=== PATIENT | male | born 1940 | race Caucasian/White ===

== ENCOUNTER 2016-12-22 09:37 | Outpatient (CLI) | payer MEDICARE, OTHER | END 2016-12-22 09:38 | disposition critical access hospital (66) | LOC: EMS 09:37 | PROVIDERS: ATTEND Surgery | DX: R53.1 Weakness (principal); R05 Cough | CPT/HCPCS: A0425; A0429 ==

== ENCOUNTER 2016-12-22 09:38 | Observation (INO) | payer MEDICARE, OTHER ==
[2016-12-22] MEDS ORDERED: SODIUM CHLORIDE 0.9% 1,000 ML IV ONE (10:45)
[2016-12-22] MEDS ORDERED: ONDANSETRON 4 MG/2 ML VIAL IVP STA (10:45)
[2016-12-22] MEDS ORDERED: ALBUTEROL NEB 2.5 MG/3 ML INH STA (10:46)
[2016-12-22] MEDS ORDERED: ONDANSETRON 4 MG/2 ML VIAL ONE (10:47)
[2016-12-22] MEDS ORDERED: ALBUTEROL NEB 2.5 MG/3 ML INH ONE (10:55)
[2016-12-22] MEDS ORDERED: IPRATROPIUM/ALBUTEROL 3 ML NEB INH STA (12:25)
[2016-12-22] MEDS ORDERED: DEXAMETHASONE 10 MG/ML VIAL IVP STA (12:25)
[2016-12-22] MEDS ORDERED: DEXAMETHASONE 10 MG/ML VIAL ONE (12:28)
[2016-12-22] MEDS ORDERED: IPRATROPIUM/ALBUTEROL 3 ML NEB INH ONE (12:29)
[2016-12-22] MEDS ORDERED: OSELTAMIVIR 75 MG CAPSULE PO STA (13:14)
[2016-12-22] MEDS ORDERED: ACETAMINOPHEN 325 MG TABLET PO PRN (13:30)
[2016-12-22] MEDS ORDERED: ONDANSETRON 4 MG/2 ML VIAL IVP PRN (13:30)
[2016-12-22] MEDS ORDERED: SODIUM CHLORIDE FLUSH 0.9% 10 ML SYRINGE IVP PRN (13:30)
[2016-12-22] MEDS ORDERED: IPRATROPIUM/ALBUTEROL 3 ML NEB INH PRN (13:36)
[2016-12-22] MEDS ORDERED: POTASSIUM CHLORIDE 20 MEQ TABLET PO ONE (15:00)
[2016-12-22] MEDS: MAGNESIUM SULFATE 2 GRAM 50 ML IV SCH ×2 (15:01→16:43)
[2016-12-22] MEDS: SODIUM CHLORIDE FLUSH 0.9% 10 ML SYRINGE IVP SCH ×2 (15:01→17:55)
[2016-12-22] MEDS: POTASSIUM CHLORIDE 20 MEQ TABLET PO SCH ×2 (16:34→18:47)
[2016-12-22] MEDS ORDERED: MAGNESIUM SULFATE 2 GRAM 50 ML IV ONE (17:00)
[2016-12-22] MEDS: IPRATROPIUM/ALBUTEROL 3 ML NEB INH SCH ×2 (18:07)
[2016-12-22] MEDS: CARBIDOPA PO SCH (18:46)
[2016-12-22] MEDS: LEVODOPA PO SCH (18:46)
[2016-12-22] MEDS: CALCIUM CARBONATE CHEW 500 MG TABLET PO SCH (20:58)
[2016-12-22] MEDS: OSELTAMIVIR 75 MG CAPSULE PO SCH (20:58)
[2016-12-22] MEDS: guaiFENesin 600 MG TABLET PO SCH (20:59)
[2016-12-22] MEDS ORDERED: EZETIMIBE PO SCH (21:00)
[2016-12-22] MEDS ORDERED: SIMVASTATIN PO SCH (21:00)
[2016-12-22] MEDS ORDERED: CLOPIDOGREL 75 MG TABLET PO SCH (21:00)
[2016-12-22] MEDS ORDERED: SERTRALINE 50 MG TABLET PO SCH (21:00)
[2016-12-22] MEDS ORDERED: FLUDROCORTISONE 0.1 MG TABLET PO SCH (21:00)
[2016-12-23] MEDS: POTASSIUM CHLORIDE 20 MEQ TABLET PO SCH (06:39)
[2016-12-23] MEDS: SODIUM CHLORIDE FLUSH 0.9% 10 ML SYRINGE IVP SCH (06:39)
[2016-12-23] MEDS: CARBIDOPA PO SCH (06:44)
[2016-12-23] MEDS: LEVODOPA PO SCH (06:44)
[2016-12-23] MEDS ORDERED: PANTOPRAZOLE 40 MG TABLET PO SCH (07:00)
[2016-12-23] MEDS ORDERED: FLUDROCORTISONE 0.1 MG TABLET PO SCH (07:00)
[2016-12-23] MEDS: IPRATROPIUM/ALBUTEROL 3 ML NEB INH SCH (08:04)
[2016-12-23] MEDS: OSELTAMIVIR 75 MG CAPSULE PO SCH (08:37)
[2016-12-23] MEDS: guaiFENesin 600 MG TABLET PO SCH (08:37)
[2016-12-23] MEDS: CALCIUM CARBONATE CHEW 500 MG TABLET PO SCH (08:37)
[2016-12-23] MEDS ORDERED: POLYETHYLENE GLYCOL 3350 17 GM PACKET PO SCH (09:00)
[2016-12-23] MEDS ORDERED: ENOXAPARIN 40 MG/0.4 ML SYRINGE SUBQ SCH (09:00)
[2016-12-23] MEDS ORDERED: FLUTICASONE NASAL SPRAY NAS SCH (09:00)
[2016-12-23] MEDS ORDERED: DONEPEZIL 5 MG TABLET PO SCH (12:00)
== END 2016-12-23 11:37 | disposition home or self-care (01) ==
DX: J10.1 Influenza due to other identified influenza virus with other respiratory manifestations (principal); E86.0 Dehydration; G20 Parkinson's disease; I10 Essential (primary) hypertension; I25.10 Atherosclerotic heart disease of native coronary artery without angina pectoris; I25.2 Old myocardial infarction; I11.9 Hypertensive heart disease without heart failure; H54.7 Unspecified visual loss; Z95.5 Presence of coronary angioplasty implant and graft; Z85.46 Personal history of malignant neoplasm of prostate; Z92.3 Personal history of irradiation; K21.9 Gastro-esophageal reflux disease without esophagitis; Z79.02 Long term (current) use of antithrombotics/antiplatelets; Z79.899 Other long term (current) drug therapy
CPT/HCPCS: 36415; 71010; 80048; 80053; 83605; 83690; 83735; 85025; 87275; 87276; 94640; 96365; 96366; 96375; 99284; 99285; A9270; G0378; J7613; J7620

== ENCOUNTER 2017-05-16 11:28 | Outpatient (CLI) | payer MEDICARE, OTHER | END 2017-05-16 11:29 | disposition critical access hospital (66) | LOC: EMS 11:28 | PROVIDERS: ATTEND Surgery | DX: R55 Syncope and collapse (principal); R53.1 Weakness | CPT/HCPCS: A0425; A0427 ==

== ENCOUNTER 2017-05-16 11:48 | Emergency (ER) | payer MEDICARE, OTHER ==
[2017-05-16] MEDS ORDERED: SODIUM CHLORIDE 0.9% 1,000 ML IV ONE (12:26)
--- NOTE | 2017-05-16 12:26 | ED Physician Documentation ---
PD HPI SYNCOPE - Stated complaint Stated Complaint: syncope - Chief complaint Chief Complaint: Neuro - History obtained from History obtained from: Patient, Family, EMS - History of Present Illness Witnessed: Witnessed (76-year-old gentleman with history of labile blood pressure for which she takes Midrin and Florinef, he also has a history of coronary disease and Parkinson's disease. He was at rehab today and bent over to adjust the seat on the weight machine and on getting back up he started to feel dizzy and had brief syncope without injury, he was helped to the ground. On initial evaluation there, his blood pressure was as low as 50/30 and his blood sugar was borderline low. On arrival here he feels fine, and his blood pressures are high. There is no associated chest pain, shortness of breath, or recent dark or tarry stools.) Review of Systems Ten Systems: 10 systems reviewed and negative Constitutional: denies: Fever, Chills Cardiac: denies: Chest pain / pressure, Palpitations Respiratory: denies: Dyspnea, Cough GI: denies: Abdominal Pain, Bloody / black stool PD PAST MEDICAL HISTORY - Past Medical History Cardiovascular: Hypertension, High cholesterol, Coronary artery disease, [place] Respiratory: None Neuro: Parkinson's Endocrine/Autoimmune: None GI: GERD : Other HEENT: Chronic vision loss Psych: None Musculoskeletal: Osteoarthritis Derm: None - Past Surgical History Past Surgical History: Yes General: Appendectomy, Hiatal hernia repair Cardiovascular: Coronary stent HEENT: Cataracts, Tonsil/Adenoidectomy - Present Medications Home Medications: Ambulatory Orders Medication Instructions Recorded Confirmed Ezetimibe/Simvastatin [Vytorin 1 each PO DAILY 10/29/13 05/16/17 10-20 mg Tablet] Mometasone Furoate [Nasonex] 2 sprays LISE DAILY 10/29/13 05/16/17 Sertraline [Zoloft] 100 mg PO DAILY 10/29/13 05/16/17 Potassium Chloride [K-Dur] 20 meq PO QID 02/22/14 05/16/17 Carbidopa/Levodopa [Rytary ER 4 cap PO TID 05/31/16 05/16/17 23.75 mg-95 mg Cap] Donepezil HCl 10 mg PO DAILY 05/31/16 05/16/17 Midodrine HCl 10 mg PO TID 05/31/16 05/16/17 Pantoprazole Sodium [Protonix] 40 mg PO DAILY 05/31/16 05/16/17 Fludrocortisone [Florinef] 0.1 mg PO QPM 12/22/16 05/16/17 Fludrocortisone [Florinef] 0.2 mg PO 0700 12/22/16 05/16/17 Clopidogrel [Plavix] 75 mg PO QPM tablet 12/23/16 05/16/17 - Allergies Allergies/Adverse Reactions: Allergies Allergy/AdvReac Type Severity Reaction Status Date / Time morphine Allergy Hallucinati Verified 05/16/17 11:57 ons - Social History Does the pt smoke?: No Smoking Status: Former smoker Does the pt drink ETOH?: No Does the pt have substance abuse?: No - Family History Family history: reports: Non contributory - Immunizations Immunizations are current?: Yes - POLST Patient has POLST: No POLST Status: Full Code PD ED PE NORMAL - Vitals Vital signs reviewed: Yes - General General: Alert and oriented X 3, No acute distress, Other (Pill-rolling tremor) - HEENT HEENT: PERRL, EOMI - Neck Neck: Supple, no meningeal sign, No bony TTP - Cardiac Cardiac: RRR, No murmur - Respiratory Respiratory: No respiratory distress, Clear bilaterally - Abdomen Abdomen: Non tender - Extremities Extremities: No edema, No calf tenderness / cord - Neuro Neuro: Alert and oriented X 3, Normal speech - Psych Psych: Normal mood, Normal affect Results - Vitals Vitals: Vital Signs - 24 hr 05/16/17 11:49 Temperature 36.7 C Heart Rate 56 L Respiratory 12 Rate Blood Pressure 176/72 H O2 Saturation 98 Oxygen O2 Source Room air - EKG (time done) 1157 Rate: Rate (enter#) (59) Rhythm: NSR [place]: Normal Ischemia: Non specific changes (Mild QTC long and flat T waves inf/lat, unchanged from 05/31/16) Computer interpretation: Agree with computer - Labs Labs: Laboratory Tests 05/16/17 05/16/17 12:14 12:14 WBC 6.0 RBC 3.75 L Hgb 12.4 L Hct 36.7 L MCV 97.7 H MCH 32.9 H MCHC 33.7 RDW 14.3 Plt Count 166 MPV 9.0 Neut # 4.3 Lymph # 1.1 L [place] # 0.4 Eos # 0.2 Baso # 0.1 Absolute Nucleated RBC 0.01 Nucleated RBCs 0.1 Sodium 141 Potassium 3.4 L Chloride 105 Carbon Dioxide 28 Anion Gap 8.0 BUN 16 Creatinine 1.1 Estimated GFR (MDRD) 65 L Glucose 98 Calcium 8.8 Magnesium 1.8 Total Bilirubin 1.0 AST 14 ALT < 10 L Alkaline Phosphatase 66 Total Protein 6.5 L Albumin 3.8 Globulin 2.7 Albumin/Globulin Ratio 1.4 Lipase 54 H PD MEDICAL DECISION MAKING - ED course ED course: 76-year-old gentleman with history of labile blood pressure presents after syncopal episode with hypotension, now resolved. This is not a new phenomenon for him, per the he has this every few months and IV fluids are curative. He remained stable, slightly hypertensive throughout his of ER stay without recurrent syncope or symptoms and preferred discharge. Departure - Departure Disposition: 01 Home, Self Care Clinical Impression: Transient hypotension Syncope Qualifiers: Syncope type: unspecified Qualified Code(s): R55 - Syncope and collapse Hypertension Qualifiers: Hypertension type: essential hypertension Qualified Code(s): I10 - Essential ( primary) hypertension Condition: Good Record reviewed to determine appropriate education?: Yes Instructions: ED Dizziness Syncope Fainting W Pre Comments: Follow-up, next available appointment with Dr. Jimenez, medication changes may be in order. Return if worse.
[2017-05-16 12:51] LABS: BASOPHILS # (AUTO) 0.1 10^3/uL (0.0-0.1); EOSINOPHILS # (AUTO) 0.2 10^3/uL (0.0-0.7); EOSINOPHILS % (AUTO) 3.4 %; HCT - HEMATOCRIT 36.7 % (42.0-52.0); HGB - HEMOGLOBIN 12.4 g/dL (14.0-18.0); LYMPHOCYTES # (AUTO) 1.1 10^3/uL (1.5-3.5); LYMPHOCYTES % (AUTO) 17.8 %; MEAN CORPUSCULAR HEMOGLOBIN 32.9 pg (27.0-31.0); MEAN CORPUSCULAR HGB CONC 33.7 g/dL (32.0-36.0); MEAN CORPUSCULAR VOLUME 97.7 fL (80.0-94.0); MONOCYTES # (AUTO) 0.4 10^3/uL (0.0-1.0); MONOCYTES % (AUTO) 6.5 %; NEUTROPHILS # (AUTO) 4.3 10^3/uL (1.5-6.6); NEUTROPHILS % (AUTO) 71.3 %; NUCLEATED RED BLOOD CELLS AUTO 0.1 /100WBC; RED BLOOD COUNT 3.75 10^6/uL (4.70-6.10); RED CELL DISTRIBUTION WIDTH 14.3 % (12.0-15.0)
[2017-05-16 13:21] LABS: ALBUMIN/GLOBULIN RATIO 1.4 (1.0-2.2); BUN - BLOOD UREA NITROGEN 16 mg/dL (6-20); CALCIUM 8.8 mg/dL (8.5-10.3); CARBON DIOXIDE - CO2 28 mmol/L (21-32); CHLORIDE 105 mmol/L (101-111); CREATININE 1.1 mg/dL (0.6-1.2); GFR - MDRD 65 (>89); GLUCOSE 98 mg/dL (70-100); LIPASE 54 U/L (22-51); MAGNESIUM 1.8 mg/dL (1.7-2.8); POTASSIUM 3.4 mmol/L (3.5-5.0); SODIUM 141 mmol/L (135-145); TOTAL PROTEIN 6.5 g/dL (6.7-8.2)
[2017-05-16 13:45] VITALS: BP 167/69
== END 2017-05-16 13:55 | disposition home or self-care (01) ==
LOC: EDUNIT# → ED 11:48
DX: I95.89 Other hypotension (principal); R55 Syncope and collapse; I10 Essential (primary) hypertension; I25.10 Atherosclerotic heart disease of native coronary artery without angina pectoris; Z98.61 Coronary angioplasty status; G20 Parkinson's disease; E78.00 Pure hypercholesterolemia, unspecified; I25.2 Old myocardial infarction; K21.9 Gastro-esophageal reflux disease without esophagitis; M19.90 Unspecified osteoarthritis, unspecified site; Z87.891 Personal history of nicotine dependence
CPT/HCPCS: 36415; 80053; 83690; 83735; 85025; 93005; 96360; 99284; 99285

== ENCOUNTER 2017-06-25 18:49 | Outpatient (CLI) | payer MEDICARE, OTHER | END 2017-06-25 18:50 | disposition critical access hospital (66) | LOC: EMS 18:49 | PROVIDERS: ATTEND Surgery | DX: R19.7 Diarrhea, unspecified (principal); R53.1 Weakness | CPT/HCPCS: A0425; A0427 ==

== ENCOUNTER 2017-06-25 19:09 | Inpatient (IN) | payer MEDICARE, OTHER ==
[2017-06-25] MEDS ORDERED: SODIUM CHLORIDE 0.9% 1,000 ML IV ONE (19:34)
--- NOTE | 2017-06-25 19:38 | ED Physician Documentation ---
History of Present Illness - Stated complaint Stated Complaint: WEAKNESS/DIARRHEA - Chief complaint Chief Complaint: Neuro - History obtained from History obtained from: Patient, Family - History of Present Illness Timing: Other (77-year-old gentleman with history of Parkinson's, coronary disease, and labile blood pressures has had poor appetite and increasing fatigue for a week. He slipped and fell in the shower 2 nights ago when has persistent headache and neck pain since then and note made that he is on Plavix. He is bruise above his right eye. Since yesterday he has had profuse watery foul-smelling diarrhea with occasional but not current stomach cramps but no fevers or recent antibiotics. He was hypotensive for paramedics and feeling better after a fluid bolus in route.) Review of Systems Ten Systems: 10 systems reviewed and negative Constitutional: denies: Fever, Chills Throat: denies: Dental pain / toothache, Sore throat Cardiac: denies: Chest pain / pressure, Palpitations Respiratory: denies: Dyspnea, Cough PD PAST MEDICAL HISTORY - Past Medical History Cardiovascular: Hypertension, High cholesterol, Coronary artery disease, [place] Respiratory: None Neuro: Parkinson's Endocrine/Autoimmune: None GI: GERD : Other HEENT: Chronic vision loss Psych: None Musculoskeletal: Osteoarthritis Derm: None - Past Surgical History Past Surgical History: Yes General: Appendectomy, Hiatal hernia repair Cardiovascular: Coronary stent HEENT: Cataracts, Tonsil/Adenoidectomy - Present Medications Home Medications: Ambulatory Orders Medication Instructions Recorded Confirmed Ezetimibe/Simvastatin [Vytorin 1 each PO DAILY 10/29/13 06/25/17 10-20 mg Tablet] Sertraline [Zoloft] 100 mg PO DAILY 10/29/13 06/25/17 Potassium Chloride [K-Dur] 20 meq PO QID 02/22/14 06/25/17 Carbidopa/Levodopa [Rytary ER 4 cap PO TID 05/31/16 06/25/17 23.75 mg-95 mg Cap] Donepezil HCl 10 mg PO DAILY 05/31/16 06/25/17 Midodrine HCl 5 mg PO TID 05/31/16 06/25/17 Pantoprazole Sodium [Protonix] 40 mg PO DAILY 05/31/16 06/25/17 Fludrocortisone [Florinef] 0.1 mg PO QPM 12/22/16 06/25/17 Fludrocortisone [Florinef] 0.2 mg PO 0700 12/22/16 06/25/17 Clopidogrel [Plavix] 75 mg PO QPM tablet 12/23/16 06/25/17 Fluticasone Propionate 1 spray LISE DAILY 06/25/17 06/25/17 Naproxen 500 mg PO DAILY PRN 06/25/17 06/25/17 - Allergies Allergies/Adverse Reactions: Allergies Allergy/AdvReac Type Severity Reaction Status Date / Time morphine Allergy Hallucinati Verified 06/25/17 19:16 ons - Living Situation Living Situation: reports: With spouse/s.o. - Social History Does the pt smoke?: No Smoking Status: Former smoker Does the pt drink ETOH?: No Does the pt have substance abuse?: No - Family History Family history: reports: Non contributory - Immunizations Immunizations are current?: Yes - POLST Patient has POLST: No POLST Status: Full Code PD ED PE NORMAL - Vitals Vital signs reviewed: Yes - General General: No acute distress, Well developed/nourished - HEENT HEENT: PERRL, EOMI, Other (Small ecchymosis in the right supraorbital area without facial bony tenderness) - Neck Neck: Supple, no meningeal sign, No bony TTP - Cardiac Cardiac: Other (Irregular irregular and slightly distant but no murmur) - Respiratory Respiratory: No respiratory distress, Clear bilaterally - Abdomen Abdomen: Normal bowel sounds, Soft, Non tender - Extremities Extremities: No deformity, No tenderness to palpate, No edema, No calf tenderness / cord - Neuro Neuro: No motor deficit, No sensory deficit - Psych Psych: Normal mood, Normal affect Results - Vitals Vitals: Vital Signs - 24 hr 06/25/17 06/25/17 19:10 21:12 Temperature 36.3 C L Heart Rate 73 54 L Respiratory 16 16 Rate Blood Pressure 154/68 H 151/78 H O2 Saturation 96 97 Oxygen O2 Source Room air - EKG (time done) 1952 Rate: Rate (enter#) (53) Rhythm: NSR (with PACs) [place]: Normal Intervals: Normal [place] Ischemia: Q waves (small inferior) Computer interpretation: Agree with computer - Labs Labs: Laboratory Tests 06/25/17 06/25/17 06/25/17 19:43 19:43 19:43 WBC 7.8 RBC 4.04 L Hgb 13.4 L Hct 40.6 L MCV 100.5 H MCH 33.1 H MCHC 33.0 RDW 14.7 Plt Count 175 MPV 8.7 Neut # 5.8 Lymph # 1.0 L [place] # 0.7 Eos # 0.2 Baso # 0.1 Absolute Nucleated RBC 0.00 Nucleated RBCs 0.1 Sodium 141 Potassium 3.4 L Chloride 108 Carbon Dioxide 23 Anion Gap 10.0 BUN 16 Creatinine 1.5 H Estimated GFR (MDRD) 45 L Glucose 104 H Lactic Acid Calcium 8.6 Magnesium 1.6 L Total Bilirubin 0.9 AST 17 ALT < 10 L Alkaline Phosphatase 63 Troponin I < 0.04 Total Protein 6.4 L Albumin 4.0 Globulin 2.4 Albumin/Globulin Ratio 1.7 Lipase 152 H 06/25/17 19:43 WBC RBC Hgb Hct MCV MCH MCHC RDW Plt Count MPV Neut # Lymph # [place] # Eos # Baso # Absolute Nucleated RBC Nucleated RBCs Sodium Potassium Chloride Carbon Dioxide Anion Gap BUN Creatinine Estimated GFR (MDRD) Glucose Lactic Acid 1.1 Calcium Magnesium Total Bilirubin AST ALT Alkaline Phosphatase Troponin I Total Protein Albumin Globulin Albumin/Globulin Ratio Lipase - Rads (name of study) CT Head and Cspine Radiology: EMP read contemporaneously (No acute disease, there are degenerative changes in the neck and some atrophy in the head.) PD MEDICAL DECISION MAKING - ED course ED course: 87-year-old gentleman with Parkinson's, coronary disease presents with a week's worth of malaise and poor appetite with a fall with head injury and now diarrhea with evidence of dehydration and acute renal failure with a rise in his creatinine. He was hypotensive prior to arrival. We were able to obtain a stool culture and C. difficile in the emergency department, however with the rise in his creatinine I discussed the case with Dr. Brooks at 1015pm who will place him in observation for dehydration. Departure - Departure Disposition: ED Place in Observation Clinical Impression: Transient hypotension, Hx of coronary artery disease, Parkinson disease, Moderate dehydration Concussion Qualifiers: Encounter type: initial encounter Loss of consciousness presence/duration: with LOC of 30 min or less Qualified Code(s): S06.0X1A - Concussion with loss of consciousness of 30 minutes or less, initial encounter Syncope Qualifiers: Syncope type: unspecified Qualified Code(s): R55 - Syncope and collapse Neck strain Qualifiers: Encounter type: initial encounter Qualified Code(s): S16.1XXA - Strain of muscle, fascia and tendon at neck level, initial encounter Condition: Stable
[2017-06-25 19:47] LABS: BASOPHILS # (AUTO) 0.1 10^3/uL (0.0-0.1); BASOPHILS % (AUTO) 1.1 %; EOSINOPHILS # (AUTO) 0.2 10^3/uL (0.0-0.7); EOSINOPHILS % (AUTO) 3.2 %; HCT - HEMATOCRIT 40.6 % (42.0-52.0); HGB - HEMOGLOBIN 13.4 g/dL (14.0-18.0); LYMPHOCYTES % (AUTO) 12.7 %; MEAN CORPUSCULAR HEMOGLOBIN 33.1 pg (27.0-31.0); MEAN CORPUSCULAR VOLUME 100.5 fL (80.0-94.0); MEAN PLATELET VOLUME 8.7 fL (7.4-11.4); MONOCYTES # (AUTO) 0.7 10^3/uL (0.0-1.0); MONOCYTES % (AUTO) 8.7 %; NEUTROPHILS # (AUTO) 5.8 10^3/uL (1.5-6.6); NEUTROPHILS % (AUTO) 74.3 %; NUCLEATED RED BLOOD CELLS AUTO 0.1 /100WBC; RED BLOOD COUNT 4.04 10^6/uL (4.70-6.10); RED CELL DISTRIBUTION WIDTH 14.7 % (12.0-15.0); UNCORRECTED WHITE BLOOD COUNT 7.8 x10^3/uL; WHITE BLOOD COUNT 7.8 x10^3/uL (4.8-10.8)
[2017-06-25 20:12] LABS: ALBUMIN/GLOBULIN RATIO 1.7 (1.0-2.2); BILIRUBIN,TOTAL 0.9 mg/dL (0.2-1.0); BUN - BLOOD UREA NITROGEN 16 mg/dL (6-20); CALCIUM 8.6 mg/dL (8.5-10.3); CARBON DIOXIDE - CO2 23 mmol/L (21-32); CHLORIDE 108 mmol/L (101-111); CREATININE 1.5 mg/dL (0.6-1.2); GFR - MDRD 45 (>89); GLUCOSE 104 mg/dL (70-100); LIPASE 152 U/L (22-51); MAGNESIUM 1.6 mg/dL (1.7-2.8); POTASSIUM 3.4 mmol/L (3.5-5.0); SODIUM 141 mmol/L (135-145); TOTAL PROTEIN 6.4 g/dL (6.7-8.2)
--- NOTE | 2017-06-25 20:31 | CT Preliminary Report ---
Exam: CT Head W/O IMPRESSION: Generalized age-related cortical atrophic changes without evidence of acute intracranial abnormality. No significant interval change. [facility] SITE ID: [id number]
--- NOTE | 2017-06-25 20:33 | CT Preliminary Report ---
Exam: CT Cervical Spine W/O IMPRESSION: Stable degenerative changes. No evidence of acute fracture. [facility] SITE ID: [id number]
--- NOTE | 2017-06-25 20:34 | CT Report ---
EXAM: CT HEAD EXAM DATE: 06/25/2017 08:17 PM. CLINICAL HISTORY: Head/neck injury. COMPARISON: 03/10/2016. TECHNIQUE: Multiaxial CT images were obtained from the foramen magnum to the vertex. IV contrast: Non e. Reformats: Coronal. In accordance with CT protocol optimization, one or more of the following dose reduction techniques w ere utilized for this exam: automated exposure control, adjustment of mA and/or KV based on patient s ize, or use of iterative reconstructive technique. FINDINGS: Parenchyma: No intraparenchymal hemorrhage. No evidence of mass, midline shift, or CT findings of acu te infarction. Carrero-white differentiation is distinct. Extraaxial Spaces: Normal for age. No subdural or epidural collections identified. Ventricles: The ventricles and cortical sulci are enlarged, consistent with age-related tissue loss. Sinuses: Imaged paranasal sinuses, orbits, and mastoids show no significant abnormality. Bones: No evidence of fracture or calvarial defect. Other: Diffuse chronic microangiopathic white matter changes are evident. IMPRESSION: Generalized age-related cortical atrophic changes without evidence of acute intracranial abnormality. No significant interval change. [facility] Referring Provider Line: [phone] SITE ID: [id number]
--- NOTE | 2017-06-25 20:36 | CT Report ---
EXAM: CT CERVICAL SPINE WITHOUT CONTRAST DATE: 06/25/2017 08:17 PM HISTORY: Head/neck injury. COMPARISONS: 03/10/2016. TECHNIQUE: Thin-section axial images were acquired of the cervical spine without contrast. Post-proce ssing: Coronal and sagittal reformats. Other: None. In accordance with CT protocol optimization, one or more of the following dose reduction techniques w ere utilized for this exam: automated exposure control, adjustment of mA and/or KV based on patient s ize, or use of iterative reconstructive technique. FINDINGS: Alignment: Normal. No scoliosis or spondylolisthesis. Bones: No fracture or bone lesion. Interspace Levels/Facets: Degenerative changes are stable from previous. Musculature: Normal. No fatty atrophy. Other: The paravertebral and prevertebral soft tissues are normal. The lung apices are clear. IMPRESSION: Stable degenerative changes. No evidence of acute fracture. [facility] Referring Provider Line: [phone] SITE ID: [id number]
[2017-06-25] MEDS ORDERED: ACETAMINOPHEN 325 MG TABLET PO PRN (22:13)
[2017-06-25] MEDS ORDERED: HYDROcod/ACETAM 5/325 MG TABLET PO PRN (22:13)
--- NOTE | 2017-06-26 00:04 | ADVANCE CARE PLANNING NOTE ---
Advance Care Planning - Date/Time Date: 06/26/17 Time: 00:03 (started at 23:10 06/25/17) - Purpose of encounter Text: Establish what his goals of care were in the face of a gentleman who is sharply deteriorating from parkinsonism - Parties in attendance Parties in attendance: Hospitalist, Dr. Ana Brooks Patient - Decisional capacity Decisional capacity of: Patient is still intact. He acknowledges memory loss, especially short-term, but still able to express his wishes fully as well as expresses sadness and frustration with this disease process - Subjective/Patient's story Subjective/Patient's story: He was born in [place] but was raised in the [place]. 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 Then he went into the [employer] for over 20 years. 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 He retired at the age of 69. He had to retire because he had already developed heart disease and was slowing down because of it. But he really noticed a change when he found it more more difficult to keep track of things. 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 When he would try and get in and out of a car, especially a two seater with a backseat, he could not do it. He also used to ride dirt bikes. And he remembers one incident where he took his son and [id number] out on the trails. As he was coming around a turn, he was going to stop, look at the view. And when he stopped, he just could not make his foot get off the foot rest and go to the ground. As such when he stopped, never put out his leg, and the bike and he just went over ass over tea kettle. After several months of worsening short term memory loss and gait instability, he was diagnosed with parkinsonism. In the intervening time he has probably developed prostate cancer, and is continued to have heart problems with stents placed. The prostate cancer leaves him with urgency, frequency, nocturia. He has to pee at least once an hour. This is problematic because he has problems with balance that severe. He has developed severe orthostatic hypotension with his parkinsonism and standing up causes him to pass out at times. So he compensates by now having a bedside urinal and a night light in the bed room. He has fallen in the darkness of the bedroom many times trying to get to the bathroom. The passing out started about the same time as his balance issues 15 years ago. He feels that he has taken a sharp turn in the downward direction over the last year. He is more more dependent on his for everything. He can still get up and go to the bathroom, wiped himself. He can undress and get into the shower and bathe himself. Get out of the shower. But when he starts toweling himself off he will lose his balance. He is fallen half a dozen times in the bathroom this last year alone. He is fallen several times in his bedroom. He is able to walk 15 yards of a very slight upward grade in his driveway, up 2 steps into his house, but by the time he gets into the living room he is completely unbalanced. So he has fallen in his living room. He has a walker that he rarely uses. And he has a cane that is hanging up in the closet that he probably never uses. In addition to the ataxia and falls, shortness of breath, urination problems, he is starting to develop dysphagia. He has lost his appetite, and between the anorexia and the sensation of choking , he is not eating. He is probably lost about 70 pounds in the last year alone. He does not want to think about it, but he is starting to feel like the end is coming soon maybe within a year. He has not talked about it with his . He has ideas about what he is willing to accept with his deterioration. And beyond those limits, he does not want to be kept alive. He never wants to go to a residential. But at the same time he acknowledges that his is becoming more more overwhelmed with his care. He dreads the day that she tells him that he may have to go to a long-term facility. His daughter moved in with them 2 or 3 months ago to help take care of him. But even between help from his and his daughter, he wonders if he is going to overwhelm them with his needs. He says that if he is debilitated to the point that he can no longer get out of bed, no longer feed himself, no longer go to the bathroom and be able to help people help him, he is done. He doesn't want to live anymore. Right now, diarrhea has been present for 2 weeks. No one else is sick with it. In the last 2 days he has had rectal incontinence. he is humiliated and frustrated. No blood in the stool. No fever, chills. Mild lower abdominal, pelvic cramping with a strong urge to go. Appetite is worse than ever. - Objective/Medical story Objective/Medical Story: 76-year-old white male with a past medical history of Parkinson's disease associated with orthostatic hypotension and labile blood pressure. He has a history of 3 myocardial infarctions and 2 cardiac stents. Prostate cancer. That was treated with seed implant. He has hyperlipidemia, hypertension in the past. He is a gradual worsening history with regards to parkinsonism that developed 15 years ago. He has a history of multiple multiple falls in the home, orthostatic syncope. He is gradually losing ground and sharply losing it over the last year. was taking care of him and now has her daughter moved in to help take care of them as well in the last 2-3 months. His admissions to the hospital since 2013 have been for appendicitis, elective inguinal hernia repair, rule out [place] with angina, and worsening of his parkinsonism in the face of fluid in December 2016. He now presents with a two-week history of diarrhea getting gradually worse. No fever no chills no blood. No recent antibiotic use. No one else is sick in the home. No recent travel. He is afebrile, hypotensive, and lab studies show a doubling of his creatinine indicating dehydration. - Goals of Care Goals of care determinations: 1. He wants to at home. 2. He never wants to go to a long-term facility. 3. He already feels that he is a burden to his family with the amount of help he needs, but he draws a line it being completely bedbound unable to get out of bed anymore. 4. He never wants to have tube feedings, and he never wants to be resuscitated in the event of a massive cardiac arrest, respiratory arrest, or stroke - Plan Plan: 1. I pointed out to him that he is actually made a lot of decisions on his own. He has thought quite a bit about this. But he needs to share his thought process and his desires with his and kids as well as his primary care provider, Dr. Jimenez. 2. After discussion with his family, consider palliative care with transition to hospice care when the time comes based on his criteria of what is acceptable. He will let Dr. Jimenez know when he is ready for the initial step of Palliative Care. 3. Flesh out his goals with regards to staying at home and never going to a long-term facility. What does that mean in the inevitability of progressive lack of ambulation, inability to swallow, and more memory loss. How will his and daughter deal with that? He thinks he has enough finances to hire in-home support for several hours a day to help his and daughter. He should start researching that and explore people to hire now. 4. He wishes to be DO NOT RESUSCITATE DO NOT INTUBATE. In looking at our Summary in [employer], there is no POLST form for the patient. I have tried to access [employer] but there is an error in entering into the patient's chart area. For completeness sake, will probably fill out a pulsed form before he leaves - Code Status Code Status: Do Not Attempt Resuscitation - Time Spent on Advance Care Planning Time spent on advance care plannin minutes
[2017-06-26] MEDS: SODIUM CHLORIDE 0.9% 1,000 ML IV SCH ×2 (00:40→11:24)
[2017-06-26] MEDS: SODIUM CHLORIDE FLUSH 0.9% 10 ML SYRINGE IVP PRN (00:40)
[2017-06-26] MEDS ORDERED: MAGNESIUM SULFATE 2 GRAM 50 ML IV SCH (01:35)
[2017-06-26] MEDS ORDERED: POTASSIUM CHLORIDE 20 MEQ TABLET PO SCH (02:00)
--- NOTE | 2017-06-26 04:42 | HISTORY & PHYSICAL EXAMINATION ---
DATE OF ADMISSION: 06/25/2017 PRIMARY CARE PROVIDER: Cecil Jimenez PA-C ADMITTING PROVIDER: Ana Brooks MD CHIEF COMPLAINT: Severe diarrhea with increasing weakness and superimposed orthostatic hypotension on already chronic hypotension. HISTORY OF PRESENT ILLNESS: The patient is an exceedingly pleasant 77-year-old white male who unfortunately developed parkinsonism about 15 years ago. His parkinsonism has progressed with increasing falls, increasing ataxia and severe orthostatic hypotension requiring Florinef and midodrine. He also has significant coronary artery disease with 3 myocardial infarctions, and 2 stents. In the last few years. He has been hospitalized for appendicitis in October 2013, rule out ID in May 2016, and severe worsening with parkinsonism in the face of influenza December 2016. He has been losing ground significantly over the last year. He describes increasing fall, increasing dysphasia, increasing urinary incontinence, as well as a 70 pound weight loss. He has had no recent antibiotic therapy. No one else in the family is sick. He has had no recent travel, but he developed diarrhea about 2 weeks ago. The diarrhea smelt horrible. It is putrid and he says that it smells worse than somebody dying. There has been no blood in the stool. He has lower pelvic cramping associated with it and a strong urgency to go. In the last couple of days, he has not had the strength to get to the bathroom in time and he has had loss of control. This gentleman already has episodes of syncope because of orthostatic hypotension and this has made everything worse. He has no appetite. A few months ago he was tried on Flomax and it caused syncope so he is not doing that anymore either. He slipped and fell in the shower 2 nights ago. He has persisted back of head pain and stiff neck since that time. He is on Plavix. I am not clear about why EMS was activated for this, but he was hypotensive in the field and brought in to the emergency room. He says he does not know why he was brought in by EMS either. He was evaluated by Dr. Taylor, where he was afebrile, and in the supine position, had normal blood pressure of 154/68. O2 saturation was 96%. He was evaluated to make sure he did not have a C-spine fracture, subdural hematoma, urinary tract infection. Other than the ecchymosis in the right supraorbital area, nothing else was found on physical exam. Stool is C difficile negative. However, the patient is hypokalemic, and has a creatinine that has gone from 0.9 to 1.5. In the face of the fact that he is already hypotensive from his disease process, and has diarrhea, most likely making him dehydrated again, he is being placed in observation for hydration and correction of his electrolyte imbalance. PAST MEDICAL HISTORY: 1. Coronary artery disease, status post 3 MIs and subsequent percutaneous interventions. 2. Appendicitis 10/2013 with appendectomy. 3. History of elective right inguinal hernia repair and subsequent left inguinal hernia repair. 4. Prostate cancer status post radiation seeding. 5. Gastroesophageal reflux disease with hiatal hernia and repair. 6. Hypertension. 7. Dyslipidemia. 8. Parkinson disease with subsequent short-term memory loss, dysphagia, severe gait ataxia, orthostatic hypotension. 9. Mild obstructive sleep apnea hypopnea syndrome. Last used CPAP approximately 09/2013. 10. Status post tonsillectomy 11. history of intraoccular lens implant after cataract removal. ALLERGIES: MORPHINE CAUSES NAUSEA AND VOMITING. MEDICATIONS: 1. Donezepil 10 mg daily. 2. Florinef 0.2 mg at 7 in the morning and 0.1 mg in the evening. 3. Fluticisone nasal spray 1 spray each nostril daily. 4. Potassium 20 mEq 4 times a day. 5. Midodrine 5 mg 3 times a day. 6. Naproxen 500 mg daily. 7. Protonix 40 mg daily. 8. Carbidopa/levodopa extended release 23.75 mg 4 capsules p.o. t.i.d. 9. Vytorin, unknown dose daily. 10. Zoloft 100 mg daily. 11. Plavix 75 mg daily. SOCIAL HISTORY: He was born in [place], [place], but raised in the [facility]. 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 He smoked cigarettes when he was in the [employer]. Never had problems with alcohol abuse. He has no history of recreational substance abuse. He is to his first , they live in their own home. It is becoming increasingly difficult for him, and he says that his has become overwhelmed and daughter moved in 2-3 months ago to help take care of him. FAMILY HISTORY: Father and mother are of old age. His children are adopted. REVIEW OF SYSTEMS CONSTITUTIONAL: He has had a gradual failing constitutionally over the last year with increasing weight loss, dysphasia, falls. Denies fevers, sweats. ENT: Increasing dysphasia and sensation of choking. Denies vision loss. Cataracts have already been taken care of. PULMONARY: Denies coughing, wheezing, chest congestion. Has no history of emphysema. CARDIAC: Denies history of congestive heart failure, but has had chronic dyspnea on exertion for the last 3-4 years. No real edema, orthopnea. Has not had angina since his rule out ID admission 05/2016. Denies atrial fibrillation. Valvular heart disease. He had an echocardiogram in May 2016, which showed mild concentric left ventricular hypertrophy and an ejection fraction of 55%. Mild sclerotic aortic and mitral valve. GASTROINTESTINAL: Positive as above. GENITOURINARY: Positive as above. SKIN: Because of his falls, he is covered in bruises, but denies body rashes or other skin lesions other than the bruises. PSYCHIATRIC: Gradually increasing depression and sadness and grief. He says he is not afraid to , but has been procrastinating thinking about the inevitability. CENTRAL NERVOUS SYSTEM: Positive as above. PHYSICAL EXAMINATION: GENERAL: On examination, he is an exceedingly pleasant, lean, lanky, elderly male, who is lying comfortably in the bed and has bilateral pinrolling tremors as he tries to raise his arm and scratch his scalp. He is comfortable. VITAL SIGNS: Temperature of 36.3, pulse in the 50s that is sinus, blood pressure 157/67, respirations 18, 97% on room air. HEENT: On head and neck examination, he has enough male pattern baldness that he has developed actinic keratoses on his scalp. He has a bruise over his right eyebrow. Pupils are reactive. Sclerae nonicteric. Some nystagmus in the horizontal. Oral mucosa is quite dry, pink, but there is a laceration of the tongue. No buccal mucosal lesions. Poor dentition and halitosis. NECK: Supple with shotty adenopathy, no goiter or bruits. LUNGS: Clear to auscultation and percussion. Initially, he has one rhonchi in the right mid lung and then he coughs and that clears. No increased respiratory effort talking to me. CARDIOVASCULAR: PMI is normally placed with a regular rate and rhythm. ABDOMEN: Soft, scaphoid, nontender with hyperactive bowel sounds. Nondistended. No rebound or guarding. There is some discomfort in the suprapubic area, but not severe. EXTREMITIES: Gaunt with severe muscle wasting. Trace edema around the malleoli. No clubbing or cyanosis. SKIN: Covered in bruises, especially the forearms, shins, buttock. NEUROLOGICAL: He has bilateral pin rolling tremors with the right worse than the left. He is unable to sit up in bed without my assisting him in getting his feet to the floor when I helped him. When he does do this, he gets lightheaded and feels a wolf to the head. He does not have focal deficits, but he does have cogwheel rigidity that it is quite severe of the upper extremities. He is oriented to place, person but not time. He is a lucid historian. He says he can remember everything from the past but cannot remember what he had for breakfast this morning. Voice waiver is between being normal tone to being very soft and almost nonexistent. I suspect some dysphonia from parkinsonism affecting his vocal cords. He is constantly clearing his throat, and again, I suspect some dysphagia from parkinsonism. LABORATORIES: Sodium is 141, potassium 3.4, BUN 16, creatinine was 0.9 on 2016 and is 1.5. Random glucose is 104. Lactic acid 1.1. Magnesium low 1.6. Troponin less than 0.04. Lipase is 152. White cell count is normal, hemoglobin is stable at 13.4, MCV is 100.5. He has had gradually increasing macrocytosis since 2016. Platelets are 175, no urinalysis today. He has had cervical spine CT, head CT done. He has stable degenerative changes in his neck. No acute fracture. Head CT has general age-related cortical atrophic changes without evidence of acute intracranial abnormality. ASSESSMENT/PLAN: 1. Dehydration from diarrhea. Initial clostridium difficile toxin is negative, but check ova and parasites for protozoal illness because the stool is so foul swelling. Also check cultures. In the meantime, start IV fluids 0.9 normal saline at 100 mL an hour. 2. Mild electrolyte abnormalities in the form of potassium and magnesium deficits. Supplement IV n.p.o. 3. This gentleman has a long history of orthostatic hypotension, resulting in the use of midodrine and Florinef. Those will be resumed. Orthostatics were not checked in the emergency room, but on his exam findings when I get him up from bed and he gets lightheaded, it is most likely still present. This is all worsened by the fact that he is dehydrated. We will resume his usual medications. 4. Parkinsonism with severe deterioration in the last year. Advance care planning dictated under separate note. 5. DO NOT RESUSCITATE, DO NOT INTUBATE status. 6. Deep venous thrombosis prophylaxis will be compression stockings. JOB #: [id number] EXT JOB #:[id number] [email or web address]
[2017-06-26] MEDS: SODIUM CHLORIDE FLUSH 0.9% 10 ML SYRINGE IVP SCH ×3 (05:05→20:11)
[2017-06-26] MEDS ORDERED: MIDODRINE HCL 5 MG PO SCH (06:00)
[2017-06-26] MEDS ORDERED: CARBIDOPA PO SCH (06:00)
[2017-06-26] MEDS ORDERED: LEVODOPA PO SCH (06:00)
[2017-06-26 06:21] LABS: BILIRUBIN,URINE NEGATIVE (NEGATIVE)
[2017-06-26] MEDS: PANTOPRAZOLE 40 MG TABLET PO SCH (06:25)
[2017-06-26 06:46] LABS: UA CHARGE (STRIP ONLY) YES; UR CULTURE IF IND NOT INDICATED
[2017-06-26] MEDS ORDERED: FLUDROCORTISONE 0.1 MG TABLET PO SCH ×2 (07:00→08:55)
[2017-06-26 07:56] LABS: CALCIUM 8.4 mg/dL (8.5-10.3); POTASSIUM 2.9 mmol/L (3.5-5.0)
[2017-06-26 08:49] LABS: AMYLASE 164 U/L (28-100); LIPASE 143 U/L (22-51)
[2017-06-26] MEDS ORDERED: FLUTICASONE NASAL SPRAY NAS SCH (09:00)
[2017-06-26] MEDS ORDERED: DONEPEZIL HCL 10 MG PO SCH (09:00)
[2017-06-26] MEDS ORDERED: PANTOPRAZOLE SODIUM 40 MG PO SCH (09:00)
[2017-06-26] MEDS ORDERED: SIMVASTATIN PO SCH (09:00)
[2017-06-26] MEDS ORDERED: EZETIMIBE PO SCH (09:00)
[2017-06-26] MEDS: MIDODRINE HCL 5 MG PO SCH ×3 (09:26→18:57)
[2017-06-26] MEDS: Carbidopa/Levodopa [Rytary Er 23.75 Mg-95 Mg Cap] PO SCH ×3 (09:27→18:57)
[2017-06-26] MEDS: DONEPEZIL 5 MG TABLET PO SCH (09:29)
[2017-06-26] MEDS: SERTRALINE 50 MG TABLET PO SCH (09:30)
[2017-06-26] MEDS: POTASSIUM CHLORIDE 20 MEQ TABLET PO SCH ×4 (09:31→20:11)
[2017-06-26] MEDS: POLYETHYLENE GLYCOL 3350 17 GM PACKET PO SCH (09:32)
[2017-06-26] MEDS: FLUTICASONE NASAL SPRAY NAS SCH ×3 (09:32)
[2017-06-26] MEDS: SACCHAROMYCES BOULARDII 250 MG CAPSULE PO SCH ×2 (09:38→16:02)
[2017-06-26] MEDS ORDERED: LOPERAMIDE 2 MG CAPSULE PO PRN (10:01)
[2017-06-26] MEDS ORDERED: POTASSIUM CHLOR 20 MEQ/100 ML 100 ML IV ONE (10:02)
--- NOTE | 2017-06-26 10:29 | PROVIDER PROGRESS NOTE ---
Subjective - Prog Note Date Prog Note Date: 06/26/17 - Subjective Pt reports feeling: No change Subjective: pt report he still has diarrhea. He denies abdominal pain, fever, chill, bloody stool. No chest pain, headache. Current Medications - Current Medications Current Medications: Active Medications Acetaminophen (Tylenol) 650 mg PO Q4HR PRN PRN Reason: Pain 1 to 4 Acetaminophen/Hydrocodone Bitart (Cord 5/325) 1 tab PO Q4HR PRN PRN Reason: Pain 5 to 7 Clopidogrel Bisulfate (Plavix) 75 mg PO QPM BREN Donepezil HCl (Aricept) 10 mg PO DAILY [facility] Last Admin: 06/26/17 09:29 Dose: 10 mg Fludrocortisone Acetate (Florinef) 0.1 mg PO 1900 BREN Fludrocortisone Acetate (Florinef) 0.2 mg PO 0800 BREN Sodium Chloride (Normal Saline 0.9%) 1,000 mls @ 100 mls/hr IV .Q10H [facility] Last Admin: 06/26/17 00:40 Dose: 100 mls/hr Potassium Chloride (Potassium Chloride) 100 mls @ 100 mls/hr IV Q1H BREN Loperamide HCl (Imodium) 2 mg PO QID PRN PRN Reason: Diarrhea Pantoprazole Sodium (Protonix) 40 mg PO QDAC [facility] Last Admin: 06/26/17 06:25 Dose: 40 mg Carbidopa/Levodopa [ Rytary Er 23.75 Mg- 95 Mg Cap] 4 each PO 0800,1300,1900 [facility] Last Admin: 06/26/17 09:27 Dose: 4 each (Ezetimibe/Simvastatin [Vytorin 10-20 Mg Tablet]) 1 each PO QPM BREN (Midodrine Hcl [ Midodrine Hcl] 5 Mg) Tab 2 each PO 0800,1300,1900 [facility] Last Admin: 06/26/17 09:26 Dose: 2 each Fluticasone Nasal (Hasty) 2 each LISE DAILY [facility] Last Admin: 06/26/17 09:32 Dose: 2 each Polyethylene Glycol (Miralax) 17 gm PO DAILY [facility] Last Admin: 06/26/17 09:32 Dose: Not Given Potassium Chloride (K-Dur) 20 meq PO QID [facility] Last Admin: 06/26/17 09:31 Dose: 20 meq Saccharomyces Boulardii (Florastor) 250 mg PO BIDWM [facility] Last Admin: 06/26/17 09:38 Dose: 250 mg Sertraline HCl (Zoloft) 100 mg PO DAILY [facility] Last Admin: 06/26/17 09:30 Dose: 100 mg Sodium Chloride (Normal Saline Flush 0.9%) 10 ml IVP PRN PRN PRN Reason: NEEDED PER PROVIDER ORDERS Last Admin: 06/26/17 00:40 Dose: 10 ml Sodium Chloride (Normal Saline Flush 0.9%) 10 ml IVP Q8HR [facility] Last Admin: 06/26/17 05:05 Dose: Not Given Ezetimibe/Simvastatin [Vytorin 10-20 mg Tablet] 1 each PO DAILY 10/29/13 Sertraline [Zoloft] 100 mg PO DAILY 10/29/13 Potassium Chloride [K-Dur] 20 meq PO QID 02/22/14 Carbidopa/Levodopa [Rytary ER 23.75 mg-95 mg Cap] 4 cap PO 0800,1300,1900 Donepezil HCl 10 mg PO DAILY 05/31/16 Pantoprazole Sodium [Protonix] 40 mg PO DAILY 05/31/16 Fludrocortisone [Florinef] 0.1 mg PO QPM 12/22/16 Fludrocortisone [Florinef] 0.2 mg PO 0700 12/22/16 Fluticasone Propionate 2 spray LISE DAILY 06/25/17 Naproxen 500 mg PO DAILY PRN 06/25/17 Midodrine HCl 10 mg PO 0800,1300,1900 06/26/17 Objective - Vital Signs/Intake & Output Vital Signs: Vital Signs x48h Temp Pulse Resp BP Pulse Ox 06/26/17 07:53 36.5 C 60 16 148/59 H 98 06/26/17 05:22 36.4 C L 68 18 138/61 H 96 Intake & Output: Intake & Output 06/23/17 06/24/17 06/25/17 06/26/17 23:59 23:59 23:59 23:59 Intake Total 939 Output Total 200 Balance 739 - Objective General Appearance: positive: No acute distress, Alert. negative: Lethargic Eyes Bilateral: positive: Normal inspection, PERRL, EOMI, No lid inflammation, Conjunctivae nml ENT: positive: ENT inspection nml, Pharynx nml, No signs of dehydration. negative: Purulent nasal drainage, Pharyngeal erythema, Oral lesions Neck: positive: Nml inspection, Thyroid nml, No JVD, Trachea midline. negative : Thyromegaly, Lymphadenopathy (R), Lymphadenopathy (L), Stiff neck, Swelling/ bruising, Tracheal deviation Respiratory: positive: Chest non-tender, No respiratory distress, Breath sounds nml. negative: Wheezes, Rales, Rhonchi Cardiovascular: positive: Regular rate & rhythm, No murmur, No gallop. negative : Extrasystoles, Tachycardia, Bradycardia, Systolic murmur, Diastolic murmur Peripheral Pulses: 2+ Radial (R), 2+ Radial (L), 2+ Dorsalis pedis (R), 2+ Dorsalis pedis (L) Abdomen: positive: Non-tender, No distention, Other (hyperactivity bowel movement). negative: Tenderness, Guarding, Rebound Back: positive: Nml inspection. negative: CVA tenderness (R), CVA tenderness (L ) Skin: positive: Color nml, Warm, Dry. negative: Cyanosis, Diaphoresis, Skin rash Extremities: positive: Non-tender, Full ROM, Nml appearance. negative: Pedal edema, Venessa's sign/cords Neurologic/Psychiatric: positive: Oriented x3, Sensation nml, Mood/affect nml. negative: Sensory loss, Facial droop, Slurred/abnml speech, Depressed mood/ affect - Lab Results Fish Bones: 06/25/17 19:43 06/26/17 07:36 Other Labs: Lab Results x24hrs 06/26/17 06/26/17 06/26/17 Range/Units 07:36 07:36 05:50 Sodium 139 (135-145) mmol/L Potassium 2.9 L (3.5-5.0) mmol/L Chloride 108 (101-111) mmol/L Carbon Dioxide 25 (21-32) mmol/L Anion Gap 6.0 (6-13) BUN 15 (6-20) mg/dL Creatinine 1.0 (0.6-1.2) mg/dL Estimated GFR (MDRD) 72 L (>89) Glucose 83 (70-100) mg/dL Calcium 8.4 L (8.5-10.3) mg/dL Amylase 164 H (28-100) U/L Lipase 143 H (22-51) U/L Urine Color YELLOW Urine Clarity CLEAR (CLEAR) Urine pH 6.0 (5.0-7.5) PH Ur Specific [place] >=1.030 H (1.002-1.030) Urine Protein NEGATIVE (NEGATIVE) mg/dL Urine Glucose (UA) NEGATIVE (NEGATIVE) mg/dL Urine Ketones NEGATIVE (NEGATIVE) mg/dL Urine Occult Blood NEGATIVE (NEGATIVE) Urine Nitrite NEGATIVE (NEGATIVE) Urine Bilirubin NEGATIVE (NEGATIVE) Urine Urobilinogen 0.2 (NORMAL) (NORMAL) E.U./dL Ur Leukocyte Esterase NEGATIVE (NEGATIVE) Ur Microscopic Review NOT INDICATED Urine Culture Comments NOT INDICATED Stool Leukocytes, Qual (Negative) 06/26/17 Range/Units 05:50 Sodium (135-145) mmol/L Potassium (3.5-5.0) mmol/L Chloride (101-111) mmol/L Carbon Dioxide (21-32) mmol/L Anion Gap (6-13) BUN (6-20) mg/dL Creatinine (0.6-1.2) mg/dL Estimated GFR (MDRD) (>89) Glucose (70-100) mg/dL Calcium (8.5-10.3) mg/dL Amylase (28-100) U/L Lipase (22-51) U/L Urine Color Urine Clarity (CLEAR) Urine pH (5.0-7.5) PH Ur Specific [place] (1.002-1.030) Urine Protein (NEGATIVE) mg/dL Urine Glucose (UA) (NEGATIVE) mg/dL Urine Ketones (NEGATIVE) mg/dL Urine Occult Blood (NEGATIVE) Urine Nitrite (NEGATIVE) Urine Bilirubin (NEGATIVE) Urine Urobilinogen (NORMAL) E.U./dL Ur Leukocyte Esterase (NEGATIVE) Ur Microscopic Review Urine Culture Comments Stool Leukocytes, Qual POSITIVE (Negative) Assessment/Plan - Problem List (1) Diarrhea Impression: C.Diff test is negative. Pt did not take antibiotics at home meds list. No bloody stool, no abdominal pain or cramp continue to check stool culture and parasite/Ov test add imodium PRN add Florastor continue IVF correct electrolytic, follow blood test (2) Elevated amylase and lipase Impression: pt continue to have diarrhea, although C.Diff test negative. with elevated lipase and amylase, consideration pancreatitis or bile pathway problem as the etiology change diet to clear liquid diet daily check lipase and amylase IVF US of abdomen (3) Moderate dehydration Impression: IVF, lab test (4) Parkinson disease Impression: resume home medication, neuro check, closely monitor (5) Hypokalemia Impression: today pt's potassium 2.9, pt did not have palpitation, chest pain, or other cardiac issue today resume home Potassium regime, add 2X 10 meq of K recheck CMP. closely monitor with tele, vital (6) Hx of coronary artery disease Impression: stable, closely monitor with tele, vital resume home meds
[2017-06-26] MEDS: POTASSIUM CHLOR 10 MEQ/100 ML 100 ML IV SCH ×2 (11:14→12:37)
[2017-06-26 14:44] LABS: BILIRUBIN,URINE NEGATIVE (NEGATIVE)
[2017-06-26] MEDS ORDERED: IOPAMIDOL-300 100 ML VIAL IVP ONE (18:07)
[2017-06-26] MEDS ORDERED: IOPAMIDOL-300 50 ML VIAL PO ONE (18:07)
[2017-06-26] MEDS: FLUDROCORTISONE 0.1 MG TABLET PO SCH (18:57)
--- NOTE | 2017-06-26 19:52 | Ultrasound Preliminary Report ---
Exam: US Abdomen Limited IMPRESSION: 1. No gallstones, cholecystitis or bile duct obstruction. 2. Limited visualization of the liver as above. [facility] SITE ID: [id number]
--- NOTE | 2017-06-26 19:54 | Ultrasound Report ---
EXAM: ABDOMEN ULTRASOUND LIMITED, RUQ EXAM DATE: 06/26/2017 05:54 PM. CLINICAL HISTORY: Pancreatitis. COMPARISON: None. TECHNIQUE: Real-time scanning was performed with static images obtained. FINDINGS: Liver: Suboptimal assessment of the liver due to bowel gas artifact and patient motion from Parkinson 's disease and hiccups. The precise portions appear normal. 15.3 cm. Main portal vein flow: Hepatopet al. Gallbladder: Normal. No stones, wall thickening, or sonographic Abel's sign. Biliary System: CBD measures 5 mm. No intrahepatic or extrahepatic ductal dilatation. Other: There is an 8.9 cm simple appearing right renal cyst. No hydronephrosis. IMPRESSION: 1. No gallstones, cholecystitis or bile duct obstruction. 2. Limited visualization of the liver as above. [facility] Referring Provider Line: [phone] SITE ID: [id number]
--- NOTE | 2017-06-26 20:00 | CT Preliminary Report ---
Exam: CT Abdomen/Pelvis W/ IMPRESSION: 1. No bowel obstruction, fluid collection or acute inflammatory process. [facility] SITE ID: [id number]
--- NOTE | 2017-06-26 20:03 | CT Report ---
EXAM: CT ABDOMEN AND PELVIS EXAM DATE: 06/26/2017 06:08 PM. CLINICAL HISTORY: Persistent diarrhea, colitis, abdominal discomfort. COMPARISONS: None. TECHNIQUE: Routine helical CT imaging was performed through the abdomen and pelvis. IV contrast: 100 mL Isovue-300. Enteric contrast: No. Reconstructions: Coronal and sagittal. In accordance with CT protocol optimization, one or more of the following dose reduction techniques w ere utilized for this exam: automated exposure control, adjustment of mA and/or KV based on patient s ize, or use of iterative reconstructive technique. FINDINGS: Lung Bases: Unremarkable. Coronary artery calcifications noted. Liver: Normal. No masses. Gallbladder/Bile Ducts: Phrygian noted. Otherwise unremarkable.. Spleen: Normal. Pancreas: Normal. Adrenal Glands: Normal. Kidneys: There is a simple 9 cm cyst at the lower pole of the right kidney. No hydronephrosis. Peritoneal Cavity/Bowel: Normal. No free fluid, free air or adenopathy. No masses or acute inflammato ry process. No significant bowel wall thickening. Pelvic Organs: The urinary bladder is unremarkable. Prostate brachytherapy seed implants noted. There is no pelvic lymphadenopathy or fluid collection. Vasculature: No aneurysms or other significant abnormality. Bones: No significant abnormality. Other: None. IMPRESSION: 1. No bowel obstruction, fluid collection or acute inflammatory process. [facility] Referring Provider Line: [phone] SITE ID: [id number]
[2017-06-26] MEDS: SIMVASTATIN PO SCH (20:10)
[2017-06-26] MEDS: EZETIMIBE PO SCH (20:10)
[2017-06-26] MEDS: CLOPIDOGREL 75 MG TABLET PO SCH (20:11)
[2017-06-27] MEDS: PANTOPRAZOLE 40 MG TABLET PO SCH (06:39)
[2017-06-27] MEDS: SODIUM CHLORIDE FLUSH 0.9% 10 ML SYRINGE IVP SCH ×3 (06:41→21:45)
[2017-06-27 09:22] LABS: ALBUMIN/GLOBULIN RATIO 1.5 (1.0-2.2); BASOPHILS % (AUTO) 1.1 %; BILIRUBIN,TOTAL 1.2 mg/dL (0.2-1.0); BUN - BLOOD UREA NITROGEN 10 mg/dL (6-20); CALCIUM 8.7 mg/dL (8.5-10.3); CARBON DIOXIDE - CO2 22 mmol/L (21-32); CHLORIDE 107 mmol/L (101-111); CREATININE 0.9 mg/dL (0.6-1.2); EOSINOPHILS # (AUTO) 0.2 10^3/uL (0.0-0.7); EOSINOPHILS % (AUTO) 4.2 %; GFR - MDRD 82 (>89); GLUCOSE 84 mg/dL (70-100); HCT - HEMATOCRIT 37.8 % (42.0-52.0); HGB - HEMOGLOBIN 12.9 g/dL (14.0-18.0); LYMPHOCYTES # (AUTO) 0.9 10^3/uL (1.5-3.5); MEAN CORPUSCULAR HEMOGLOBIN 33.5 pg (27.0-31.0); MEAN CORPUSCULAR HGB CONC 34.2 g/dL (32.0-36.0); MEAN CORPUSCULAR VOLUME 97.9 fL (80.0-94.0); MONOCYTES # (AUTO) 0.3 10^3/uL (0.0-1.0); NEUTROPHILS # (AUTO) 2.7 10^3/uL (1.5-6.6); NEUTROPHILS % (AUTO) 65.7 %; NUCLEATED RED BLOOD CELLS AUTO 0.1 /100WBC; POTASSIUM 2.7 mmol/L (3.5-5.0); RED BLOOD COUNT 3.86 10^6/uL (4.70-6.10); RED CELL DISTRIBUTION WIDTH 14.4 % (12.0-15.0); SODIUM 141 mmol/L (135-145); TOTAL PROTEIN 6.3 g/dL (6.7-8.2); UNCORRECTED WHITE BLOOD COUNT 4.2 x10^3/uL; WHITE BLOOD COUNT 4.2 x10^3/uL (4.8-10.8)
[2017-06-27] MEDS: SODIUM CHLORIDE 0.9% 1,000 ML IV SCH (10:10)
[2017-06-27] MEDS: POTASSIUM CHLORIDE 20 MEQ TABLET PO SCH ×4 (10:11→21:50)
[2017-06-27] MEDS: FLUDROCORTISONE 0.1 MG TABLET PO SCH ×2 (10:11→19:37)
[2017-06-27] MEDS: DONEPEZIL 5 MG TABLET PO SCH (10:12)
[2017-06-27] MEDS: POLYETHYLENE GLYCOL 3350 17 GM PACKET PO SCH (10:12)
[2017-06-27] MEDS: FLUTICASONE NASAL SPRAY NAS SCH ×3 (10:12)
[2017-06-27] MEDS: SACCHAROMYCES BOULARDII 250 MG CAPSULE PO SCH ×2 (10:12→18:00)
[2017-06-27] MEDS: SERTRALINE 50 MG TABLET PO SCH (10:12)
[2017-06-27] MEDS: Carbidopa/Levodopa [Rytary Er 23.75 Mg-95 Mg Cap] PO SCH ×3 (10:13→19:39)
[2017-06-27] MEDS: MIDODRINE HCL 5 MG PO SCH ×3 (10:13→19:37)
[2017-06-27] MEDS: POTASSIUM CHLOR 10 MEQ/100 ML 100 ML IV SCH ×2 (11:06→13:37)
--- NOTE | 2017-06-27 12:38 | PROVIDER PROGRESS NOTE ---
Subjective - Prog Note Date Prog Note Date: 06/27/17 - Subjective Pt reports feeling: Improved Subjective: pt's diarrhea is great improved. pt is still very weak. Will advance pt's diet to see if tolerated Current Medications - Current Medications Current Medications: Active Medications Acetaminophen (Tylenol) 650 mg PO Q4HR PRN PRN Reason: Pain 1 to 4 Acetaminophen/Hydrocodone Bitart ([place] 5/325) 1 tab PO Q4HR PRN PRN Reason: Pain 5 to 7 Clopidogrel Bisulfate (Plavix) 75 mg PO QPM [facility] Last Admin: 06/26/17 20:11 Dose: 75 mg Donepezil HCl (Aricept) 10 mg PO DAILY [facility] Last Admin: 06/27/17 10:12 Dose: 10 mg Fludrocortisone Acetate (Florinef) 0.1 mg PO 1900 [facility] Last Admin: 06/26/17 18:57 Dose: 0.1 mg Fludrocortisone Acetate (Florinef) 0.2 mg PO 0800 [facility] Last Admin: 06/27/17 10:11 Dose: 0.2 mg Sodium Chloride (Normal Saline 0.9%) 1,000 mls @ 100 mls/hr IV .Q10H [facility] Last Admin: 06/27/17 10:10 Dose: 100 mls/hr Potassium Chloride (Potassium Chloride) 100 mls @ 100 mls/hr IV Q1H [facility] Stop: 06/27/17 12:59 Last Admin: 06/27/17 11:06 Dose: 100 mls/hr Loperamide HCl (Imodium) 2 mg PO QID PRN PRN Reason: Diarrhea Last Admin: 06/26/17 20:10 Dose: 2 mg Pantoprazole Sodium (Protonix) 40 mg PO QDAC [facility] Last Admin: 06/27/17 06:39 Dose: 40 mg Carbidopa/Levodopa [ Rytary Er 23.75 Mg- 95 Mg Cap] 4 each PO 0800,1300,1900 [facility] Last Admin: 06/27/17 10:13 Dose: 4 each (Ezetimibe/Simvastatin [Vytorin 10-20 Mg Tablet]) 1 each PO QPM [facility] Last Admin: 06/26/17 20:10 Dose: 1 each (Midodrine Hcl [ Midodrine Hcl] 5 Mg) Tab 2 each PO 0800,1300,1900 [facility] Last Admin: 06/27/17 10:13 Dose: 2 each Fluticasone Nasal ([place]) 2 each LISE DAILY [facility] Last Admin: 06/27/17 10:12 Dose: 2 each Polyethylene Glycol (Miralax) 17 gm PO DAILY [facility] Last Admin: 06/27/17 10:12 Dose: Not Given Potassium Chloride (K-Dur) 20 meq PO QID [facility] Last Admin: 06/27/17 10:11 Dose: 20 meq Saccharomyces Boulardii (Florastor) 250 mg PO BIDWM [facility] Last Admin: 06/27/17 10:12 Dose: 250 mg Sertraline HCl (Zoloft) 100 mg PO DAILY [facility] Last Admin: 06/27/17 10:12 Dose: 100 mg Sodium Chloride (Normal Saline Flush 0.9%) 10 ml IVP PRN PRN PRN Reason: NEEDED PER PROVIDER ORDERS Last Admin: 06/26/17 00:40 Dose: 10 ml Sodium Chloride (Normal Saline Flush 0.9%) 10 ml IVP Q8HR [facility] Last Admin: 06/27/17 06:41 Dose: Not Given Ezetimibe/Simvastatin [Vytorin 10-20 mg Tablet] 1 each PO DAILY 10/29/13 Sertraline [Zoloft] 100 mg PO DAILY 10/29/13 Potassium Chloride [K-Dur] 20 meq PO QID 02/22/14 Carbidopa/Levodopa [Rytary ER 23.75 mg-95 mg Cap] 4 cap PO 0800,1300,1900 Donepezil HCl 10 mg PO DAILY 05/31/16 Pantoprazole Sodium [Protonix] 40 mg PO DAILY 05/31/16 Fludrocortisone [Florinef] 0.1 mg PO QPM 12/22/16 Fludrocortisone [Florinef] 0.2 mg PO 0700 12/22/16 Fluticasone Propionate 2 spray LISE DAILY 06/25/17 Naproxen 500 mg PO DAILY PRN 06/25/17 Midodrine HCl 10 mg PO 0800,1300,1900 06/26/17 Objective - Vital Signs/Intake & Output Vital Signs: Vital Signs x48h Temp Pulse Resp BP Pulse Ox 06/27/17 07:45 36.4 C L 69 16 149/69 H 99 Intake & Output: Intake & Output 06/24/17 06/25/17 06/26/17 06/27/17 23:59 23:59 23:59 23:59 Intake Total 640 720 Output Total 2 Balance 638 720 - Objective General Appearance: positive: No acute distress, Alert. negative: Lethargic Eyes Bilateral: positive: Normal inspection, PERRL, EOMI, No lid inflammation, Conjunctivae nml ENT: positive: ENT inspection nml, Pharynx nml, No signs of dehydration. negative: Purulent nasal drainage, Pharyngeal erythema, Oral lesions Neck: positive: Nml inspection, Thyroid nml, Trachea midline. negative: Thyromegaly, Lymphadenopathy (R), Lymphadenopathy (L), Stiff neck, Swelling/ bruising, Tracheal deviation Respiratory: positive: Chest non-tender, No respiratory distress, Breath sounds nml. negative: Wheezes, Rales, Rhonchi Cardiovascular: positive: Regular rate & rhythm, No murmur, No gallop. negative : Tachycardia, Bradycardia, Systolic murmur, Diastolic murmur Peripheral Pulses: 2+ Radial (R), 2+ Radial (L), 2+ Dorsalis pedis (R), 2+ Dorsalis pedis (L) Abdomen: positive: Non-tender, Nml bowel sounds, No distention. negative: Tenderness, Guarding, Rebound Back: positive: Nml inspection. negative: CVA tenderness (R), CVA tenderness (L ) Skin: positive: Color nml, No rash, Warm, Dry. negative: Cyanosis, Diaphoresis , Skin rash Extremities: positive: Non-tender, Full ROM, Nml appearance. negative: Calf tenderness, Venessa's sign/cords Neurologic/Psychiatric: positive: Oriented x3, Sensation nml, Mood/affect nml. negative: Sensory loss, Facial droop, Slurred/abnml speech, Depressed mood/ affect - Lab Results Fish Bones: 06/27/17 08:41 06/27/17 08:41 Other Labs: Lab Results x24hrs 06/27/17 06/27/17 06/27/17 Range/Units 08:41 08:41 08:41 WBC 4.2 L (4.8-10.8) x10^3/uL RBC 3.86 L (4.70-6.10) 10^6/uL Hgb 12.9 L (14.0-18.0) g/dL Hct 37.8 L (42.0-52.0) % MCV 97.9 H (80.0-94.0) fL MCH 33.5 H (27.0-31.0) pg MCHC 34.2 (32.0-36.0) g/dL RDW 14.4 (12.0-15.0) % Plt Count 169 (130-450) 10^3/uL MPV 9.0 (7.4-11.4) fL Neut # 2.7 (1.5-6.6) 10^3/uL Lymph # 0.9 L (1.5-3.5) 10^3/uL [place] # 0.3 (0.0-1.0) 10^3/uL Eos # 0.2 (0.0-0.7) 10^3/uL Baso # 0.0 (0.0-0.1) 10^3/uL Absolute Nucleated RBC 0.00 x10^3/uL Nucleated RBCs 0.1 /100WBC Sodium (135-145) mmol/L Potassium (3.5-5.0) mmol/L Chloride (101-111) mmol/L Carbon Dioxide (21-32) mmol/L Anion Gap (6-13) BUN (6-20) mg/dL Creatinine (0.6-1.2) mg/dL Estimated GFR (MDRD) (>89) Glucose (70-100) mg/dL Calcium (8.5-10.3) mg/dL Total Bilirubin (0.2-1.0) mg/dL AST (10-42) IU/L ALT (10-60) IU/L Alkaline Phosphatase (42-121) IU/L Total Protein (6.7-8.2) g/dL Albumin (3.2-5.5) g/dL Globulin (2.1-4.2) g/dL Albumin/Globulin Ratio (1.0-2.2) Amylase 86 (28-100) U/L Lipase 38 (22-51) U/L 06/27/17 Range/Units 08:41 WBC (4.8-10.8) x10^3/uL RBC (4.70-6.10) 10^6/uL Hgb (14.0-18.0) g/dL Hct (42.0-52.0) % MCV (80.0-94.0) fL MCH (27.0-31.0) pg MCHC (32.0-36.0) g/dL RDW (12.0-15.0) % Plt Count (130-450) 10^3/uL MPV (7.4-11.4) fL Neut # (1.5-6.6) 10^3/uL Lymph # (1.5-3.5) 10^3/uL [place] # (0.0-1.0) 10^3/uL Eos # (0.0-0.7) 10^3/uL Baso # (0.0-0.1) 10^3/uL Absolute Nucleated RBC x10^3/uL Nucleated RBCs /100WBC Sodium 141 (135-145) mmol/L Potassium 2.7 L (3.5-5.0) mmol/L Chloride 107 (101-111) mmol/L Carbon Dioxide 22 (21-32) mmol/L Anion Gap 12.0 (6-13) BUN 10 (6-20) mg/dL Creatinine 0.9 (0.6-1.2) mg/dL Estimated GFR (MDRD) 82 L (>89) Glucose 84 (70-100) mg/dL Calcium 8.7 (8.5-10.3) mg/dL Total Bilirubin 1.2 H (0.2-1.0) mg/dL AST 15 (10-42) IU/L ALT < 10 L (10-60) IU/L Alkaline Phosphatase 59 (42-121) IU/L Total Protein 6.3 L (6.7-8.2) g/dL Albumin 3.8 (3.2-5.5) g/dL Globulin 2.5 (2.1-4.2) g/dL Albumin/Globulin Ratio 1.5 (1.0-2.2) Amylase (28-100) U/L Lipase (22-51) U/L Assessment/Plan - Problem List (1) Diarrhea Impression: (1) Diarrhea Impression: all test and image study reviewed, unremarkable. There is fever, bloody stool reported. pt's diarrhea is great improved after treatment. advance diet if pt can tolerate, closely monitor pt C.Diff test is negative. Pt did not take antibiotics at home meds list. No bloody stool, no abdominal pain or cramp continue to check stool culture and parasite/Ov test add imodium PRN add Florastor continue IVF correct electrolytic, follow blood test (2) Elevated amylase and lipase Impression: resolved pt continue to have diarrhea, although C.Diff test negative. with elevated lipase and amylase, consideration pancreatitis or bile pathway problem as the etiology change diet to clear liquid diet daily check lipase and amylase IVF US of abdomen (3) Moderate dehydration Impression: IVF, lab test (4) Parkinson disease Impression: stable, continue the current treatment resume home medication, neuro check, closely monitor (5) Hypokalemia Impression: today K is 2.5, without any cardiac symptoms EKG PRN still, will add 20 meq IV, pt has 20 meq PO QID. add another IV 20 meq IV, since PO potassium is not well absorbed. today pt's potassium 2.9, pt did not have palpitation, chest pain, or other cardiac issue today resume home Potassium regime, add 2X 10 meq of K recheck CMP. closely monitor with tele, vital (6) Hx of coronary artery disease Impression: stable, closely monitor tele, vital signs stable, closely monitor with tele, vital resume home meds
[2017-06-27] MEDS ORDERED: POTASSIUM CHLOR 10 MEQ/100 ML 100 ML IV SCH (13:00)
[2017-06-27] MEDS: EZETIMIBE PO SCH (21:46)
[2017-06-27] MEDS: CLOPIDOGREL 75 MG TABLET PO SCH (21:46)
[2017-06-27] MEDS: SIMVASTATIN PO SCH (21:46)
[2017-06-27] MEDS: SODIUM CHLORIDE FLUSH 0.9% 10 ML SYRINGE IVP PRN (21:59)
[2017-06-28] MEDS: SODIUM CHLORIDE 0.9% 1,000 ML IV SCH ×4 (04:13→22:56)
[2017-06-28] MEDS: PANTOPRAZOLE 40 MG TABLET PO SCH (06:35)
[2017-06-28 06:44] LABS: BASOPHILS % (AUTO) 1.1 %; EOSINOPHILS # (AUTO) 0.3 10^3/uL (0.0-0.7); EOSINOPHILS % (AUTO) 5.9 %; HCT - HEMATOCRIT 41.1 % (42.0-52.0); HGB - HEMOGLOBIN 13.8 g/dL (14.0-18.0); LYMPHOCYTES # (AUTO) 1.7 10^3/uL (1.5-3.5); LYMPHOCYTES % (AUTO) 37.3 %; MEAN CORPUSCULAR HEMOGLOBIN 33.1 pg (27.0-31.0); MEAN CORPUSCULAR HGB CONC 33.6 g/dL (32.0-36.0); MEAN CORPUSCULAR VOLUME 98.3 fL (80.0-94.0); MEAN PLATELET VOLUME 8.7 fL (7.4-11.4); MONOCYTES # (AUTO) 0.4 10^3/uL (0.0-1.0); MONOCYTES % (AUTO) 9.7 %; NEUTROPHILS # (AUTO) 2.1 10^3/uL (1.5-6.6); NUCLEATED RED BLOOD CELLS AUTO 0.1 /100WBC; RED BLOOD COUNT 4.18 10^6/uL (4.70-6.10); RED CELL DISTRIBUTION WIDTH 14.5 % (12.0-15.0); UNCORRECTED WHITE BLOOD COUNT 4.6 x10^3/uL; WHITE BLOOD COUNT 4.6 x10^3/uL (4.8-10.8)
[2017-06-28 07:01] LABS: ALBUMIN/GLOBULIN RATIO 1.6 (1.0-2.2); BILIRUBIN,TOTAL 1.5 mg/dL (0.2-1.0); BUN - BLOOD UREA NITROGEN 7 mg/dL (6-20); CALCIUM 8.7 mg/dL (8.5-10.3); CARBON DIOXIDE - CO2 29 mmol/L (21-32); CHLORIDE 104 mmol/L (101-111); CREATININE 0.7 mg/dL (0.6-1.2); GFR - MDRD 109 (>89); GLUCOSE 83 mg/dL (70-100); LIPASE 73 U/L (22-51); POTASSIUM 2.7 mmol/L (3.5-5.0); SODIUM 141 mmol/L (135-145); TOTAL PROTEIN 6.5 g/dL (6.7-8.2)
--- NOTE | 2017-06-28 08:39 | PROVIDER PROGRESS NOTE ---
Assessment/Plan - Problem List (1) Urinary retention with incomplete bladder emptying Assessment/Plan: acute on chronic. will get ultrasound to rule out outlet obstruction and for mass. continue to monitor output (2) Parkinson disease Assessment/Plan: chronic. continue with home dosage of levadopa and on fall precautions. physical therapy consult requested. will check B12 and vitamin D level since patient states these have been low in the past and he has not taken any supplements. Low levels can worsen Parkinson disease (3) Hypokalemia Assessment/Plan: acute from diarrhea and loss. improving and will continue to give IV supplements of potassium chloride since oral is not helping and patient is not absorbing the oral. will monitor levels with daily labs (4) Low serum magnesium level Assessment/Plan: acute and improving. continue to monitor magnesium levels and replace with magnesium sulfate IV and repeat levels with daily lab draws. - Current Meds Current Meds: Current Medications Generic Name Dose Route Start Last Admin Trade Name Freq PRN Reason Stop Dose Admin Clopidogrel Bisulfate 75 mg 06/26/17 21:00 06/27/17 21:46 Plavix PO 75 mg QPM [facility] Administration Donepezil HCl 10 mg 06/26/17 09:00 06/27/17 10:12 Aricept PO 10 mg DAILY [facility] Administration Fludrocortisone Acetate 0.1 mg 06/26/17 19:00 06/27/17 19:37 Florinef PO 0.1 mg 1900 [facility] Administration Fludrocortisone Acetate 0.2 mg 06/27/17 08:00 06/27/17 10:11 Florinef PO 0.2 mg 0800 [facility] Administration Sodium Chloride 1,000 mls @ 100 mls/hr 06/25/17 23:00 06/28/17 04:13 Normal Saline 0.9% IV 100 mls/hr .Q10H [facility] Administration Loperamide HCl 2 mg 06/26/17 10:01 06/26/17 20:10 Imodium PO 2 mg QID PRN Administration Diarrhea Pantoprazole Sodium 40 mg 06/26/17 07:00 06/28/17 06:35 Protonix PO 40 mg QDAC [facility] Administration Carbidopa/Levodopa [ 4 each 06/26/17 08:00 06/27/17 19:39 Rytary Er 23.75 Mg- PO 4 each 95 Mg Cap] 0800,1300,1900 [facility] Administration (Ezetimibe/ 1 each 06/26/17 21:00 06/27/17 21:46 Simvastatin [Vytorin PO 1 each 10-20 Mg Tablet]) QPM [facility] Administration (Midodrine Hcl [ 2 each 06/26/17 08:00 06/27/17 19:37 Midodrine Hcl] 5 Mg) PO 2 each Tab 0800,1300,1900 [facility] Administration Fluticasone Nasal 2 each 06/26/17 09:00 06/27/17 10:12 [place] LISE 2 each DAILY [facility] Administration Polyethylene Glycol 17 gm 06/26/17 09:00 06/27/17 10:12 Miralax PO Not Given DAILY [facility] Potassium Chloride 20 meq 06/26/17 09:00 06/27/17 21:50 K-Dur PO 20 meq QID [facility] Administration Saccharomyces Boulardii 250 mg 06/26/17 10:00 06/27/17 18:00 Florastor PO 250 mg BIDWM [facility] Administration Sertraline HCl 100 mg 06/26/17 09:00 06/27/17 10:12 Zoloft PO 100 mg DAILY [facility] Administration Sodium Chloride 10 ml 06/25/17 22:13 06/27/17 21:59 Normal Saline Flush 0.9% IVP 10 ml PRN PRN Administration NEEDED PER PROVIDER ORDERS Sodium Chloride 10 ml 06/26/17 06:00 06/27/17 21:45 Normal Saline Flush 0.9% IVP Not Given Q8HR [facility] - Lab Result Lab results reviewed: Yes Fish Bone Diagrams: 06/29/17 06:20 06/29/17 06:20 Other Lab Results: Abnormal Lab Results 06/26/17 06/27/17 06/27/17 07:36 08:41 08:41 WBC 4.2 x10^3/uL L x10^3/uL (4.8-10.8) RBC 3.86 10^6/uL L 10^6/uL (4.70-6.10) Hgb 12.9 g/dL L g/dL (14.0-18.0) Hct 37.8 % L % (42.0-52.0) MCV 97.9 fL H fL (80.0-94.0) MCH 33.5 pg H pg (27.0-31.0) Lymph # 0.9 10^3/uL L 10^3/uL (1.5-3.5) Potassium 2.7 mmol/L L mmol/L (3.5-5.0) Estimated GFR (MDRD) 82 L (>89) Total Bilirubin 1.2 mg/dL H mg/dL (0.2-1.0) ALT < 10 IU/L L IU/L (10-60) Total Protein 6.3 g/dL L g/dL (6.7-8.2) Amylase 164 U/L H U/L (28-100) Lipase 143 U/L H U/L (22-51) 06/28/17 06/28/17 06:37 06:37 WBC 4.6 x10^3/uL L x10^3/uL (4.8-10.8) RBC 4.18 10^6/uL L 10^6/uL (4.70-6.10) Hgb 13.8 g/dL L g/dL (14.0-18.0) Hct 41.1 % L % (42.0-52.0) MCV 98.3 fL H fL (80.0-94.0) MCH 33.1 pg H pg (27.0-31.0) Lymph # Potassium 2.7 mmol/L L mmol/L (3.5-5.0) Estimated GFR (MDRD) Total Bilirubin 1.5 mg/dL H mg/dL (0.2-1.0) ALT < 10 IU/L L IU/L (10-60) Total Protein 6.5 g/dL L g/dL (6.7-8.2) Amylase Lipase 73 U/L H U/L (22-51) - EKG Results EKG Interpreted Independently: No - Diagnostic Imaging Results Diagnostic Imaging Results: Prelim report reviewed Diagnostic Imaging Results Comments: Pending ultrasound for bladder and prostate with possible mets or abnormality - Additional Planning Condition/Complexity: Stable (Patient will need an additional 24-48 hours since he still has electrolyte imbalance and not improving with oral medications. will require IV medications with high risk for toxicity and additional diagnostics to find cause.) My Orders: My Active Orders 06/28/17 08:38 MAGNESIUM [CHEM] Stat Consult/Specialty: OT, PT Plan Discussed with:: Patient, Family Time Spent: 31-60 minutes Subjective - Subjective Patient Reports: Resting Comfortably, Diarrhea, Pain (to left lower quadrant) Nursing Reports: Other (continues with gas and bloating with diarrhea last evening once started on BRAT diet.) Objective Vital Signs: Vital Signs - 24 hr 06/27/17 06/27/17 06/28/17 15:49 22:52 01:01 Temperature 36.3 C L 36.5 C Heart Rate [ 60 55 L Brachial] Respiratory 20 16 Rate Blood Pressure [Left Brachial artery] Blood Pressure 165/72 H 190/75 H 172/73 H [Right Brachial artery] O2 Saturation 100 99 06/28/17 06/28/17 07:05 08:09 Temperature 36.5 C Heart Rate [ 78 Brachial] Respiratory 16 Rate Blood Pressure 171/55 H 160/98 H [Left Brachial artery] Blood Pressure [Right Brachial artery] O2 Saturation 99 Oxygen O2 Source Room air I&O (Last 24 Hrs): Intake and Output Totals x24h 06/26/17 06/27/17 06/28/17 23:59 23:59 23:59 Intake Total 640 4219 864 Output Total 2 Balance 638 4219 864 General: Alert, Oriented x3, Cooperative HEENT: Atraumatic, PERRLA, EOMI Neck: Supple, No JVD, No thyromegaly Lymphatic: no adenopathy Neuro: Alert, CN 2-12 Grossly Intact, Oriented Times 3 Cardiovascular: Regular rate, Normal S1, Normal S2, No murmurs Respiratory: Chest non-tender, No respiratory distress, Breath sounds nml Abdomen: Soft, No hepatospenomegaly (has pain with palpation to left lower quadrant) Genitourinary: No Mass Rectal: Non-Tender Extremities: No clubbing, No cyanosis, No edema, Normal pulses, No tenderness/ swelling Skin: No rashes, No breakdown, No significant lesion Comments/Notes: significant echymosis to upper left and right extremities from falls - Results Results: Laboratory Results WBC 4.6 x10^3/uL (4.8-10.8) L 06/28/17 06:37 RBC 4.18 10^6/uL (4.70-6.10) L 06/28/17 06:37 Hgb 13.8 g/dL (14.0-18.0) L 06/28/17 06:37 Hct 41.1 % (42.0-52.0) L 06/28/17 06:37 MCV 98.3 fL (80.0-94.0) H 06/28/17 06:37 MCH 33.1 pg (27.0-31.0) H 06/28/17 06:37 MCHC 33.6 g/dL (32.0-36.0) 06/28/17 06:37 RDW 14.5 % (12.0-15.0) 06/28/17 06:37 Plt Count 175 10^3/uL (130-450) 06/28/17 06:37 MPV 8.7 fL (7.4-11.4) 06/28/17 06:37 Neut # 2.1 10^3/uL (1.5-6.6) 06/28/17 06:37 Lymph # 1.7 10^3/uL (1.5-3.5) 06/28/17 06:37 [place] # 0.4 10^3/uL (0.0-1.0) 06/28/17 06:37 Eos # 0.3 10^3/uL (0.0-0.7) 06/28/17 06:37 Baso # 0.0 10^3/uL (0.0-0.1) 06/28/17 06:37 Absolute Nucleated RBC 0.00 x10^3/uL 06/28/17 06:37 Nucleated RBCs 0.1 /100WBC 06/28/17 06:37 Sodium 141 mmol/L (135-145) 06/28/17 06:37 Potassium 2.7 mmol/L (3.5-5.0) L 06/28/17 06:37 Chloride 104 mmol/L (101-111) 06/28/17 06:37 Carbon Dioxide 29 mmol/L (21-32) 06/28/17 06:37 Anion Gap 8.0 (6-13) 06/28/17 06:37 BUN 7 mg/dL (6-20) 06/28/17 06:37 Creatinine 0.7 mg/dL (0.6-1.2) 06/28/17 06:37 Estimated GFR (MDRD) 109 (>89) 06/28/17 06:37 Glucose 83 mg/dL (70-100) 06/28/17 06:37 Lactic Acid 1.1 mmol/L (0.5-2.2) 06/25/17 19:43 Calcium 8.7 mg/dL (8.5-10.3) 06/28/17 06:37 Magnesium 1.6 mg/dL (1.7-2.8) L 06/25/17 19:43 Total Bilirubin 1.5 mg/dL (0.2-1.0) H 06/28/17 06:37 AST 18 IU/L (10-42) 06/28/17 06:37 ALT < 10 IU/L (10-60) L 06/28/17 06:37 Alkaline Phosphatase 67 IU/L (42-121) 06/28/17 06:37 Troponin I < 0.04 ng/mL (<0.49) 06/25/17 19:43 Total Protein 6.5 g/dL (6.7-8.2) L 06/28/17 06:37 Albumin 4.0 g/dL (3.2-5.5) 06/28/17 06:37 Globulin 2.5 g/dL (2.1-4.2) 06/28/17 06:37 Albumin/Globulin Ratio 1.6 (1.0-2.2) 06/28/17 06:37 Amylase 86 U/L (28-100) 06/27/17 08:41 Lipase 73 U/L (22-51) H 06/28/17 06:37 Urine Color YELLOW 06/26/17 14:29 Urine Clarity CLEAR (CLEAR) 06/26/17 14:29 Urine pH 6.0 PH (5.0-7.5) 06/26/17 14:29 Ur Specific [place] 1.020 (1.002-1.030) 06/26/17 14:29 Urine Protein NEGATIVE mg/dL (NEGATIVE) 06/26/17 14:29 Urine Glucose (UA) NEGATIVE mg/dL (NEGATIVE) 06/26/17 14:29 Urine Ketones NEGATIVE mg/dL (NEGATIVE) 06/26/17 14:29 Urine Occult Blood NEGATIVE (NEGATIVE) 06/26/17 14:29 Urine Nitrite NEGATIVE (NEGATIVE) 06/26/17 14:29 Urine Bilirubin NEGATIVE (NEGATIVE) 06/26/17 14:29 Urine Urobilinogen 0.2 (NORMAL) E.U./dL (NORMAL) 06/26/17 14:29 Ur Leukocyte Esterase NEGATIVE (NEGATIVE) 06/26/17 14:29 Ur Microscopic Review NOT INDICATED 06/26/17 05:50 Urine Culture Comments NOT INDICATED 06/26/17 05:50 Stool Leukocytes, Qual POSITIVE (Negative) 06/26/17 05:50 - Procedures Procedures: Procedures EXCISE CORD/EPID LES NEC (02/22/14) LAPAROSCOP APPENDECTOMY (10/29/13) OTH & OPEN REPAIR INDIRECT INGUINAL HERNIA W GRFT OR PROSTH (02/22/14)
[2017-06-28] MEDS: DONEPEZIL 5 MG TABLET PO SCH (09:22)
[2017-06-28] MEDS: SACCHAROMYCES BOULARDII 250 MG CAPSULE PO SCH ×3 (09:22→18:52)
[2017-06-28] MEDS: SERTRALINE 50 MG TABLET PO SCH (09:22)
[2017-06-28] MEDS: POTASSIUM CHLORIDE 20 MEQ TABLET PO SCH ×4 (09:22→20:51)
[2017-06-28] MEDS: SODIUM CHLORIDE FLUSH 0.9% 10 ML SYRINGE IVP SCH ×3 (09:22→19:02)
[2017-06-28] MEDS: POLYETHYLENE GLYCOL 3350 17 GM PACKET PO SCH (09:23)
[2017-06-28] MEDS: FLUTICASONE NASAL SPRAY NAS SCH ×3 (09:23)
[2017-06-28] MEDS: MIDODRINE HCL 5 MG PO SCH ×3 (09:23→18:53)
[2017-06-28] MEDS: FLUDROCORTISONE 0.1 MG TABLET PO SCH ×2 (09:23→18:52)
[2017-06-28] MEDS: Carbidopa/Levodopa [Rytary Er 23.75 Mg-95 Mg Cap] PO SCH ×3 (09:24→18:53)
[2017-06-28] MEDS ORDERED: MAGNESIUM SULFATE 2 GRAM 50 ML IV ONE (11:45)
[2017-06-28] MEDS ORDERED: THIAMINE INJ 100 MG, FOLIC ACID INJ 1 MG in SODIUM CHLORIDE 0.9% 100ML 100 ML IV SCH (12:00)
[2017-06-28 13:49] LABS: THYROID STIMULATING HORMONE 1.63 uIU/mL (0.34-5.60)
[2017-06-28 13:59] LABS: PHOSPHORUS 2.9 mg/dL (2.5-4.6)
[2017-06-28] MEDS ORDERED: POTASSIUM CHLORIDE INJ 40 MEQ in SODIUM CHLORIDE 0.9% 480 ML IV ONE (14:51)
[2017-06-28] MEDS: SODIUM CHLORIDE FLUSH 0.9% 10 ML SYRINGE IVP PRN ×2 (19:02→19:03)
[2017-06-28] MEDS: SIMVASTATIN PO SCH (20:50)
[2017-06-28] MEDS: EZETIMIBE PO SCH (20:50)
[2017-06-28] MEDS: CLOPIDOGREL 75 MG TABLET PO SCH (20:51)
--- NOTE | 2017-06-29 00:39 | Ultrasound Preliminary Report ---
Exam: US Pelvic - Male Impression: No sonographic evidence of bladder mass. [facility] SITE ID: [id number]
--- NOTE | 2017-06-29 00:41 | Ultrasound Report ---
EXAM: ULTRASOUND PELVIS MALE EXAM DATE: 06/28/2017 09:56 PM. CLINICAL HISTORY: Possible enlarged prostate with hx of seeds and CA. COMPARISON: None. TECHNIQUE: Real time tang scale sonographic evaluation performed. Static images obtained and reviewed . FINDINGS: 06/26/2017 CT IMPRESSION: The bladder is partially distended. Mild circumferential bladder wall thickening likely secondary to chronic outlet obstruction. There is no evidence of bladder mass. No stones. Prevoid bladder volume 3 11 cc, postvoid 26.9 cc. The prostate gland measures 3.6 x 2.2 x 3.6 cm and demonstrates several hyperechoic foci compatible w ith known seed implants. Impression: No sonographic evidence of bladder mass. [facility] Referring Provider Line: [phone] SITE ID: [id number]
[2017-06-29] MEDS: SODIUM CHLORIDE 0.9% 1,000 ML IV SCH ×3 (05:42→17:15)
[2017-06-29] MEDS: SODIUM CHLORIDE FLUSH 0.9% 10 ML SYRINGE IVP SCH ×5 (06:04→21:18)
[2017-06-29 06:41] LABS: ALBUMIN/GLOBULIN RATIO 1.4 (1.0-2.2); BILIRUBIN,TOTAL 1.3 mg/dL (0.2-1.0); BUN - BLOOD UREA NITROGEN 6 mg/dL (6-20); CALCIUM 8.7 mg/dL (8.5-10.3); CARBON DIOXIDE - CO2 30 mmol/L (21-32); CHLORIDE 105 mmol/L (101-111); CREATININE 0.8 mg/dL (0.6-1.2); GFR - MDRD 93 (>89); GLUCOSE 90 mg/dL (70-100); LIPASE 43 U/L (22-51); POTASSIUM 2.7 mmol/L (3.5-5.0); SODIUM 143 mmol/L (135-145); TOTAL PROTEIN 6.8 g/dL (6.7-8.2)
[2017-06-29 06:47] LABS: BASOPHILS # (AUTO) 0.1 10^3/uL (0.0-0.1); BASOPHILS % (AUTO) 1.2 %; EOSINOPHILS # (AUTO) 0.3 10^3/uL (0.0-0.7); EOSINOPHILS % (AUTO) 6.3 %; HCT - HEMATOCRIT 41.7 % (42.0-52.0); LYMPHOCYTES # (AUTO) 2.2 10^3/uL (1.5-3.5); LYMPHOCYTES % (AUTO) 44.2 %; MEAN CORPUSCULAR HEMOGLOBIN 33.2 pg (27.0-31.0); MEAN CORPUSCULAR HGB CONC 33.4 g/dL (32.0-36.0); MEAN CORPUSCULAR VOLUME 99.4 fL (80.0-94.0); MEAN PLATELET VOLUME 9.2 fL (7.4-11.4); MONOCYTES # (AUTO) 0.5 10^3/uL (0.0-1.0); MONOCYTES % (AUTO) 9.2 %; NEUTROPHILS % (AUTO) 39.1 %; NUCLEATED RED BLOOD CELLS AUTO 0.1 /100WBC
--- NOTE | 2017-06-29 07:32 | PROVIDER PROGRESS NOTE ---
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 this appears to be more of a malabsorption problem. stool testing for other diagnosis including celiac and IGG. IVF have been given and now at O since patient is tolerating diet. stool is negative for bleeding. this is improving and patient has not had a bowel movement today. He has no abdominal cramping. he is tolerating a gluten free diet. continue on probiotics. hold immodium. hold all stool softeners (2) Parkinson disease Assessment/Plan: chronic and stable. continue with medications from home for Parkinsons. fall precautions. physical therapy to see patient and help with assist and establish baseline to go home. he is on levadopa daily. fall precautions. (3) Urinary retention with incomplete bladder emptying Assessment/Plan: chronic and ongoing. patient has bladder wall thickening and his PSA was checked and found to be elevated despite seeding 10 years ago. He will need to followup with urology outpatient. will continue to monitor output daily and kidney function with daily labs. he is on modrin daily home medication (4) Hypokalemia Assessment/Plan: ongoing and acute. with probably malabsorption. patient has received both oral and IV and still have low potassium. This is likely due to malabsorption and requires IV instead of oral. Will continue with IV and recheck level in morning. will also check home medications for possible side effects of hypokalemia (5) Low serum magnesium level Assessment/Plan: acute and ongoing. continue to monitor levels daily and replace with IV daily. daily lab draws for levels. 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 patient is on fioricef. He is on higher dosage. continue and monitor blood pressures and place on fall precautions and walking with assist. - Current Meds Current Meds: Current Medications Generic Name Dose Route Start Last Admin Trade Name Zakq PRN Reason Stop Dose Admin Clopidogrel Bisulfate 75 mg 06/26/17 21:00 06/28/17 20:51 Plavix PO 75 mg QPM BREN Administration Donepezil HCl 10 mg 06/26/17 09:00 06/28/17 09:22 Aricept PO 10 mg DAILY BREN Administration Fludrocortisone Acetate 0.1 mg 06/26/17 19:00 06/28/17 18:52 Florinef PO 0.1 mg 1900 BREN Administration Fludrocortisone Acetate 0.2 mg 06/27/17 08:00 06/28/17 09:23 Florinef PO 0.2 mg 0800 BREN Administration Sodium Chloride 1,000 mls @ 100 mls/hr 06/25/17 23:00 06/29/17 05:42 Normal Saline 0.9% IV Not Given .Q10H BREN Carbidopa/Levodopa [ 4 each 06/26/17 08:00 06/28/17 18:53 Rytary Er 23.75 Mg- PO 4 each 95 Mg Cap] 0800,1300,1900 BREN Administration (Ezetimibe/ 1 each 06/26/17 21:00 06/28/17 20:50 Simvastatin [Vytorin PO 1 each 10-20 Mg Tablet]) QPM BREN Administration (Midodrine Hcl [ 2 each 06/26/17 08:00 06/28/17 18:53 Midodrine Hcl] 5 Mg) PO 2 each Tab 0800,1300,1900 BREN Administration Fluticasone Nasal 2 each 06/26/17 09:00 06/28/17 09:23 [place] LISE 2 each DAILY BREN Administration Polyethylene Glycol 17 gm 06/26/17 09:00 06/28/17 09:23 Miralax PO Not Given DAILY BREN Potassium Chloride 20 meq 06/26/17 09:00 06/28/17 20:51 K-Dur PO 20 meq QID BREN Administration Saccharomyces Boulardii 500 mg 06/28/17 13:00 06/28/17 18:52 Florastor PO 500 mg BIDWM BREN Administration Sertraline HCl 100 mg 06/26/17 09:00 06/28/17 09:22 Zoloft PO 100 mg DAILY BREN Administration Sodium Chloride 10 ml 06/25/17 22:13 06/28/17 19:03 Normal Saline Flush 0.9% IVP 10 ml PRN PRN Administration NEEDED PER PROVIDER ORDERS Sodium Chloride 10 ml 06/26/17 06:00 06/29/17 06:04 Normal Saline Flush 0.9% IVP Not Given Q8HR BREN - Lab Result Lab results reviewed: Yes Fish Bone Diagrams: 07/01/17 05:07 07/01/17 05:07 Other Lab Results: Abnormal Lab Results 06/27/17 06/27/17 06/28/17 08:41 08:41 06:37 WBC 4.2 x10^3/uL L x10^3/uL 4.6 x10^3/uL L x10^3/uL (4.8-10.8) (4.8-10.8) RBC 3.86 10^6/uL L 10^6/uL 4.18 10^6/uL L 10^6/uL (4.70-6.10) (4.70-6.10) Hgb 12.9 g/dL L g/dL 13.8 g/dL L g/dL (14.0-18.0) (14.0-18.0) Hct 37.8 % L % 41.1 % L % (42.0-52.0) (42.0-52.0) MCV 97.9 fL H fL 98.3 fL H fL (80.0-94.0) (80.0-94.0) MCH 33.5 pg H pg 33.1 pg H pg (27.0-31.0) (27.0-31.0) Lymph # 0.9 10^3/uL L 10^3/uL (1.5-3.5) Potassium 2.7 mmol/L L mmol/L (3.5-5.0) Estimated GFR (MDRD) 82 L (>89) Magnesium Total Bilirubin 1.2 mg/dL H mg/dL (0.2-1.0) ALT < 10 IU/L L IU/L (10-60) Total Protein 6.3 g/dL L g/dL (6.7-8.2) Lipase 06/28/17 06/28/17 06/29/17 06:37 09:05 06:20 WBC RBC 4.20 10^6/uL L 10^6/uL (4.70-6.10) Hgb Hct 41.7 % L % (42.0-52.0) MCV 99.4 fL H fL (80.0-94.0) MCH 33.2 pg H pg (27.0-31.0) Lymph # Potassium 2.7 mmol/L L mmol/L (3.5-5.0) Estimated GFR (MDRD) Magnesium 1.5 mg/dL L mg/dL (1.7-2.8) Total Bilirubin 1.5 mg/dL H mg/dL (0.2-1.0) ALT < 10 IU/L L IU/L (10-60) Total Protein 6.5 g/dL L g/dL (6.7-8.2) Lipase 73 U/L H U/L (22-51) 06/29/17 06:20 WBC RBC Hgb Hct MCV MCH Lymph # Potassium 2.7 mmol/L L mmol/L (3.5-5.0) Estimated GFR (MDRD) Magnesium Total Bilirubin 1.3 mg/dL H mg/dL (0.2-1.0) ALT < 10 IU/L L IU/L (10-60) Total Protein Lipase - EKG Results EKG Interpreted Independently: No - Diagnostic Imaging Results Diagnostic Imaging Results: Final report reviewed Diagnostic Imaging Results Comments: ultrasound showed no bladder mass but thickening of the lining with chronic outlet obstruction - Additional Planning Condition/Complexity: Stable (Patient will need another 24-48 hours stay since he is still receiving IV medications with high risk for toxicity and additional consults and diagnostics needed.) My Orders: My Active Orders 06/28/17 13:00 Saccharomyces Boulardii [Florastor] 500 mg PO BIDWM 06/28/17 16:31 VITAMIN D,D2,D3 PANEL [REFLAB] Stat 06/28/17 Lunch Gluten Free Diet [DIET] 06/29/17 06:20 FERRITIN [IAI] Routine HEPATITIS ACUTE PANEL W CONF [REFLAB] Routine IRON TIBC PANEL [CHEM] Routine IRON [CHEM] Routine LDH - LACTATE DEHYDROGENASE [CHEM] Routine RETIC [HEME] Routine VITAMIN B12 [IAI] Routine 06/29/17 07:19 PT WITH INR [COAG] Routine 06/29/17 08:00 Magnesium Sulfate 2 Gram [Magnesium Sulfate] 50 ml IV ONCE Potassium Chloride Inj 40 meq Sodium Chloride 0.9% [Normal Saline 0.9%] 480 ml IV ONCE 06/29/17 09:00 Multivitamin [Infuvite] 10 ml Sodium Chloride 0.9% [Normal Saline 0.9%] 1,000 ml IV DAILY Thiamine Inj [Vitamin B-1 Inj] 100 mg Folic Acid Inj 1 mg Sodium Chloride 0.9 % 100Ml [Normal Saline 0.9% 100Ml] 100 ml IM DAILY 06/30/17 05:00 CBC - COMP BLD CT W/AUTO DIFF [HEME] DAILYLAB CMP [COMPREHENSIVE METABOLIC PANEL] [CHEM] DAILYLAB MAGNESIUM [CHEM] DAILYLAB Consult/Specialty: OT, PT Plan Discussed with:: Patient, Spouse Time Spent: 31-60 minutes (patient is still hypokalemic and still receiving IV electrolytes and will require another 24-48 hours before discharge. He would like to go home and not to rehab for deconditioning.) Subjective - Subjective Patient Reports: Feeling Better, Resting Comfortably, No Complaints Nursing Reports: No Complaints (no diarrhea and patient is feeling better today. he is ambulating with assist with nursing and physical therapy) Objective Vital Signs: Vital Signs - 24 hr 06/28/17 06/28/17 06/28/17 08:09 15:43 16:30 Temperature 36.5 C 36.5 C Heart Rate [ 53 L Activity] Heart Rate [ 78 55 L Brachial] Heart Rate [ 50 L Supine] Respiratory 16 18 Rate Blood Pressure 185/82 H [Activity] Blood Pressure 160/98 H 165/66 H [Left Brachial artery] Blood Pressure 165/66 H [Supine] O2 Saturation 99 100 06/29/17 00:11 Temperature 36.5 C Heart Rate [ Activity] Heart Rate [ 59 L Brachial] Heart Rate [ Supine] Respiratory 20 Rate Blood Pressure [Activity] Blood Pressure 176/74 H [Left Brachial artery] Blood Pressure [Supine] O2 Saturation 99 Oxygen O2 Source Room air I&O (Last 24 Hrs): Intake and Output Totals x24h 06/27/17 06/28/17 06/29/17 23:59 23:59 23:59 Intake Total 4219 3770 713 Balance 4219 3770 713 General: Alert, Oriented x3, Cooperative HEENT: Atraumatic, PERRLA, EOMI Neck: Supple, No JVD, No thyromegaly Lymphatic: no adenopathy Neuro: Alert, CN 2-12 Grossly Intact, Oriented Times 3 Cardiovascular: Regular rate, Normal S1, Normal S2, No murmurs Respiratory: Chest non-tender, No respiratory distress, Breath sounds nml Abdomen: Normal bowel sounds, No tenderness, No masses Genitourinary: Normal Inspection Extremities: No clubbing, No cyanosis, Normal pulses Skin: No rashes, No breakdown, No significant lesion - Results Results: Laboratory Results WBC 5.0 x10^3/uL (4.8-10.8) 06/29/17 06:20 RBC 4.20 10^6/uL (4.70-6.10) L 06/29/17 06:20 Hgb 14.0 g/dL (14.0-18.0) 06/29/17 06:20 Hct 41.7 % (42.0-52.0) L 06/29/17 06:20 MCV 99.4 fL (80.0-94.0) H 06/29/17 06:20 MCH 33.2 pg (27.0-31.0) H 06/29/17 06:20 MCHC 33.4 g/dL (32.0-36.0) 06/29/17 06:20 RDW 15.0 % (12.0-15.0) 06/29/17 06:20 Plt Count 172 10^3/uL (130-450) 06/29/17 06:20 MPV 9.2 fL (7.4-11.4) 06/29/17 06:20 Neut # 2.0 10^3/uL (1.5-6.6) 06/29/17 06:20 Lymph # 2.2 10^3/uL (1.5-3.5) 06/29/17 06:20 [place] # 0.5 10^3/uL (0.0-1.0) 06/29/17 06:20 Eos # 0.3 10^3/uL (0.0-0.7) 06/29/17 06:20 Baso # 0.1 10^3/uL (0.0-0.1) 06/29/17 06:20 Absolute Nucleated RBC 0.01 x10^3/uL 06/29/17 06:20 Nucleated RBCs 0.1 /100WBC 06/29/17 06:20 Sodium 143 mmol/L (135-145) 06/29/17 06:20 Potassium 2.7 mmol/L (3.5-5.0) L 06/29/17 06:20 Chloride 105 mmol/L (101-111) 06/29/17 06:20 Carbon Dioxide 30 mmol/L (21-32) 06/29/17 06:20 Anion Gap 8.0 (6-13) 06/29/17 06:20 BUN 6 mg/dL (6-20) 06/29/17 06:20 Creatinine 0.8 mg/dL (0.6-1.2) 06/29/17 06:20 Estimated GFR (MDRD) 93 (>89) 06/29/17 06:20 Glucose 90 mg/dL (70-100) 06/29/17 06:20 Lactic Acid 1.1 mmol/L (0.5-2.2) 06/25/17 19:43 Calcium 8.7 mg/dL (8.5-10.3) 06/29/17 06:20 Phosphorus 2.9 mg/dL (2.5-4.6) 06/28/17 09:03 Magnesium 1.5 mg/dL (1.7-2.8) L 06/28/17 09:05 Total Bilirubin 1.3 mg/dL (0.2-1.0) H 06/29/17 06:20 GGT 17 IU/L (8-55) 06/28/17 09:03 AST 17 IU/L (10-42) 06/29/17 06:20 ALT < 10 IU/L (10-60) L 06/29/17 06:20 Alkaline Phosphatase 66 IU/L (42-121) 06/29/17 06:20 Troponin I < 0.04 ng/mL (<0.49) 06/25/17 19:43 C-Reactive Protein < 1.0 mg/dL (0-1.0) 06/28/17 09:03 Total Protein 6.8 g/dL (6.7-8.2) 06/29/17 06:20 Albumin 4.0 g/dL (3.2-5.5) 06/29/17 06:20 Globulin 2.8 g/dL (2.1-4.2) 06/29/17 06:20 Albumin/Globulin Ratio 1.4 (1.0-2.2) 06/29/17 06:20 Amylase 86 U/L (28-100) 06/27/17 08:41 Lipase 43 U/L (22-51) 06/29/17 06:20 TSH 1.63 uIU/mL (0.34-5.60) 06/28/17 09:03 Free T4 1.18 ng/dL (0.58-1.64) 06/28/17 09:03 Urine Color YELLOW 06/26/17 14:29 Urine Clarity CLEAR (CLEAR) 06/26/17 14:29 Urine pH 6.0 PH (5.0-7.5) 06/26/17 14:29 Ur Specific [place] 1.020 (1.002-1.030) 06/26/17 14:29 Urine Protein NEGATIVE mg/dL (NEGATIVE) 06/26/17 14:29 Urine Glucose (UA) NEGATIVE mg/dL (NEGATIVE) 06/26/17 14:29 Urine Ketones NEGATIVE mg/dL (NEGATIVE) 06/26/17 14:29 Urine Occult Blood NEGATIVE (NEGATIVE) 06/26/17 14:29 Urine Nitrite NEGATIVE (NEGATIVE) 06/26/17 14:29 Urine Bilirubin NEGATIVE (NEGATIVE) 06/26/17 14:29 Urine Urobilinogen 0.2 (NORMAL) E.U./dL (NORMAL) 06/26/17 14:29 Ur Leukocyte Esterase NEGATIVE (NEGATIVE) 06/26/17 14:29 Ur Microscopic Review NOT INDICATED 06/26/17 05:50 Urine Culture Comments NOT INDICATED 06/26/17 05:50 Stool Leukocytes, Qual POSITIVE (Negative) 06/26/17 05:50 - Procedures Procedures: Procedures EXCISE CORD/EPID LES NEC (02/22/14) LAPAROSCOP APPENDECTOMY (10/29/13) OTH & OPEN REPAIR INDIRECT INGUINAL HERNIA W GRFT OR PROSTH (02/22/14)
[2017-06-29 07:38] LABS: IMMATURE RETIC FRACTION 0.38; RED BLOOD COUNT 4.18 10^6/uL (4.70-6.10)
[2017-06-29 08:00] LABS: IRON 97 ug/dL (45-182); TOTAL IRON BINDING CAPACITY 311 ug/dL (250-450); TRANSFERRIN 222 mg/dL (180-329)
[2017-06-29] MEDS ORDERED: MAGNESIUM SULFATE 2 GRAM 50 ML IV SCH (08:00)
[2017-06-29] MEDS ORDERED: POTASSIUM CHLORIDE INJ 40 MEQ in SODIUM CHLORIDE 0.9% 480 ML IV SCH (08:00)
[2017-06-29 08:03] LABS: FERRITIN 173.5 ng/mL (23.9-336.2)
[2017-06-29] MEDS: MIDODRINE HCL 5 MG PO SCH ×3 (08:05→19:01)
[2017-06-29] MEDS: Carbidopa/Levodopa [Rytary Er 23.75 Mg-95 Mg Cap] PO SCH ×3 (08:05→19:01)
[2017-06-29] MEDS: FLUDROCORTISONE 0.1 MG TABLET PO SCH ×2 (08:15→18:59)
[2017-06-29] MEDS: SACCHAROMYCES BOULARDII 250 MG CAPSULE PO SCH ×2 (08:16→16:18)
[2017-06-29] MEDS: POTASSIUM CHLORIDE 20 MEQ TABLET PO SCH ×4 (08:16→20:41)
[2017-06-29] MEDS: DONEPEZIL 5 MG TABLET PO SCH (08:16)
[2017-06-29] MEDS: FLUTICASONE NASAL SPRAY NAS SCH ×3 (08:17)
[2017-06-29] MEDS: SERTRALINE 50 MG TABLET PO SCH (08:17)
[2017-06-29] MEDS: MULTIVITAMIN 10 ML in SODIUM CHLORIDE 0.9% 1,000 ML IV SCH (09:24)
[2017-06-29] MEDS: THIAMINE INJ 100 MG, FOLIC ACID INJ 1 MG in SODIUM CHLORIDE 0.9% 100ML 100 ML IM SCH (09:25)
[2017-06-29] MEDS ORDERED: CYANOCOBALAMIN 1,000 MCG/ML VIAL IM SCH (11:00)
[2017-06-29] MEDS ORDERED: POTASSIUM CHLORIDE INJ 40 MEQ in SODIUM CHLORIDE 0.9% 480 ML IV ONE (15:53)
[2017-06-29] MEDS: SIMVASTATIN PO SCH (20:34)
[2017-06-29] MEDS: EZETIMIBE PO SCH (20:34)
[2017-06-29] MEDS: CHOLECALCIFEROL 5,000 UNIT CAPSULE PO SCH (20:41)
[2017-06-29] MEDS: CLOPIDOGREL 75 MG TABLET PO SCH (20:41)
[2017-06-30] MEDS: ZOLPIDEM 5 MG TABLET PO PRN (03:51)
[2017-06-30 05:57] LABS: BASOPHILS % (AUTO) 0.6 %; EOSINOPHILS # (AUTO) 0.3 10^3/uL (0.0-0.7); EOSINOPHILS % (AUTO) 6.4 %; HGB - HEMOGLOBIN 12.5 g/dL (14.0-18.0); LYMPHOCYTES % (AUTO) 39.9 %; MEAN CORPUSCULAR HEMOGLOBIN 33.4 pg (27.0-31.0); MEAN CORPUSCULAR HGB CONC 33.7 g/dL (32.0-36.0); MEAN CORPUSCULAR VOLUME 99.2 fL (80.0-94.0); MEAN PLATELET VOLUME 9.2 fL (7.4-11.4); MONOCYTES # (AUTO) 0.4 10^3/uL (0.0-1.0); MONOCYTES % (AUTO) 8.7 %; NEUTROPHILS # (AUTO) 2.2 10^3/uL (1.5-6.6); NEUTROPHILS % (AUTO) 44.4 %; NUCLEATED RED BLOOD CELLS AUTO 0.1 /100WBC; RED BLOOD COUNT 3.73 10^6/uL (4.70-6.10); RED CELL DISTRIBUTION WIDTH 14.6 % (12.0-15.0); UNCORRECTED WHITE BLOOD COUNT 4.9 x10^3/uL; WHITE BLOOD COUNT 4.9 x10^3/uL (4.8-10.8)
[2017-06-30] MEDS: SODIUM CHLORIDE FLUSH 0.9% 10 ML SYRINGE IVP SCH ×3 (06:01→20:56)
[2017-06-30 06:04] LABS: ALBUMIN/GLOBULIN RATIO 1.5 (1.0-2.2); BILIRUBIN,TOTAL 1.1 mg/dL (0.2-1.0); BUN - BLOOD UREA NITROGEN 7 mg/dL (6-20); CALCIUM 8.4 mg/dL (8.5-10.3); CARBON DIOXIDE - CO2 29 mmol/L (21-32); CHLORIDE 105 mmol/L (101-111); CREATININE 0.7 mg/dL (0.6-1.2); GFR - MDRD 109 (>89); GLUCOSE 94 mg/dL (70-100); LIPASE 51 U/L (22-51); MAGNESIUM 1.6 mg/dL (1.7-2.8); POTASSIUM 2.6 mmol/L (3.5-5.0); SODIUM 140 mmol/L (135-145); TOTAL PROTEIN 5.8 g/dL (6.7-8.2)
[2017-06-30 06:34] LABS: INR 1.2 (0.8-1.2); PT - PROTHROMBIN TIME 13.4 secs (9.9-12.6)
[2017-06-30] MEDS: CHOLECALCIFEROL 5,000 UNIT CAPSULE PO SCH ×2 (08:25→20:54)
[2017-06-30] MEDS: DONEPEZIL 5 MG TABLET PO SCH (08:25)
[2017-06-30] MEDS: FLUDROCORTISONE 0.1 MG TABLET PO SCH (08:25)
[2017-06-30] MEDS: SACCHAROMYCES BOULARDII 250 MG CAPSULE PO SCH ×2 (08:25→16:14)
[2017-06-30] MEDS: SERTRALINE 50 MG TABLET PO SCH (08:25)
[2017-06-30] MEDS: FLUTICASONE NASAL SPRAY NAS SCH ×3 (08:26)
[2017-06-30] MEDS: MIDODRINE HCL 5 MG PO SCH ×3 (08:26→20:53)
[2017-06-30] MEDS: Carbidopa/Levodopa [Rytary Er 23.75 Mg-95 Mg Cap] PO SCH ×3 (08:27→20:54)
[2017-06-30] MEDS: POTASSIUM CHLORIDE 20 MEQ TABLET PO SCH ×4 (08:31→20:55)
[2017-06-30] MEDS: MULTIVITAMIN 10 ML in SODIUM CHLORIDE 0.9% 1,000 ML IV SCH (09:14)
[2017-06-30] MEDS: THIAMINE INJ 100 MG, FOLIC ACID INJ 1 MG in SODIUM CHLORIDE 0.9% 100ML 100 ML IM SCH (09:14)
[2017-06-30] MEDS: POTASSIUM CHLOR 10 MEQ/100 ML 100 ML IV SCH ×5 (10:26→22:39)
--- NOTE | 2017-06-30 11:29 | PROVIDER PROGRESS NOTE ---
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 patient has not had a bowel movement today and is beginning to tolerate a full diet today. He has no abdominal cramping and is feeling better. potassium being replaced but not improving. continue with gluten free diet. encourage oral intake. monitor electrolytes and output (2) Urinary retention with incomplete bladder emptying Assessment/Plan: chronic. patient is urinating without difficulty and will continue to monitor output (3) Parkinson disease Assessment/Plan: chronic. continue on home medications. physical therapy assist and will sign off since patient is at baseline. (4) Hypokalemia Assessment/Plan: ongoing. acute. potassium continues to be low. will hold Fiorinef and see if this helps to raise the potassium levels by tomorrow. will give both IV and oral. will recheck levels in the morning. (5) Low serum magnesium level Assessment/Plan: ongoing. will continue to monitor with lab draws and give IV and oral since patient should be absorbing the oral now. will repeat level in the morning. 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 Patient has remained stable blood pressures. assist when ambulating. will hold fiorinef since this maybe dropping his potassium and magnesium levels. His diarrhea has resolved and potassium is still low. - Current Meds Current Meds: Current Medications Generic Name Dose Route Start Last Admin Trade Name Anali PRN Reason Stop Dose Admin Cholecalciferol 5,000 unit 06/29/17 21:00 06/30/17 08:25 Vitamin D3 PO 5,000 unit BID BREN Administration Clopidogrel Bisulfate 75 mg 06/26/17 21:00 06/29/17 20:41 Plavix PO 75 mg QPM BREN Administration Donepezil HCl 10 mg 06/26/17 09:00 06/30/17 08:25 Aricept PO 10 mg DAILY BREN Administration Fludrocortisone Acetate 0.1 mg 06/26/17 19:00 06/29/17 18:59 Florinef PO 0.1 mg 1900 BREN Administration Fludrocortisone Acetate 0.2 mg 06/27/17 08:00 06/30/17 08:25 Florinef PO 0.2 mg 0800 BREN Administration Multivitamins 10 ml/ Sodium 1,010 mls @ 200 mls/hr 06/29/17 09:00 06/30/17 09: 14 Chloride IV 200 mls/hr DAILY BREN Administration Thiamine HCl 100 mg/ Folic 101.2 mls @ 50.6 mls/hr 06/29/17 09:00 06/30/17 09: 14 Acid 1 mg/ Sodium Chloride IM 50.6 mls/hr DAILY BREN Administration Potassium Chloride 100 mls @ 100 mls/hr 06/30/17 09:00 06/30/17 10:26 Potassium Chloride IV 06/30/17 14:59 100 mls/hr Q1H BREN Administration Carbidopa/Levodopa [ 4 each 06/26/17 08:00 06/30/17 08:27 Rytary Er 23.75 Mg- PO 4 each 95 Mg Cap] 0800,1300,1900 BREN Administration (Ezetimibe/ 1 each 06/26/17 21:00 06/29/17 20:34 Simvastatin [Vytorin PO 1 each 10-20 Mg Tablet]) QPM BREN Administration (Midodrine Hcl [ 2 each 06/26/17 08:00 06/30/17 08:26 Midodrine Hcl] 5 Mg) PO 2 each Tab 0800,1300,1900 BREN Administration Fluticasone Nasal 2 each 06/26/17 09:00 06/30/17 08:26 [place] LISE 2 each DAILY BREN Administration Potassium Chloride 20 meq 06/26/17 09:00 06/30/17 08:31 K-Dur PO 20 meq QID BREN Administration Saccharomyces Boulardii 500 mg 06/28/17 13:00 06/30/17 08:25 Florastor PO 500 mg BIDWM BREN Administration Sertraline HCl 100 mg 06/26/17 09:00 06/30/17 08:25 Zoloft PO 100 mg DAILY BREN Administration Sodium Chloride 10 ml 06/25/17 22:13 06/28/17 19:03 Normal Saline Flush 0.9% IVP 10 ml PRN PRN Administration NEEDED PER PROVIDER ORDERS Sodium Chloride 10 ml 06/29/17 22:00 06/30/17 06:01 Normal Saline Flush 0.9% IVP 10 ml Q8HR BREN Administration Zolpidem Tartrate 5 mg 06/30/17 03:13 06/30/17 03:51 Ambien PO 5 mg QPM PRN Administration Insomnia - Lab Result Lab results reviewed: Yes Fish Bone Diagrams: 07/01/17 05:07 07/01/17 05:07 Other Lab Results: Laboratory Last Values WBC 5.5 x10^3/uL (4.8-10.8) 07/01/17 05:07 RBC 3.84 10^6/uL (4.70-6.10) L 07/01/17 05:07 Hgb 12.9 g/dL (14.0-18.0) L 07/01/17 05:07 Hct 37.8 % (42.0-52.0) L 07/01/17 05:07 MCV 98.6 fL (80.0-94.0) H 07/01/17 05:07 MCH 33.5 pg (27.0-31.0) H 07/01/17 05:07 MCHC 34.0 g/dL (32.0-36.0) 07/01/17 05:07 RDW 14.2 % (12.0-15.0) 07/01/17 05:07 Plt Count 172 10^3/uL (130-450) 07/01/17 05:07 MPV 9.2 fL (7.4-11.4) 07/01/17 05:07 Reticulocyte % (Auto) 0.59 % (0.5-2.3) 06/29/17 06:20 Neut # 2.7 10^3/uL (1.5-6.6) 07/01/17 05:07 Lymph # 1.8 10^3/uL (1.5-3.5) 07/01/17 05:07 [place] # 0.4 10^3/uL (0.0-1.0) 07/01/17 05:07 Eos # 0.4 10^3/uL (0.0-0.7) 07/01/17 05:07 Baso # 0.1 10^3/uL (0.0-0.1) 07/01/17 05:07 Absolute Nucleated RBC 0.01 x10^3/uL 07/01/17 05:07 Nucleated RBCs 0.1 /100WBC 07/01/17 05:07 Absolute Retic 0.025 10^6/uL (0.020-0.110) 06/29/17 06:20 PT 13.4 secs (9.9-12.6) H 06/30/17 06:20 INR 1.2 (0.8-1.2) 06/30/17 06:20 Sodium 141 mmol/L (135-145) 07/01/17 05:07 Potassium 3.4 mmol/L (3.5-5.0) L 07/01/17 05:07 Chloride 107 mmol/L (101-111) 07/01/17 05:07 Carbon Dioxide 29 mmol/L (21-32) 07/01/17 05:07 Anion Gap 5.0 (6-13) L 07/01/17 05:07 BUN 12 mg/dL (6-20) 07/01/17 05:07 Creatinine 0.9 mg/dL (0.6-1.2) 07/01/17 05:07 Estimated GFR (MDRD) 82 (>89) L 07/01/17 05:07 Glucose 93 mg/dL (70-100) 07/01/17 05:07 Lactic Acid 1.1 mmol/L (0.5-2.2) 06/25/17 19:43 Calcium 8.8 mg/dL (8.5-10.3) 07/01/17 05:07 Phosphorus 2.9 mg/dL (2.5-4.6) 06/28/17 09:03 Magnesium 2.0 mg/dL (1.7-2.8) 07/01/17 05:07 Iron 97 ug/dL (45-182) 06/29/17 06:20 TIBC 311 ug/dL (250-450) 06/29/17 06:20 % Saturation 31 % (20-50) 06/29/17 06:20 Transferrin 222 mg/dL (180-329) 06/29/17 06:20 Ferritin 173.5 ng/mL (23.9-336.2) 06/29/17 06:20 Total Bilirubin 1.4 mg/dL (0.2-1.0) H 07/01/17 05:07 GGT 17 IU/L (8-55) 06/28/17 09:03 AST 15 IU/L (10-42) 07/01/17 05:07 ALT < 10 IU/L (10-60) L 07/01/17 05:07 Alkaline Phosphatase 54 IU/L (42-121) 07/01/17 05:07 Lactate Dehydrogenase 127 IU/L (91-225) 06/29/17 06:20 Troponin I < 0.04 ng/mL (<0.49) 06/25/17 19:43 C-Reactive Protein < 1.0 mg/dL (0-1.0) 06/28/17 09:03 Total Protein 5.8 g/dL (6.7-8.2) L 07/01/17 05:07 Albumin 3.6 g/dL (3.2-5.5) 07/01/17 05:07 Globulin 2.2 g/dL (2.1-4.2) 07/01/17 05:07 Albumin/Globulin Ratio 1.6 (1.0-2.2) 07/01/17 05:07 Amylase 86 U/L (28-100) 06/27/17 08:41 Lipase 51 U/L (22-51) 06/30/17 05:06 Prostate Specific Ag 7.560 ng/mL (0.000-2.000) H 06/28/17 12:18 Vitamin B12 494 pg/mL (180-914) 06/29/17 06:20 Vit D 1,25-Dihyd Total 93 pg/mL (18-72) H 06/28/17 16:31 1,25 Dihydroxy Vit D2 <8 pg/mL (()) 06/28/17 16:31 1,25 Dihydroxy Vit D3 93 pg/mL (()) 06/28/17 16:31 TSH 1.63 uIU/mL (0.34-5.60) 06/28/17 09:03 Free T4 1.18 ng/dL (0.58-1.64) 06/28/17 09:03 Urine Color YELLOW 06/26/17 14:29 Urine Clarity CLEAR (CLEAR) 06/26/17 14:29 Urine pH 6.0 PH (5.0-7.5) 06/26/17 14:29 Ur Specific [place] 1.020 (1.002-1.030) 06/26/17 14:29 Urine Protein NEGATIVE mg/dL (NEGATIVE) 06/26/17 14:29 Urine Glucose (UA) NEGATIVE mg/dL (NEGATIVE) 06/26/17 14:29 Urine Ketones NEGATIVE mg/dL (NEGATIVE) 06/26/17 14:29 Urine Occult Blood NEGATIVE (NEGATIVE) 06/26/17 14:29 Urine Nitrite NEGATIVE (NEGATIVE) 06/26/17 14:29 Urine Bilirubin NEGATIVE (NEGATIVE) 06/26/17 14:29 Urine Urobilinogen 0.2 (NORMAL) E.U./dL (NORMAL) 06/26/17 14:29 Ur Leukocyte Esterase NEGATIVE (NEGATIVE) 06/26/17 14:29 Ur Microscopic Review NOT INDICATED 06/26/17 05:50 Urine Culture Comments NOT INDICATED 06/26/17 05:50 Stool Leukocytes, Qual POSITIVE (Negative) 06/26/17 05:50 Hepatitis A IgM Ab NON-REACTIVE (NON-REACTIVE) 06/29/17 06:20 Hep Bs Antigen NON-REACTIVE (NON-REACTIVE) 06/29/17 06:20 Hep B Core IgM Ab NON-REACTIVE (NON-REACTIVE) 06/29/17 06:20 Hepatitis C Antibody NON-REACTIVE (NON-REACTIVE) 06/29/17 06:20 Hep C Ab Signal/Cutoff 0.00 (<1.00) 06/29/17 06:20 Ova & Parasites SEE NOTE (()) 06/26/17 05:50 - EKG Results EKG Interpreted Independently: No - Additional Planning Condition/Complexity: Stable My Orders: My Active Orders 06/29/17 10:29 HELICOBACTER PYLORI AG STOOL [REFLAB] Routine 06/29/17 12:22 SMOOTH MUSCLE IGG AB [REFLAB] Routine 06/29/17 21:00 Cholecalciferol [Vitamin D3] 5,000 unit PO BID 06/29/17 22:00 Sodium Chloride Flush 0.9% [Normal Saline Flush 0.9%] 10 ml IVP Q8HR 06/30/17 Guiaic [OCCULT BLOOD IN PAT. SINGLE] [RAPID] Stat 06/30/17 05:06 CELIAC DISEASE PANEL W TITER [REFLAB] Routine 06/30/17 09:00 Potassium Chlor 10 Meq/100 ml [Potassium Chloride] 100 ml IV Q1H Consult/Specialty: OT, PT Plan Discussed with:: Patient, Spouse Time Spent: 31-60 minutes Subjective - Subjective Patient Reports: Feeling Better (no diarrhea or abdominal pain. no chest pain or shortness of breath), Resting Comfortably, No Complaints Nursing Reports: No Complaints Objective Vital Signs: Vital Signs - 24 hr 06/29/17 06/30/17 06/30/17 15:36 00:01 07:46 Temperature 36.4 C L 36.5 C 36.3 C L Heart Rate [ 53 L 55 L 92 Brachial] Respiratory 20 18 16 Rate Blood Pressure 154/71 H [Left Brachial artery] Blood Pressure 178/72 H 168/74 H [Right Brachial artery] O2 Saturation 99 99 100 Oxygen O2 Source Room air I&O (Last 24 Hrs): Intake and Output Totals x24h 06/28/17 06/29/17 06/30/17 23:59 23:59 23:59 Intake Total 3770 4026 450 Balance 3770 4026 450 General: Alert, Oriented x3, Cooperative HEENT: Atraumatic, PERRLA, EOMI, Mucous membr. moist/pink Neck: Supple, No JVD, No thyromegaly, +2 carotid pulse wo bruit Lymphatic: no adenopathy Neuro: Alert, CN 2-12 Grossly Intact, Oriented Times 3 Cardiovascular: Regular rate, Normal S1, Normal S2 Respiratory: Chest non-tender, No respiratory distress, Breath sounds nml Abdomen: Normal bowel sounds, Soft, No tenderness, No hepatospenomegaly Genitourinary: Normal Inspection Rectal: Non-Tender, Stool - Heme NEG Extremities: No clubbing, No cyanosis, No edema, Normal pulses Skin: No rashes, No breakdown, No significant lesion (Patient will still need another 24 hour stay. He is not bleeding rectally but potassium and magnesium still low. Will reassess and hold Fiorinef and hope to discharge tomorrow if electrolytes stabilize.) - Results Results: Laboratory Results WBC 4.9 x10^3/uL (4.8-10.8) 06/30/17 05:06 RBC 3.73 10^6/uL (4.70-6.10) L 06/30/17 05:06 Hgb 12.5 g/dL (14.0-18.0) L 06/30/17 05:06 Hct 37.0 % (42.0-52.0) L 06/30/17 05:06 MCV 99.2 fL (80.0-94.0) H 06/30/17 05:06 MCH 33.4 pg (27.0-31.0) H 06/30/17 05:06 MCHC 33.7 g/dL (32.0-36.0) 06/30/17 05:06 RDW 14.6 % (12.0-15.0) 06/30/17 05:06 Plt Count 167 10^3/uL (130-450) 06/30/17 05:06 MPV 9.2 fL (7.4-11.4) 06/30/17 05:06 Reticulocyte % (Auto) 0.59 % (0.5-2.3) 06/29/17 06:20 Neut # 2.2 10^3/uL (1.5-6.6) 06/30/17 05:06 Lymph # 2.0 10^3/uL (1.5-3.5) 06/30/17 05:06 [place] # 0.4 10^3/uL (0.0-1.0) 06/30/17 05:06 Eos # 0.3 10^3/uL (0.0-0.7) 06/30/17 05:06 Baso # 0.0 10^3/uL (0.0-0.1) 06/30/17 05:06 Absolute Nucleated RBC 0.01 x10^3/uL 06/30/17 05:06 Nucleated RBCs 0.1 /100WBC 06/30/17 05:06 Absolute Retic 0.025 10^6/uL (0.020-0.110) 06/29/17 06:20 PT 13.4 secs (9.9-12.6) H 06/30/17 06:20 INR 1.2 (0.8-1.2) 06/30/17 06:20 Sodium 140 mmol/L (135-145) 06/30/17 05:06 Potassium 2.6 mmol/L (3.5-5.0) L 06/30/17 05:06 Chloride 105 mmol/L (101-111) 06/30/17 05:06 Carbon Dioxide 29 mmol/L (21-32) 06/30/17 05:06 Anion Gap 6.0 (6-13) 06/30/17 05:06 BUN 7 mg/dL (6-20) 06/30/17 05:06 Creatinine 0.7 mg/dL (0.6-1.2) 06/30/17 05:06 Estimated GFR (MDRD) 109 (>89) 06/30/17 05:06 Glucose 94 mg/dL (70-100) 06/30/17 05:06 Lactic Acid 1.1 mmol/L (0.5-2.2) 06/25/17 19:43 Calcium 8.4 mg/dL (8.5-10.3) L 06/30/17 05:06 Phosphorus 2.9 mg/dL (2.5-4.6) 06/28/17 09:03 Magnesium 1.6 mg/dL (1.7-2.8) L 06/30/17 05:06 Iron 97 ug/dL (45-182) 06/29/17 06:20 TIBC 311 ug/dL (250-450) 06/29/17 06:20 % Saturation 31 % (20-50) 06/29/17 06:20 Transferrin 222 mg/dL (180-329) 06/29/17 06:20 Ferritin 173.5 ng/mL (23.9-336.2) 06/29/17 06:20 Total Bilirubin 1.1 mg/dL (0.2-1.0) H 06/30/17 05:06 GGT 17 IU/L (8-55) 06/28/17 09:03 AST 13 IU/L (10-42) 06/30/17 05:06 ALT < 10 IU/L (10-60) L 06/30/17 05:06 Alkaline Phosphatase 58 IU/L (42-121) 06/30/17 05:06 Lactate Dehydrogenase 127 IU/L (91-225) 06/29/17 06:20 Troponin I < 0.04 ng/mL (<0.49) 06/25/17 19:43 C-Reactive Protein < 1.0 mg/dL (0-1.0) 06/28/17 09:03 Total Protein 5.8 g/dL (6.7-8.2) L 06/30/17 05:06 Albumin 3.5 g/dL (3.2-5.5) 06/30/17 05:06 Globulin 2.3 g/dL (2.1-4.2) 06/30/17 05:06 Albumin/Globulin Ratio 1.5 (1.0-2.2) 06/30/17 05:06 Amylase 86 U/L (28-100) 06/27/17 08:41 Lipase 51 U/L (22-51) 06/30/17 05:06 Prostate Specific Ag 7.560 ng/mL (0.000-2.000) H 06/28/17 12:18 Vitamin B12 494 pg/mL (180-914) 06/29/17 06:20 TSH 1.63 uIU/mL (0.34-5.60) 06/28/17 09:03 Free T4 1.18 ng/dL (0.58-1.64) 06/28/17 09:03 Urine Color YELLOW 06/26/17 14:29 Urine Clarity CLEAR (CLEAR) 06/26/17 14:29 Urine pH 6.0 PH (5.0-7.5) 06/26/17 14:29 Ur Specific [place] 1.020 (1.002-1.030) 06/26/17 14:29 Urine Protein NEGATIVE mg/dL (NEGATIVE) 06/26/17 14:29 Urine Glucose (UA) NEGATIVE mg/dL (NEGATIVE) 06/26/17 14:29 Urine Ketones NEGATIVE mg/dL (NEGATIVE) 06/26/17 14:29 Urine Occult Blood NEGATIVE (NEGATIVE) 06/26/17 14:29 Urine Nitrite NEGATIVE (NEGATIVE) 06/26/17 14:29 Urine Bilirubin NEGATIVE (NEGATIVE) 06/26/17 14:29 Urine Urobilinogen 0.2 (NORMAL) E.U./dL (NORMAL) 06/26/17 14:29 Ur Leukocyte Esterase NEGATIVE (NEGATIVE) 06/26/17 14:29 Ur Microscopic Review NOT INDICATED 06/26/17 05:50 Urine Culture Comments NOT INDICATED 06/26/17 05:50 Stool Leukocytes, Qual POSITIVE (Negative) 06/26/17 05:50 Ova & Parasites SEE NOTE (()) 06/26/17 05:50 - Procedures Procedures: Procedures EXCISE CORD/EPID LES NEC (02/22/14) LAPAROSCOP APPENDECTOMY (10/29/13) OTH & OPEN REPAIR INDIRECT INGUINAL HERNIA W GRFT OR PROSTH (02/22/14)
[2017-06-30] MEDS: MAGNESIUM SULFATE 2 GRAM 50 ML IV SCH ×2 (11:55→13:08)
[2017-06-30] MEDS ORDERED: POTASSIUM CHLORIDE 20 MEQ TABLET PO SCH ×2 (12:00)
[2017-06-30] MEDS: MAGNESIUM OXIDE 400 MG TABLET PO SCH (12:39)
[2017-06-30] MEDS: ZINC SULFATE 220 MG CAPSULE PO SCH (12:40)
[2017-06-30] MEDS: ASCORBIC ACID CHEW 500 MG TABLET PO SCH (12:40)
[2017-06-30] MEDS: THIAMINE 100 MG/1 ML 2 ML MDV IM SCH (13:26)
[2017-06-30] MEDS: CLOPIDOGREL 75 MG TABLET PO SCH (20:54)
[2017-06-30] MEDS: OMEGA-3 ACID ETHYL ESTERS 1 GM CAPSULE PO SCH (20:54)
[2017-06-30] MEDS: SIMVASTATIN PO SCH (20:56)
[2017-06-30] MEDS: EZETIMIBE PO SCH (20:56)
[2017-07-01] MEDS: POTASSIUM CHLOR 10 MEQ/100 ML 100 ML IV SCH ×9 (00:12→15:18)
[2017-07-01] MEDS: ZOLPIDEM 5 MG TABLET PO PRN (00:26)
[2017-07-01] MEDS: SODIUM CHLORIDE FLUSH 0.9% 10 ML SYRINGE IVP SCH ×2 (05:31→13:00)
[2017-07-01 05:54] LABS: BASOPHILS # (AUTO) 0.1 10^3/uL (0.0-0.1); BASOPHILS % (AUTO) 1.1 %; EOSINOPHILS # (AUTO) 0.4 10^3/uL (0.0-0.7); HCT - HEMATOCRIT 37.8 % (42.0-52.0); HGB - HEMOGLOBIN 12.9 g/dL (14.0-18.0); LYMPHOCYTES # (AUTO) 1.8 10^3/uL (1.5-3.5); LYMPHOCYTES % (AUTO) 33.5 %; MEAN CORPUSCULAR HEMOGLOBIN 33.5 pg (27.0-31.0); MEAN CORPUSCULAR VOLUME 98.6 fL (80.0-94.0); MEAN PLATELET VOLUME 9.2 fL (7.4-11.4); MONOCYTES # (AUTO) 0.4 10^3/uL (0.0-1.0); MONOCYTES % (AUTO) 7.6 %; NEUTROPHILS # (AUTO) 2.7 10^3/uL (1.5-6.6); NEUTROPHILS % (AUTO) 49.8 %; NUCLEATED RED BLOOD CELLS AUTO 0.1 /100WBC; RED BLOOD COUNT 3.84 10^6/uL (4.70-6.10); RED CELL DISTRIBUTION WIDTH 14.2 % (12.0-15.0); UNCORRECTED WHITE BLOOD COUNT 5.5 x10^3/uL; WHITE BLOOD COUNT 5.5 x10^3/uL (4.8-10.8)
[2017-07-01 06:09] LABS: ALBUMIN/GLOBULIN RATIO 1.6 (1.0-2.2); BILIRUBIN,TOTAL 1.4 mg/dL (0.2-1.0); BUN - BLOOD UREA NITROGEN 12 mg/dL (6-20); CALCIUM 8.8 mg/dL (8.5-10.3); CARBON DIOXIDE - CO2 29 mmol/L (21-32); CHLORIDE 107 mmol/L (101-111); CREATININE 0.9 mg/dL (0.6-1.2); GFR - MDRD 82 (>89); GLUCOSE 93 mg/dL (70-100); POTASSIUM 3.4 mmol/L (3.5-5.0); SODIUM 141 mmol/L (135-145); TOTAL PROTEIN 5.8 g/dL (6.7-8.2)
[2017-07-01] MEDS ORDERED: MAGNESIUM SULFATE 2 GRAM 50 ML IV ONE (07:53)
[2017-07-01] MEDS: MAGNESIUM OXIDE 400 MG TABLET PO SCH (08:03)
[2017-07-01] MEDS: SACCHAROMYCES BOULARDII 250 MG CAPSULE PO SCH (08:04)
[2017-07-01] MEDS: CHOLECALCIFEROL 5,000 UNIT CAPSULE PO SCH (08:04)
[2017-07-01] MEDS: SERTRALINE 50 MG TABLET PO SCH (08:04)
[2017-07-01] MEDS: POTASSIUM CHLORIDE 20 MEQ TABLET PO SCH (08:04)
[2017-07-01] MEDS: ASCORBIC ACID CHEW 500 MG TABLET PO SCH (08:04)
[2017-07-01] MEDS: ZINC SULFATE 220 MG CAPSULE PO SCH (08:04)
[2017-07-01] MEDS: DONEPEZIL 5 MG TABLET PO SCH (08:04)
[2017-07-01] MEDS: OMEGA-3 ACID ETHYL ESTERS 1 GM CAPSULE PO SCH (08:04)
[2017-07-01] MEDS: MIDODRINE HCL 5 MG PO SCH ×2 (08:05→13:01)
[2017-07-01] MEDS: Carbidopa/Levodopa [Rytary Er 23.75 Mg-95 Mg Cap] PO SCH ×2 (08:05→13:01)
[2017-07-01] MEDS: FLUTICASONE NASAL SPRAY NAS SCH ×3 (08:08)
[2017-07-01] MEDS: SODIUM CHLORIDE FLUSH 0.9% 10 ML SYRINGE IVP PRN (08:12)
[2017-07-01] MEDS ORDERED: THIAMINE INJ 100 MG, FOLIC ACID INJ 1 MG in SODIUM CHLORIDE 0.9% 100ML 100 ML IV SCH (08:17)
[2017-07-01 08:24] VITALS: BP 151/72
[2017-07-01] MEDS ORDERED: METHYLPHENIDATE 10 MG TABLET PO ONE (09:15)
--- NOTE | 2017-07-01 10:44 | DISCHARGE SUMMARY ---
"Discharge Summary Admit Date: 06/26/17 Discharge Date: 07/01/17 Discharging Provider: Maye Ferrera APRN Code Status: Attempt Resuscitation Condition at Discharge: Good Discharge Disposition: 01 Home, Self Care Discharge Facility Name: home - DIAGNOSES Admission Diagnoses: 1. ACUTE DIARRHEA WITH ELECTROLYTE IMBALANCES, HYPOKALMEIA AND LOW MAGNESIUM 2. ELEVATED AMYLASE AND LIPASE LEVELS, ACUTE ON CHRONIC 3. MILD DEHYDRATION 4. PARKINSON DISEASE CHRONIC 5. CORONARY ARTERY DISEASE ( Discharge Diagnoses with Status of Each Condition: 1. ACUTE DIARRHEA WITH ELECTROLYTE IMBALANCES, HYPOKALMEIA AND LOW MAGNESIUM 2. ELEVATED AMYLASE AND LIPASE LEVELS, ACUTE ON CHRONIC 3. MILD DEHYDRATION 4. PARKINSON DISEASE CHRONIC 5. CORONARY ARTERY DISEASE 6. HYPOKALEMIA WITH MEDICATION INDUCED 7. ORTHOSTATIC HYPOTENSION 8. HISTORY OF PROSTATE CANCER WITH SEEDING ( - HPI History of Present Illness: Stated complaint Stated Complaint: WEAKNESS/DIARRHEA - Chief complaint Chief Complaint: Neuro - History obtained from History obtained from: Patient, Family - History of Present Illness Timing: Other (77-year-old gentleman with history of Parkinson's, coronary disease, and labile blood pressures has had poor appetite and increasing fatigue for a week. He slipped and fell in the shower 2 nights ago when has persistent headache and neck pain since then and note made that he is on Plavix. He is bruise above his right eye. Since yesterday he has had profuse watery foul-smelling diarrhea with occasional but not current stomach cramps but no fevers or recent antibiotics. He was hypotensive for paramedics and feeling better after a fluid bolus in route.) - CONSULTS | PROCEDURES Consultations: PHYSICAL THERAPY Procedures: ULTRASOUND OF ABDOMEN- NO MASS IN BLADDER OR OBSTRUCTION - HOSPITAL COURSE Hospital Course: HOSPITAL PLAN (1) Urinary retention with incomplete bladder emptying Assessment/Plan: acute on chronic. completed ultrasound to rule out outlet obstruction and for mass. continued to monitor output. PSA elevated. good output (2) Parkinson disease with orthostatic hypotension Assessment/Plan: chronic. continued with home dosage of levadopa and on fall precautions. physical therapy consulted. gave B12 shot and vitamin D level since patient states these have been low in the past and was given supplements. Low levels can worsen Parkinson disease. continued florinef and held for two days due to low potassium levels. improved and then restarted back on Florinef at discharge. 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 improved and was given IVF and supplements of potassium chloride since oral was not helping alone. monitored levels with daily labs and held florinef for two days. (4) Low serum magnesium level Assessment/Plan: acute, continued to monitor magnesium levels and replaced with magnesium sulfate IV and repeated levels with daily lab draws. was sent home on magnesium supplements. (5) Diarrhea C.Diff test was negative. given probiotics. continued to check stool culture and parasite/Ov test- negative. continued IVF and corrected electrolytics. DVT prophylaxis with DANIEL hose and Lovenox SQ - ALLERGIES Allergies/Adverse Reactions: Allergies Allergy/AdvReac Type Severity Reaction Status Date / Time morphine Allergy Hallucinati Verified 06/25/17 19:16 ons - MEDICATIONS Home Medications: Ambulatory Orders Medication Instructions Recorded Confirmed Carbidopa/Levodopa [Rytary ER 4 cap PO 0800,1300,1900 05/31/16 07/10/17 23.75 mg-95 mg Cap] Donepezil HCl 10 mg PO DAILY 05/31/16 07/10/17 Fluticasone Propionate 2 spray LISE DAILY 06/25/17 07/11/17 Midodrine HCl 10 mg PO 0800,1300,1900 06/26/17 07/10/17 B12/Levomefolate Calcium/B-6 1 each PO DAILY #30 tablet 07/01/17 07/10/17 [Foltx Tablet] Cholecalciferol [Vitamin D3] 5,000 unit PO BID #60 capsule 07/01/17 07/11/17 Magnesium Oxide [Mag Ox] 400 mg PO DAILYWM #60 tablet 07/01/17 07/11/17 Multivitamin-Min/Iron/FA/Vit K 1 each PO DAILY #30 tablet 07/01/17 07/11/17 [Multi-Day Plus Minerals Tablet] Potassium Chloride [K-Dur] 20 meq PO QID #30 tablet 07/01/17 07/10/17 Sertraline HCl 100 mg PO DAILY 07/10/17 07/10/17 Tamsulosin HCl 0.4 mg PO QPM 07/10/17 07/10/17 Droxidopa [Northera] 100 mg PO BID #60 capsule 07/11/17 Fludrocortisone [Florinef] 0.1 mg PO QPM #30 tablet 07/11/17 [place]-3 Acid Ethyl Esters [Lovaza] 1 gm PO BID capsule 07/11/17 [place]-3 Fatty Acids/Fish Oil [Fish 1,000 mg PO BID 07/11/17 07/11/17 Oil 1,000 mg Softgel] Potassium Chloride [K-Dur] 20 meq PO DAILY #30 tablet 07/11/17 - PHYSICAL EXAM AT DISCHARGE General Appearance: positive: No acute distress, Alert Eyes Bilateral: positive: Normal inspection, PERRL, EOMI ENT: positive: ENT inspection nml, Pharynx nml, No signs of dehydration Neck: positive: Nml inspection, Thyroid nml, No JVD, Trachea midline Respiratory: positive: Chest non-tender, No respiratory distress, Breath sounds nml Cardiovascular: positive: Regular rate & rhythm, No murmur, No gallop Peripheral Pulses: positive: 2+ Abdomen: positive: Non-tender, No organomegaly, Nml bowel sounds. negative: Guarding, Rebound Rectal: positive: Stool - heme NEG Back: positive: Nml inspection Skin: positive: Color nml, No rash, Warm, Dry Extremities: positive: Non-tender, Full ROM. negative: Calf tenderness Neurologic/Psychiatric: positive: Oriented x3, CN's nml (2-12), Motor nml, Sensation nml, Mood/affect nml - LABS Result Diagrams: 07/01/17 05:07 07/01/17 14:45 Other Lab Results: Abnormal Lab Results 06/28/17 06/28/17 06/30/17 12:18 16:31 05:06 RBC Hgb Hct MCV MCH PT Potassium 2.6 mmol/L L mmol/L (3.5-5.0) Anion Gap Estimated GFR (MDRD) Calcium 8.4 mg/dL L mg/dL (8.5-10.3) Magnesium 1.6 mg/dL L mg/dL (1.7-2.8) Total Bilirubin 1.1 mg/dL H mg/dL (0.2-1.0) ALT < 10 IU/L L IU/L (10-60) Total Protein 5.8 g/dL L g/dL (6.7-8.2) Prostate Specific Ag 7.560 ng/mL H ng/mL (0.000-2.000) Vit D 1,25-Dihyd Total 93 pg/mL H pg/mL (18-72) 06/30/17 06/30/17 07/01/17 05:06 06:20 05:07 RBC 3.73 10^6/uL L 10^6/uL 3.84 10^6/uL L 10^6/uL (4.70-6.10) (4.70-6.10) Hgb 12.5 g/dL L g/dL 12.9 g/dL L g/dL (14.0-18.0) (14.0-18.0) Hct 37.0 % L % 37.8 % L % (42.0-52.0) (42.0-52.0) MCV 99.2 fL H fL 98.6 fL H fL (80.0-94.0) (80.0-94.0) MCH 33.4 pg H pg 33.5 pg H pg (27.0-31.0) (27.0-31.0) PT 13.4 secs H secs (9.9-12.6) Potassium Anion Gap Estimated GFR (MDRD) Calcium Magnesium Total Bilirubin ALT Total Protein Prostate Specific Ag Vit D 1,25-Dihyd Total 07/01/17 05:07 RBC Hgb Hct MCV MCH PT Potassium 3.4 mmol/L L mmol/L (3.5-5.0) Anion Gap 5.0 L (6-13) Estimated GFR (MDRD) 82 L (>89) Calcium Magnesium Total Bilirubin 1.4 mg/dL H mg/dL (0.2-1.0) ALT < 10 IU/L L IU/L (10-60) Total Protein 5.8 g/dL L g/dL (6.7-8.2) Prostate Specific Ag Vit D 1,25-Dihyd Total - DIAGNOSTIC IMAGING Diagnostic Imaging Results: Final report reviewed - FOLLOW UP Follow Up: PATIENT WAS INSTRUCTED TO SEE PRIMARY CARE PROVIDER WITHIN ONE WEEK OF DISCHARGE. HE IS TO CONTINUE ALL HOME MEDICATIONS AND TO CONTINUE TO TAKE SUPPLEMENTS FOR ELECTROLYTE IMBALANCE. HIS FIORINEF WAS HELD UP TO DISCHARGE AND RESTARTED TOLD TO RETURN TO ER IF SYMPTOMS HAPPENED AGAIN OR HAD CHEST PAIN OR SHORTNESS OF BREATH - TIME SPENT Time Spent in Discharge (Minutes): 45 (for discharge planning and educations and assessment)"
--- NOTE | 2017-07-01 10:47 | Discharge Plan ---
Discharge Plan Disposition: Home, Self Care Condition: Good Prescriptions: Saccharomyces Boulardii [Florastor] 250 mg PO BID #60 capsule B12/Levomefolate Calcium/B-6 [Foltx Tablet] 1 each PO DAILY #30 tablet Potassium Chloride [K-Dur] 20 meq PO QID #30 tablet [place]-3 Acid Ethyl Esters [Lovaza] 1 gm PO BID #60 capsule Magnesium Oxide [Mag Ox] 400 mg PO DAILYWM #60 tablet Multivitamin-Min/Iron/FA/Vit K [Multi-Day Plus Minerals Tablet] 1 each PO DAILY #30 tablet Cholecalciferol [Vitamin D3] 5,000 unit PO BID #60 capsule Diet: Cardiac Activity Restrictions: Wt Bearing as Tolerated Shower Restrictions: No Driving Restrictions: No Assistance Devices: Walker, Cane Weight Bearing: Full Weight Instruction Topics: Diet Gluten Free Celiac, Parkinson Disease Dc Additional Instructions or Follow Up instructions: Return to the ER if you experience chest pain, shortness of breath, fever or symptoms reoccur. You have been started on a gluten free and dairy free diet for inflammation in your GI tract. Once you have established a good eating pattern with no bowel changes, you can add back in some dairy into your diet as tolerated. You have been given several prescriptions for multivitamins and supplements. Please be sure to take them as prescribed. You need to have your primary care provider redraw your blood and check your magnesium and potassium levels. Your fiorinef has been stopped since this is making your potassium and magnesium levels low. Your statin was stopped since this can add to muscle pain and weakness. You have been started on omega 3 fish oil as a supplement. continue to get as much rest at night as possible. Melatonin over the counter is a good supplement to take to help with sleep Some websites to go to for recipes for diet are: [employer] No Smoking: If you smoke, Please STOP! Call for help. Follow-up with: VIVEK HARTLEY MD [Primary Care Provider] -
[2017-07-01] MEDS ORDERED: POTASSIUM CHLORIDE 20 MEQ TABLET PO ONE (10:55)
[2017-07-01] MEDS ORDERED: MAGNESIUM OXIDE 400 MG TABLET PO SCH (11:00)
[2017-07-01] MEDS: MULTIVITAMIN 10 ML in SODIUM CHLORIDE 0.9% 1,000 ML IV SCH (11:11)
[2017-07-01] MEDS: THIAMINE 100 MG/1 ML 2 ML MDV IM SCH (11:25)
[2017-07-01 15:05] LABS: MAGNESIUM 2.2 mg/dL (1.7-2.8); POTASSIUM 3.6 mmol/L (3.5-5.0)
[2017-07-07 18:36] LABS: GLIADIN (DEAMIDATED) AB IGA 3 U (<20); GLIADIN (DEAMIDATED) AB IGG 5 U (<20); IMMUNOGLOBULIN A 121 mg/dL (81-463); TISSUE TRANSGLUTAMINASE IGA <1 U/mL (()); TISSUE TRANSGLUTAMINASE IGG <1 U/mL (())
== END 2017-07-01 16:39 | disposition home or self-care (01) | DRG 392 ==
LOC: EDUNIT# → ED 19:09 → OBS 22:13 → OBSVTOIN 06-26 16:27 → MS2 06-26 16:27 → OBS 06-26 17:19 → MS2 06-26 19:21
PROVIDERS: ADMIT Specialist; ATTEND Nurse Practitioner
DX: R19.7 Diarrhea, unspecified (principal); I95.2 Hypotension due to drugs; K90.9 Intestinal malabsorption, unspecified; E87.6 Hypokalemia; E83.42 Hypomagnesemia; R74.8 Abnormal levels of other serum enzymes; E86.0 Dehydration; G20 Parkinson's disease; I25.10 Atherosclerotic heart disease of native coronary artery without angina pectoris; T38.0X5S Adverse effect of glucocorticoids and synthetic analogues, sequela; T44 Poisoning by, adverse effect of and underdosing of drugs primarily affecting the autonomic nervous system; I95.1 Orthostatic hypotension; R33.9 Retention of urine, unspecified; F02.80 Dementia in other diseases classified elsewhere, unspecified severity, without behavioral disturbance, psychotic disturbance, mood disturbance, and anxiety; R13.10 Dysphagia, unspecified; R26.0 Ataxic gait; G47.33 Obstructive sleep apnea (adult) (pediatric); R39.15 Urgency of urination; R35.0 Frequency of micturition; R35.1 Nocturia; F32.9 Major depressive disorder, single episode, unspecified; S00.83XD Contusion of other part of head, subsequent encounter; S50.12XD Contusion of left forearm, subsequent encounter; S50.11XD Contusion of right forearm, subsequent encounter; S80.12XD Contusion of left lower leg, subsequent encounter; S80.11XD Contusion of right lower leg, subsequent encounter; S30.0XXD Contusion of lower back and pelvis, subsequent encounter; Z85.46 Personal history of malignant neoplasm of prostate; Z92.3 Personal history of irradiation; Z91.81 History of falling; Z79.899 Other long term (current) drug therapy; Z79.02 Long term (current) use of antithrombotics/antiplatelets; Z66 Do not resuscitate; I25.2 Old myocardial infarction; Z87.891 Personal history of nicotine dependence; Z95.5 Presence of coronary angioplasty implant and graft
CPT/HCPCS: 36415; 70450; 72125; 74177; 76705; 76857; 80048; 80053; 80074; 81001; 81003; 82150; 82270; 82607; 82652; 82728; 82784; 82977; 83516; 83540; 83605; 83615; 83630; 83690; 83735; 83993; 84100; 84132; 84153; 84439; 84443; 84466; 84484; 85025; 85044; 85610; 86140; 86256; 87045; 87046; 87081; 87086; 87177; 87209; 87338; 87493; 93005; 96360; 96361; 96365; 99284; 99285

== ENCOUNTER 2017-07-07 10:41 | Outpatient (CLI) | payer MEDICARE, OTHER | END 2017-07-07 10:42 | disposition EMS.NT | LOC: EMS 10:41 | PROVIDERS: ATTEND Surgery | DX: R55 Syncope and collapse (principal); R42 Dizziness and giddiness ==

== ENCOUNTER 2017-07-10 09:21 | Outpatient (CLI) | payer MEDICARE, OTHER | END 2017-07-10 09:22 | disposition critical access hospital (66) | LOC: EMS 09:21 | PROVIDERS: ATTEND Surgery | DX: R55 Syncope and collapse (principal) | CPT/HCPCS: A0425; A0429 ==

== ENCOUNTER 2017-07-10 09:38 | Inpatient (IN) | payer MEDICARE, OTHER ==
--- NOTE | 2017-07-10 09:50 | ED Physician Documentation ---
History of Present Illness - Stated complaint Stated Complaint: SYNCOPE - Additonal information Additional information: hx from pt 77 male recent admit for diarrhea and low BP since dc no more diarrhea but continued to have low BP upon sitting / standing numerous syncopal episodes and results falls 2/2 same hit head on plavix has neck pain also R hip and posterior pelvis pain no CP or AP denies fever cough NVD bloody black stools and urinary sx Review of Systems Constitutional: denies: Fever Ears: denies: Drainage/discharge Nose: denies: Epistaxis Cardiac: denies: Chest pain / pressure Respiratory: denies: Dyspnea GI: denies: Abdominal Pain, Nausea, Vomiting, Diarrhea, Bloody / black stool : denies: Dysuria Musculoskeletal: reports: Neck pain Neurologic: reports: Generalized weakness, Syncope, Headache, Head injury. denies: Focal weakness, Numbness, Altered mental status Endocrine: reports: Easy bruising / bleeding Immunocompromised: denies: Immunocompromised PD PAST MEDICAL HISTORY - Past Medical History Cardiovascular: Hypertension, High cholesterol, Coronary artery disease, [place] Respiratory: None Neuro: Parkinson's Endocrine/Autoimmune: None GI: GERD : Other HEENT: Chronic vision loss Psych: None Musculoskeletal: Osteoarthritis Derm: None - Past Surgical History Past Surgical History: Yes General: Appendectomy, Hiatal hernia repair Cardiovascular: Coronary stent HEENT: Cataracts, Tonsil/Adenoidectomy - Present Medications Home Medications: Ambulatory Orders Medication Instructions Recorded Confirmed Carbidopa/Levodopa [Rytary ER 4 cap PO 0800,1300,1900 05/31/16 07/10/17 23.75 mg-95 mg Cap] Donepezil HCl 10 mg PO DAILY 05/31/16 07/10/17 Fludrocortisone [Florinef] 0.1 mg PO QPM 12/22/16 06/26/17 Clopidogrel [Plavix] 75 mg PO QPM tablet 12/23/16 07/10/17 Fluticasone Propionate 2 spray LISE DAILY 06/25/17 06/26/17 Midodrine HCl 10 mg PO 0800,1300,1900 06/26/17 07/10/17 B12/Levomefolate Calcium/B-6 1 each PO DAILY #30 tablet 07/01/17 07/10/17 [Foltx Tablet] Cholecalciferol [Vitamin D3] 5,000 unit PO BID #60 capsule 07/01/17 Magnesium Oxide [Mag Ox] 400 mg PO DAILYWM #60 tablet 07/01/17 Multivitamin-Min/Iron/FA/Vit K 1 each PO DAILY #30 tablet 07/01/17 [Multi-Day Plus Minerals Tablet] [place]-3 Acid Ethyl Esters [Lovaza] 1 gm PO BID #60 capsule 07/01/17 Potassium Chloride [K-Dur] 20 meq PO QID #30 tablet 07/01/17 07/10/17 Ezetimibe/Simvastatin 1 tab PO QPM 07/10/17 07/10/17 [Ezetimibe-Simvastatin 10-20 mg] Pantoprazole [Protonix] 40 mg PO QDAC 07/10/17 07/10/17 Sertraline HCl [Sertraline HCl] 100 mg PO DAILY 07/10/17 07/10/17 Tamsulosin HCl [Tamsulosin HCl] 0.4 mg PO QPM 07/10/17 07/10/17 - Allergies Allergies/Adverse Reactions: Allergies Allergy/AdvReac Type Severity Reaction Status Date / Time morphine Allergy Hallucinati Verified 06/25/17 19:16 ons - Social History Does the pt smoke?: No Smoking Status: Former smoker Does the pt drink ETOH?: No Does the pt have substance abuse?: No - Immunizations Immunizations are current?: Yes - POLST Patient has POLST: No POLST Status: Full Code PD ED PE NORMAL - Vitals Vital signs reviewed: Yes - General General: Alert and oriented X 3 - HEENT HEENT: PERRL - Neck Neck: No: No bony TTP (+ bony TTP) - Cardiac Cardiac: RRR - Respiratory Respiratory: No respiratory distress, Clear bilaterally - Abdomen Abdomen: Soft, Non tender, Other (no pulsatile mass) - Back Back: No spinal TTP - Derm Derm: Normal color - Extremities Extremities: Other (RRP posterior R hip and SI region, no short or roatted, MSV intact) - Neuro Neuro: Alert and oriented X 3, No motor deficit, No sensory deficit, Normal speech Results - Vitals Vitals: Vital Signs - 24 hr 07/10/17 07/10/17 07/10/17 09:40 11:54 13:07 Temperature 36.6 C 36.5 C 36.6 C Heart Rate 71 56 L 59 L Respiratory 16 12 14 Rate Blood Pressure 121/70 131/99 H 127/62 O2 Saturation 99 99 98 Oxygen O2 Source Room air - EKG (time done) 0953 Rate: Rate (enter#) (68) Rhythm: NSR [place]: Normal Intervals: Normal [place] Ischemia: Non specific changes (flat T waves laterally) - Labs Labs: Laboratory Tests 07/10/17 07/10/17 07/10/17 11:35 11:35 11:35 WBC 6.1 RBC 3.71 L Hgb 12.4 L Hct 37.1 L MCV 99.9 H MCH 33.3 H MCHC 33.4 RDW 14.8 Plt Count 199 MPV 9.2 Neut # 4.4 Lymph # 1.0 L [place] # 0.4 Eos # 0.3 Baso # 0.1 Absolute Nucleated RBC 0.00 Nucleated RBCs 0.0 Sodium 142 Potassium 4.3 Chloride 105 Carbon Dioxide 27 Anion Gap 10.0 BUN 21 H Creatinine 1.3 H Estimated GFR (MDRD) 53 L Glucose 89 Lactic Acid Calcium 9.5 Total Bilirubin 1.1 H AST 19 ALT < 10 L Alkaline Phosphatase 71 Troponin I < 0.04 Total Protein 7.0 Albumin 4.2 Globulin 2.8 Albumin/Globulin Ratio 1.5 Lipase 140 H Urine Color Urine Clarity Urine pH Ur Specific [place] Urine Protein Urine Glucose (UA) Urine Ketones Urine Occult Blood Urine Nitrite Urine Bilirubin Urine Urobilinogen Ur Leukocyte Esterase Ur Microscopic Review Urine Culture Comments 07/10/17 07/10/17 11:35 12:13 WBC RBC Hgb Hct MCV MCH MCHC RDW Plt Count MPV Neut # Lymph # [place] # Eos # Baso # Absolute Nucleated RBC Nucleated RBCs Sodium Potassium Chloride Carbon Dioxide Anion Gap BUN Creatinine Estimated GFR (MDRD) Glucose Lactic Acid 0.9 Calcium Total Bilirubin AST ALT Alkaline Phosphatase Troponin I Total Protein Albumin Globulin Albumin/Globulin Ratio Lipase Urine Color YELLOW Urine Clarity CLEAR Urine pH 6.0 Ur Specific [place] 1.020 Urine Protein NEGATIVE Urine Glucose (UA) NEGATIVE Urine Ketones NEGATIVE Urine Occult Blood NEGATIVE Urine Nitrite NEGATIVE Urine Bilirubin NEGATIVE Urine Urobilinogen 0.2 (NORMAL) Ur Leukocyte Esterase NEGATIVE Ur Microscopic Review NOT INDICATED Urine Culture Comments NOT INDICATED - Rads (name of study) CTH Radiology: See rad report (no acute) CT CS Radiology: See rad report (no acute - C7 incomplete vis) CXR Radiology: See rad report (no acute) CT pelvis Radiology: See rad report (no fx) PD MEDICAL DECISION MAKING - ED course ED course: no head spine pelvic injury on imaging no infectious source for hypotension found not anemic per last H&P and speaking with hospitalist pt has hx orthostatic hypotension and is on florinef and midodrine for this - not sure what his usual day to day Bps are but he drops to SBP 50s upon standing and collapses so cannot be dced like that spoke with hospitalist who will come to eval pt - will discuss stress does hydrocortisone with her as well - Dr Brooks rec not to Departure - Departure Disposition: ED Place in Observation Clinical Impression: Orthostatic hypotension Falls Qualifiers: Encounter type: initial encounter Qualified Code(s): W19.XXXA - Unspecified fall, initial encounter
--- NOTE | 2017-07-10 11:17 | CT Preliminary Report ---
Exam: CT Head W/O IMPRESSION: Generalized age-related cortical atrophic changes without evidence of acute intracranial abnormality. No significant change from prior. [facility] S[id number]
--- NOTE | 2017-07-10 11:19 | CT Report ---
EXAM: CT HEAD EXAM DATE: 07/10/2017 10:44 AM. CLINICAL HISTORY: Fell hit head numerous times; increased risk of hemorrhage secondary to Plavix. COMPARISON: 06/25/2017. TECHNIQUE: Multiaxial CT images were obtained from the foramen magnum to the vertex. IV contrast: Non e. Reformats: Coronal. In accordance with CT protocol optimization, one or more of the following dose reduction techniques w ere utilized for this exam: automated exposure control, adjustment of mA and/or KV based on patient s ize, or use of iterative reconstructive technique. FINDINGS: Parenchyma: No intraparenchymal hemorrhage. No evidence of mass, midline shift, or CT findings of acu te infarction. Carrero-white differentiation is distinct. Extraaxial Spaces: Normal for age. No subdural or epidural collections identified. Ventricles: The ventricles and cortical sulci are enlarged, consistent with age-related tissue loss. Sinuses: Imaged paranasal sinuses, orbits, and mastoids show no significant abnormality. Bones: No evidence of fracture or calvarial defect. Other: Diffuse chronic microangiopathic white matter changes are evident. IMPRESSION: Generalized age-related cortical atrophic changes without evidence of acute intracranial abnormality. No significant change from prior. [facility] Referring Provider Line: [phone] SITE ID: [id number]
--- NOTE | 2017-07-10 11:25 | CT Preliminary Report ---
Exam: CT Cervical Spine W/O IMPRESSION: C7 was incompletely included on the examination. No acute abnormality in the imaged cervi rona spine. No significant change from prior. [facility] SITE ID: [id number]
--- NOTE | 2017-07-10 11:28 | CT Report ---
EXAM: CT CERVICAL SPINE WITHOUT CONTRAST DATE: 07/10/2017 10:59 AM HISTORY: Fell hit head neck pain. COMPARISONS: 06/25/2017. TECHNIQUE: Thin-section axial images were acquired of the cervical spine without contrast. Post-proce ssing: Coronal and sagittal reformats. Other: None. In accordance with CT protocol optimization, one or more of the following dose reduction techniques w ere utilized for this exam: automated exposure control, adjustment of mA and/or KV based on patient s ize, or use of iterative reconstructive technique. FINDINGS: Alignment: No scoliosis or spondylolisthesis. Bones: C7 is incompletely imaged. No fracture within the visualized cervical spine. Interspace Levels/Facets: Mild to moderate multilevel decreased disk height. Small posterior disk ost eophyte complexes C5-C6 and C6-C7. Mild multilevel facet arthropathy. Other: No prevertebral soft tissue thickening. Carotid artery calcifications. IMPRESSION: C7 was incompletely included on the examination. No acute abnormality in the imaged cervi rona spine. No significant change from prior. [facility] Referring Provider Line: [phone] SITE ID: [id number]
--- NOTE | 2017-07-10 11:31 | CT Preliminary Report ---
Exam: CT Pelvis W/O IMPRESSION: No acute osseous abnormality. [facility] SITE ID: [id number]
--- NOTE | 2017-07-10 11:33 | CT Report ---
EXAM: CT BONY PELVIS WITHOUT CONTRAST EXAM DATE: 07/10/2017 11:00 AM. CLINICAL HISTORY: Numerous falls, R hip and post pelvis pain. COMPARISON: CT abdomen pelvis 06/26/2017. TECHNIQUE: Thin-section axial images were acquired of the pelvis without contrast. Post-processing: C oronal and sagittal reformats. Other: None. In accordance with CT protocol optimization, one or more of the following dose reduction techniques w ere utilized for this exam: automated exposure control, adjustment of mA and/or KV based on patient s ize, or use of iterative reconstructive technique. FINDINGS: Bones: Diffuse demineralization. No fracture or focal osseous lesion. Moderate to severe degenerative change at L5-S1. Sacroiliac Joints: Within normal limits for age. Symphysis Pubis: Within normal limits for age. Right Hip: No dislocation or calcified loose bodies. Moderate degenerative change. Left Hip: No dislocation or calcified loose bodies. Moderate degenerative change. Pelvic Cavity: No acute abnormality or significant change from prior. Right renal cyst partially imag ed. Prostate brachytherapy seeds as before. Atherosclerotic vascular calcifications. Other: None. IMPRESSION: No acute osseous abnormality. [facility] Referring Provider Line: [phone] SITE ID: [id number]
--- NOTE | 2017-07-10 11:36 | XRAY Preliminary Report ---
Exam: XR Chest 1 View IMPRESSION: No radiographically apparent acute abnormality in the chest. No significant change from p rior. [facility] SITE ID: [id number]
--- NOTE | 2017-07-10 11:39 | XRAY Report ---
EXAM: CHEST RADIOGRAPHY EXAM DATE: 07/10/2017 11:05 AM. CLINICAL HISTORY: Hypotension. COMPARISON: 05/31/2016. TECHNIQUE: 1 view. FINDINGS: Lungs/Pleura: No focal consolidation evident. No pleural effusion. No pneumothorax. No pulmonary vasc ular congestion. Mediastinum: Within exam limitations, cardiomediastinal contour is normal. Aortic atherosclerosis. Other: None. IMPRESSION: No radiographically apparent acute abnormality in the chest. No significant change from p rior. [facility] Referring Provider Line: [phone] SITE ID: [id number]
[2017-07-10 11:51] LABS: BASOPHILS # (AUTO) 0.1 10^3/uL (0.0-0.1); EOSINOPHILS # (AUTO) 0.3 10^3/uL (0.0-0.7); EOSINOPHILS % (AUTO) 4.4 %; HCT - HEMATOCRIT 37.1 % (42.0-52.0); HGB - HEMOGLOBIN 12.4 g/dL (14.0-18.0); MEAN CORPUSCULAR HEMOGLOBIN 33.3 pg (27.0-31.0); MEAN CORPUSCULAR HGB CONC 33.4 g/dL (32.0-36.0); MEAN CORPUSCULAR VOLUME 99.9 fL (80.0-94.0); MEAN PLATELET VOLUME 9.2 fL (7.4-11.4); MONOCYTES # (AUTO) 0.4 10^3/uL (0.0-1.0); NEUTROPHILS # (AUTO) 4.4 10^3/uL (1.5-6.6); NEUTROPHILS % (AUTO) 72.6 %; RED BLOOD COUNT 3.71 10^6/uL (4.70-6.10); RED CELL DISTRIBUTION WIDTH 14.8 % (12.0-15.0); UNCORRECTED WHITE BLOOD COUNT 6.1 x10^3/uL; WHITE BLOOD COUNT 6.1 x10^3/uL (4.8-10.8)
[2017-07-10 12:00] LABS: ALBUMIN/GLOBULIN RATIO 1.5 (1.0-2.2); BILIRUBIN,TOTAL 1.1 mg/dL (0.2-1.0); BUN - BLOOD UREA NITROGEN 21 mg/dL (6-20); CALCIUM 9.5 mg/dL (8.5-10.3); CARBON DIOXIDE - CO2 27 mmol/L (21-32); CHLORIDE 105 mmol/L (101-111); CREATININE 1.3 mg/dL (0.6-1.2); GFR - MDRD 53 (>89); GLUCOSE 89 mg/dL (70-100); LIPASE 140 U/L (22-51); POTASSIUM 4.3 mmol/L (3.5-5.0); SODIUM 142 mmol/L (135-145)
[2017-07-10 12:25] LABS: BILIRUBIN,URINE NEGATIVE (NEGATIVE)
[2017-07-10] MEDS ORDERED: SODIUM CHLORIDE 0.9% 1,000 ML IV ONE (12:25)
[2017-07-10 12:26] LABS: UA CHARGE (STRIP ONLY) YES; UR CULTURE IF IND NOT INDICATED
[2017-07-10] MEDS ORDERED: ONDANSETRON ODT 4 MG TABLET TL PRN (15:02)
[2017-07-10] MEDS ORDERED: SODIUM CHLORIDE FLUSH 0.9% 10 ML SYRINGE IVP PRN (15:02)
[2017-07-10] MEDS ORDERED: ACETAMINOPHEN 325 MG TABLET PO PRN (15:02)
[2017-07-10] MEDS ORDERED: FLUDROCORTISONE 0.1 MG TABLET PO ONE (16:00)
[2017-07-10] MEDS: SODIUM CHLORIDE FLUSH 0.9% 10 ML SYRINGE IVP SCH (16:17)
[2017-07-10] MEDS: NS W/20 MEQ KCL 1,000 ML IV SCH (16:18)
[2017-07-10] MEDS: POTASSIUM CHLORIDE 20 MEQ TABLET PO SCH ×2 (16:18→20:12)
[2017-07-10] MEDS: MAGNESIUM OXIDE 400 MG TABLET PO SCH (16:18)
[2017-07-10 16:27] LABS: IMMATURE RETIC FRACTION 0.37; RED BLOOD COUNT 3.71 10^6/uL (4.70-6.10)
[2017-07-10 16:49] LABS: IRON 106 ug/dL (45-182); TOTAL IRON BINDING CAPACITY 323 ug/dL (250-450); TRANSFERRIN 231 mg/dL (180-329)
[2017-07-10 17:28] LABS: FERRITIN 172.2 ng/mL (23.9-336.2)
[2017-07-10] MEDS ORDERED: MIDODRINE HCL 10 MG PO SCH (19:00)
[2017-07-10] MEDS ORDERED: CARBIDOPA PO SCH (19:00)
[2017-07-10] MEDS ORDERED: LEVODOPA PO SCH (19:00)
[2017-07-10] MEDS ORDERED: MIDODRINE HCL PO SCH (19:00)
[2017-07-10] MEDS: CARBIDOPA PO SCH (19:32)
[2017-07-10] MEDS: MIDODRINE HCL 5 MG PO SCH (19:32)
[2017-07-10] MEDS: LEVODOPA PO SCH (19:32)
--- NOTE | 2017-07-10 19:39 | HISTORY & PHYSICAL EXAMINATION ---
DATE OF ADMISSION: 07/10/2017 CHIEF COMPLAINT: Syncopal episode with fall. HISTORY OF PRESENT ILLNESS: The patient is a very pleasant 77-year-old gentleman with a history of P arkinson's, hypertension, hyperlipidemia, coronary artery disease, past myocardial infarction, acid r eflux, osteoarthritis, and chronic vision loss. He presented to the ER today after complaining of a recent fall and syncopal episode. The patient states he has had an underlying longstanding history o f paroxysmal orthostatic hypotension related to his Parkinson disease and is Florinef and Midrin. Th e patient states that he was in his usual state of health over the last few days after he was dischar caesar from a recent admission for diarrhea and electrolyte imbalances. He was feeling lightheaded and weak when he tried to stand up. The patient states he went to his physical therapy and ended up havi ng a syncopal event when working with his physical therapist. The patient states that since then he has had a low blood pressure upon sitting and standing. Today, however, he stood up from a sitting p osition. He got dizzy and lightheaded, and he fell and hit his head. The patient had some mild neck pain. He also had right hip and posterior pelvic pain. He had no chest pain or shortness of breath . He does take Plavix. He denies fever, cough, nausea, vomiting, diarrhea, bloody or black tarry st ools, or any urinary symptoms. He does have a known history of prostate cancer with seeding done shaheed roximately 15 to 20 years prior. The patient was evaluated in the ER. He was receiving IV fluids with 1 liter of normal saline at danita t time. His states that this is a chronic condition for him. It just seems that recently over the last few days he has become a little bit more unsteady on his feet. He has been taking his usual medications. However, he did not take his Florinef or his carbidopa/levodopa over the last two or t hree days only because he had phoned into the hospital and was under the understanding he was suppose d to stop those medications. However, he did continue on all the other medications. The patient silvestre l be admitted for mild kidney injury. BUN today was elevated at 22, with a creatinine of 1.3. When he was discharged approximately a little over a week ago, his creatinine was 0.8. ALLERGIES: MORPHINE. HOME MEDICATIONS 1. Carbidopa/levodopa. 2. Donepezil. 3. Florinef 0.1 mg p.o. every p.m. 4. Plavix 75 mg p.o. at night. 5. Lotrisone propionate 2 sprays nasal daily. 6. Midrin 10 mg p.o. at 0800 hours, 1300 hours, and 1900 hours. 7. Foltx tablet 1 each p.o. daily. 8. Vitamin D 5000 units daily. 9. Magnesium oxide 400 mg p.o. daily with meals. 10. Multivitamin 1 each p.o. daily. 11. [place]-3 with 1 gram p.o. daily. 12. Potassium chloride 20 mEq p.o. q.i.d. 13. Zoloft 100 mg p.o. daily. 14. Flomax 0.4 mg p.o. at night. 15. Simvastatin 20 mg 1 tab p.o. at night. 16. Florastor 250 mg p.o. b.i.d. PAST MEDICAL HISTORY: Includes hypertension, hyperlipidemia, coronary artery disease with atheroscle rotic heart disease, myocardial infarction, Parkinson's, GERD, chronic vision loss, and osteoarthriti s. PAST SURGICAL HISTORY: Includes appendectomy, hiatal hernia repair, coronary stent placement, catara cts, tonsils, and adenoidectomy. SOCIAL HISTORY: The patient is still . He is retired. He does not drink alcohol. He was a former smoker. The patient is a FULL CODE and does not have a POLST completed. FAMILY HISTORY: Past family history was reviewed with the patient. Both parents are , and corbin morgan did have a history of coronary artery disease. REVIEW OF SYSTEMS: Ten systems have been reviewed and are negative, with the exceptions that were di scussed in the HPI prior. PHYSICAL EXAMINATION CONSTITUTIONAL: The patient is alert, in no acute distress. EYES: Pupils are equal, round, and reactive to light and accommodation. Conjunctivae and sclerae ar e non-icteric and not injected. ENT: Nares are patent. No nasal discharge. Oropharynx is with no masses, exudates, or lesions. Mu cous membranes are dry. NECK: Supple. No thyromegaly. Trachea is midline. CARDIOVASCULAR: S1 and S2 are noted. No gallops, murmurs, or rubs. Normal PMI. No JVD. RESPIRATORY: Breath sounds are clear and equal bilaterally to auscultation and percussion. No retra ctions or nasal flaring. No increased work of breathing. GASTROINTESTINAL: Abdomen is soft and nontender. Bowel sounds are present. No guarding or rebound tenderness. MUSCULOSKELETAL/EXTREMITIES: The patient has full range of motion of the upper and lower extremities . He does have multiple ecchymoses on the upper left and right upper extremities. Motor is 5/5 in t he lower extremities. PSYCHIATRIC: Appears appropriate. Normal affect. Pleasant mood and cooperative. HEMATOLOGIC: No active bleeding. The patient is hemodynamically stable. LYMPHATIC: No cervical, axillary, or supraclavicular lymphadenopathy is noted. SKIN: Warm, dry, and intact. Normal turgor. No evidence of rashes, lesions, or cellulitis. Multip le ecchymoses on the upper left and right extremities. VITAL SIGNS: Temperature 36.6. Heart rate 71. Respirations 16. Blood pressure 121/70. Oxygen sat uration 99%. LABORATORY AND DIAGNOSTIC DATA: I personally reviewed all laboratory and diagnostic data in the [facility] records. The results are as follows: 1. EKG: Normal sinus rhythm, with a normal TN interval, normal axis, nonspecific changes, and flat T -waves laterally. 2. Laboratory tests revealed WBCs 6.1. Abnormals include hemoglobin 12.4, MCV 19.9, BUN 22, creatini ne 1.3, estimated GFR 53, and total bilirubin 1.1. Troponin was less than 0.04. Urinalysis was unre markable. 3. A CT of the cervical spine showed no acute fracture, with C7 incomplete. 4. Chest x-ray showed no acute infiltrate, pneumothorax, or effusion. 5. A CT of the pelvis showed no fracture. IMPRESSION AND PLAN 1. Acute mild dehydration secondary to acute kidney injury with status post fall with a syncopal epis ode underneath PLAN: The patient does have a history of orthostatic hypotension. He does take Florinef and Midrin. For this, he also has a longstanding history with Parkinson disease. The patient will be placed on fall precautions. He will be hydrated with intravenous fluids with normal saline at 100 mL an hour, 2 liters. Orthostatic vital signs requested. We will continue Florinef and Midrin. We will contin ue to monitor electrolytes closely, including potassium. He will continue on a potassium supplement daily. Telemetry monitoring. We will request a Physical Therapy assessment for baseline. 2. Chronic Parkinson disease. PLAN a. We will continue on home medication of carbidopa/levodopa 4 caplets p.o. 3 times a day. b. We will continue to work with Physical and Occupational Therapies. 3. Atherosclerotic heart disease of cahto coronary artery with stent placement. PLAN: We will continue on [place]-3 and Lovaza. The patient requests to stop the Plavix at this time due to the recent fall and all the multiple ecchymoses on the extremities. We will continue on multi vitamin and potassium supplementation. 4. Chronic gastroesophageal reflux. PLAN: The patient is on a probiotic which will continue, Florastor. 5. Chronic osteoarthritis with a recent fall at home, same level. PLAN: We will continue to monitor with fall precautions and continue on vitamin D supplement, with m ultivitamin, including calcium supplementation. Continue on magnesium oxide. Physical Therapy asses sment and assist with walking. 6. Hyperlipidemia. PLAN: We will continue on [place]-3. We will hold simvastatin. The patient states that he has had mo re muscle weakness lately, which this could be contributing to it. 7. Chronic urinary retention, with a history of prostate cancer and seeding. PLAN: We will continue with the Flomax. Continue to monitor output and kidney function. 8. CODE STATUS: The patient is FULL CODE status. 9. The patient is high risk for worsening comorbidities. He will require at least a two-midnight sta y. He will need IV medication, with a high risk for toxicity, and additional diagnostics. An MRI/MR A has been requested by the since the patient has had frequent falls and syncopal episodes. He has never had a formal workup for a syncopal episode for TIA/CVA. TIME SPENT: The time spent with the assessment for planning and evaluation was 50 minutes. JOB #: [id number] EXT JOB #:[id number]
[2017-07-10] MEDS: FLUTICASONE NASAL SPRAY NAS ONE ×2 (20:11→20:15)
[2017-07-10] MEDS: CHOLECALCIFEROL 5,000 UNIT CAPSULE PO SCH (20:11)
[2017-07-10] MEDS: OMEGA-3 ACID ETHYL ESTERS 1 GM CAPSULE PO SCH (20:11)
[2017-07-10] MEDS ORDERED: FLUDROCORTISONE 0.1 MG TABLET PO SCH (21:00)
[2017-07-10] MEDS ORDERED: DONEPEZIL 5 MG TABLET PO SCH (21:00)
[2017-07-11] MEDS: NS W/20 MEQ KCL 1,000 ML IV SCH ×2 (01:54→10:53)
[2017-07-11] MEDS: SODIUM CHLORIDE FLUSH 0.9% 10 ML SYRINGE IVP SCH ×2 (05:04→13:35)
[2017-07-11 06:23] LABS: BASOPHILS # (AUTO) 0.1 10^3/uL (0.0-0.1); BASOPHILS % (AUTO) 2.1 %; EOSINOPHILS # (AUTO) 0.5 10^3/uL (0.0-0.7); HGB - HEMOGLOBIN 11.3 g/dL (14.0-18.0); MEAN PLATELET VOLUME 8.5 fL (7.4-11.4); MONOCYTES # (AUTO) 0.3 10^3/uL (0.0-1.0); NEUTROPHILS # (AUTO) 1.6 10^3/uL (1.5-6.6); NUCLEATED RED BLOOD CELLS AUTO 0.1 /100WBC; UNCORRECTED WHITE BLOOD COUNT 3.9 x10^3/uL; WHITE BLOOD COUNT 3.9 x10^3/uL (4.8-10.8)
[2017-07-11 06:25] LABS: EOSINOPHILS % (AUTO) 11.8 %; HCT - HEMATOCRIT 33.6 % (42.0-52.0); LYMPHOCYTES # (AUTO) 1.4 10^3/uL (1.5-3.5); LYMPHOCYTES % (AUTO) 37.4 %; MEAN CORPUSCULAR HEMOGLOBIN 34.1 pg (27.0-31.0); MEAN CORPUSCULAR HGB CONC 33.8 g/dL (32.0-36.0); MEAN CORPUSCULAR VOLUME 100.8 fL (80.0-94.0); MONOCYTES % (AUTO) 8.2 %; NEUTROPHILS % (AUTO) 40.5 %; RED BLOOD COUNT 3.33 10^6/uL (4.70-6.10); RED CELL DISTRIBUTION WIDTH 14.6 % (12.0-15.0)
[2017-07-11 06:37] LABS: ALBUMIN/GLOBULIN RATIO 1.4 (1.0-2.2); BILIRUBIN,TOTAL 0.9 mg/dL (0.2-1.0); BUN - BLOOD UREA NITROGEN 18 mg/dL (6-20); CALCIUM 8.6 mg/dL (8.5-10.3); CARBON DIOXIDE - CO2 26 mmol/L (21-32); CHLORIDE 109 mmol/L (101-111); GFR - MDRD 72 (>89); GLUCOSE 85 mg/dL (70-100); POTASSIUM 3.9 mmol/L (3.5-5.0); SODIUM 141 mmol/L (135-145); TOTAL PROTEIN 5.6 g/dL (6.7-8.2)
[2017-07-11] MEDS ORDERED: PRENATAL VITAMIN TABLET PO SCH (08:00)
[2017-07-11] MEDS: CHOLECALCIFEROL 5,000 UNIT CAPSULE PO SCH (08:53)
[2017-07-11] MEDS: MAGNESIUM OXIDE 400 MG TABLET PO SCH (08:53)
[2017-07-11] MEDS: OMEGA-3 ACID ETHYL ESTERS 1 GM CAPSULE PO SCH (08:54)
[2017-07-11] MEDS: POTASSIUM CHLORIDE 20 MEQ TABLET PO SCH ×2 (08:55→13:34)
[2017-07-11] MEDS: CARBIDOPA PO SCH ×2 (08:56→13:35)
[2017-07-11] MEDS: LEVODOPA PO SCH ×2 (08:56→13:35)
[2017-07-11] MEDS: MIDODRINE HCL 5 MG PO SCH ×2 (08:57→13:35)
[2017-07-11] MEDS ORDERED: B12 PO SCH ×2 (09:00)
[2017-07-11] MEDS ORDERED: B6 PO SCH ×2 (09:00)
[2017-07-11] MEDS ORDERED: LEVOMEFOLATE CALCIUM PO SCH ×2 (09:00)
[2017-07-11] MEDS ORDERED: FLUTICASONE NASAL SPRAY NAS SCH (09:00)
[2017-07-11] MEDS ORDERED: ENOXAPARIN 40 MG/0.4 ML SYRINGE SUBQ SCH (09:00)
[2017-07-11] MEDS ORDERED: POLYETHYLENE GLYCOL 3350 17 GM PACKET PO SCH (09:00)
[2017-07-11] MEDS ORDERED: SERTRALINE 50 MG TABLET PO SCH (09:00)
--- NOTE | 2017-07-11 11:02 | Discharge Plan ---
Discharge Plan Disposition: 01 Home, Self Care Condition: Good Prescriptions: Potassium Chloride [K-Dur] 20 meq PO DAILY #30 tablet Droxidopa [Northera] 100 mg PO BID #60 capsule Diet: Cardiac Activity Restrictions: Activity as Tolerated Shower Restrictions: No Driving Restrictions: No Assistance Devices: Walker Weight Bearing: Full Weight Instruction Topics: Parkinson Disease Dc, ED Hypotension Orthostatic Additional Instructions or Follow Up instructions: PLEASE SEE DR JIMENEZ AT 2:15PM ON 2016. THE OFFICE KNOWS YOU WERE PUT ON A NEW MEDICATION FOR YOUR HYPOTENSION. YOU NEED TO BRING YOUR MEDICATION RECONCILIATION WITH YOU TOMORROW. YOU HAVE BEEN TAKEN OFF THE PLAVIX AND STATIN SINCE YOU HAVE MUSCLE WEAKNESS AND BRUISING. YOU WILL NEED TO CONTINUE THE OTHER MEDICATIONS AND SUPPLEMENTS PRESCRIBED. YOU CAN REDUCE YOUR VITAMIN D TO ONCE A DAY. YOU NEED TO DRINK PLENTY OF WATER DURING THE DAY. 8 LARGE GLASSES IS GOOD AND MAKE SURE YOUR URINE IS CLEAR AND PALE. YOU WILL NEED TO CONTINUE TO USE YOUR WALKER WHEN YOU ARE WALKING TO HELP AVOID FALLING. MAKE SURE TO STAND UP SLOWLY AND WITH ASSISTANCE SO YOU DONT GET DIZZY GET YOUR LABS CHECKED WITHIN THE NEXT TWO WEEKS TO MAKE SURE YOUR POTASSIUM AND MAGNESIUM ARE AT NORMAL LEVELS. YOU NEED TO COME BACK TO THE ER IF YOU HAVE CHEST PAIN OR SHORTNESS OF BREATH THAT WILL NOT RESOLVE CALL [phone]. Follow-Up Care: Outpatient Rehab - PT No Smoking: If you smoke, Please STOP! Call for help. Follow-up with: Familia Jimenez MD [Primary Care Provider] -
--- NOTE | 2017-07-11 11:06 | DISCHARGE SUMMARY ---
"Discharge Summary Admit Date: 07/10/17 Discharge Date: 07/11/17 Discharging Provider: WEI GARCIA APRN Code Status: Attempt Resuscitation Condition at Discharge: Good Discharge Disposition: 01 Home, Self Care Discharge Facility Name: HOME - DIAGNOSES Admission Diagnoses: 1. Acute fall same level secondary to paroxysmal orthostatic hypotension 2. Acute dehydration secondary to acute kidney injury 3. Chronic weakness with Parkinsons Disease 4. Chronic CAD Discharge Diagnoses with Status of Each Condition: 1. Acute fall same level secondary to paroxysmal orthostatic hypotension 2. Acute dehydration secondary to acute kidney injury 3. Chronic weakness with Parkinsons Disease 4. Chronic CAD - HPI History of Present Illness: History of Present Illness - Stated complaint Stated Complaint: SYNCOPE - Additonal information Additional information: hx from pt 77 male recent admit for diarrhea and low BP since dc no more diarrhea but continued to have low BP upon sitting / standing numerous syncopal episodes and results falls 2/2 same hit head on plavix has neck pain also R hip and posterior pelvis pain no CP or AP denies fever cough NVD bloody black stools and urinary sx - CONSULTS | PROCEDURES Consultations: NONE Procedures: MRA/MRI OF NECK AND BRAIN: IMPRESSION SHOWS - HOSPITAL COURSE Hospital Course: 1. Acute fall same level secondary to paroxysmal orthostatic hypotension 2. Acute dehydration secondary to acute kidney injury 3. Chronic weakness with Parkinsons Disease 4. Chronic CAD 5. Mild maxillary sinus congestion, acute - ALLERGIES Allergies/Adverse Reactions: Allergies Allergy/AdvReac Type Severity Reaction Status Date / Time morphine Allergy Hallucinati Verified 06/25/17 19:16 ons - MEDICATIONS Home Medications: Ambulatory Orders Medication Instructions Recorded Confirmed Carbidopa/Levodopa [Rytary ER 4 cap PO 0800,1300,1900 05/31/16 07/10/17 23.75 mg-95 mg Cap] Donepezil HCl 10 mg PO DAILY 05/31/16 07/10/17 Fludrocortisone [Florinef] 0.1 mg PO QPM 12/22/16 06/26/17 Fluticasone Propionate 2 spray LISE DAILY 06/25/17 07/11/17 Midodrine HCl 10 mg PO 0800,1300,1900 06/26/17 07/10/17 B12/Levomefolate Calcium/B-6 1 each PO DAILY #30 tablet 07/01/17 07/10/17 [Foltx Tablet] Cholecalciferol [Vitamin D3] 5,000 unit PO BID #60 capsule 07/01/17 07/11/17 Magnesium Oxide [Mag Ox] 400 mg PO DAILYWM #60 tablet 07/01/17 07/11/17 Multivitamin-Min/Iron/FA/Vit K 1 each PO DAILY #30 tablet 07/01/17 07/11/17 [Multi-Day Plus Minerals Tablet] Potassium Chloride [K-Dur] 20 meq PO QID #30 tablet 07/01/17 07/10/17 Sertraline HCl 100 mg PO DAILY 07/10/17 07/10/17 Tamsulosin HCl 0.4 mg PO QPM 07/10/17 07/10/17 Droxidopa [Northera] 100 mg PO BID #60 capsule 07/11/17 Stratford-3 Acid Ethyl Esters [Lovaza] 1 gm PO BID capsule 07/11/17 Stratford-3 Fatty Acids/Fish Oil [Fish 1,000 mg PO BID 07/11/17 07/11/17 Oil 1,000 mg Softgel] Potassium Chloride [K-Dur] 20 meq PO DAILY #30 tablet 07/11/17 - PHYSICAL EXAM AT DISCHARGE General Appearance: positive: No acute distress, Alert Eyes Bilateral: positive: Normal inspection, PERRL, EOMI ENT: positive: ENT inspection nml, Pharynx nml, No signs of dehydration Neck: positive: Nml inspection, Thyroid nml, No JVD, Trachea midline Respiratory: positive: Chest non-tender, No respiratory distress, Breath sounds nml Cardiovascular: positive: Regular rate & rhythm, No murmur, No gallop Peripheral Pulses: positive: 2+ Abdomen: positive: Non-tender, No organomegaly, Nml bowel sounds, No distention Back: positive: Nml inspection Skin: positive: Color nml, No rash, Warm, Dry, Other (ECHYMOSIS TO UPPER EXTREMITIES) Extremities: positive: Non-tender Neurologic/Psychiatric: positive: Oriented x3, CN's nml (2-12), Motor nml, Sensation nml, Mood/affect nml - LABS Result Diagrams: 07/11/17 06:13 07/11/17 06:13 Other Lab Results: Abnormal Lab Results 07/10/17 07/10/17 07/10/17 10:35 10:35 11:35 WBC RBC 3.71 10^6/uL L 10^6/uL 3.71 10^6/uL L 10^6/uL (4.70-6.10) (4.70-6.10) Hgb 12.4 g/dL L g/dL (14.0-18.0) Hct 37.1 % L % (42.0-52.0) MCV 99.9 fL H fL (80.0-94.0) MCH 33.3 pg H pg (27.0-31.0) Lymph # 1.0 10^3/uL L 10^3/uL (1.5-3.5) BUN Creatinine Estimated GFR (MDRD) Total Bilirubin ALT Total Protein Lipase Vitamin B12 1158 pg/mL H pg/mL (180-914) 07/10/17 07/11/17 07/11/17 11:35 06:13 06:13 WBC 3.9 x10^3/uL L x10^3/uL (4.8-10.8) RBC 3.33 10^6/uL L 10^6/uL (4.70-6.10) Hgb 11.3 g/dL L g/dL (14.0-18.0) Hct 33.6 % L % (42.0-52.0) MCV 100.8 fL H fL (80.0-94.0) MCH 34.1 pg H pg (27.0-31.0) Lymph # 1.4 10^3/uL L 10^3/uL (1.5-3.5) BUN 21 mg/dL H mg/dL (6-20) Creatinine 1.3 mg/dL H mg/dL (0.6-1.2) Estimated GFR (MDRD) 53 L 72 L (>89) (>89) Total Bilirubin 1.1 mg/dL H mg/dL (0.2-1.0) ALT < 10 IU/L L IU/L < 10 IU/L L IU/L (10-60) (10-60) Total Protein 5.6 g/dL L g/dL (6.7-8.2) Lipase 140 U/L H U/L (22-51) Vitamin B12 - DIAGNOSTIC IMAGING Diagnostic Imaging Results: Final report reviewed - FOLLOW UP Follow Up: PATIENT WAS INSTRUCTED TO SEE DR HARTLEY TOMORROW AT 2:15 ON 2016. HE WAS PLACED ON A NEW MEDICATIONS FOR ORTHOSTATIC HYPOTENSION- NORTHERA AT 100MG BID. HE WAS GIVEN PRESCIPTION FOR ONE MONTH SUPPLY. HE WAS INSTRUCTED TO CONTINUE ON ALL HOME MEDICATIONS PRESCRIBED WITHOUT THE PLAVIX AND STATIN. HE UNDERSTANDS HE IS TO CONTINUE ON ALL THE OTHER MEDICATIONS INCLUDING THE FLORINEF AND CARBIDOPA/LEVADOPA. HE IS TO CONTINUE TO EAT A HEART HEALTHY DIET AND DRINK MORE WATER DURING THE DAY HE IS TO RETURN TO THE ER IF THE SYMPTOMS WORSEN OR HE HAS CHEST PAIN OR SHORTNESS OF BREATH - TIME SPENT Time Spent in Discharge (Minutes): 45 (FOR DISCHARGE PLANNING AND ASSESSMENT AND PLANNING)"
--- NOTE | 2017-07-11 12:51 | MRI Preliminary Report ---
Exam: MRI Brain W/O IMPRESSION: 1. No evidence of acute or subacute infarct, intracranial hemorrhage, mass, midline shift, or hydroce phalus. 2. Scattered T2/FLAIR hyperintense periventricular, subcortical, and deep white matter lesions within the cerebral hemispheres bilaterally and within the manav centrally. While nonspecific, these are fav ored to represent sequela of chronic microangiopathy. [facility] SITE ID: [id number]
--- NOTE | 2017-07-11 12:54 | MRI Report ---
EXAM: MRI BRAIN WITHOUT CONTRAST EXAM DATE: 07/11/2017 11:44 AM. CLINICAL HISTORY: Syncope and worsening ability to stand with fall. COMPARISON: CT head 07/10/2017 TECHNIQUE: Multiplanar, multisequence T1-weighted and fluid-sensitive MR sequences of the brain were performed. Sequences optimized for routine evaluation. Other: None. IV Contrast: None. FINDINGS: Brain Volume: Normal for age. Parenchyma/Dura: No masses, infarcts, or hemorrhage. Scattered T2/FLAIR hyperintense periventricular, subcortical, and deep white matter lesions within the cerebral hemispheres bilaterally and within th e manav centrally. No parenchymal microhemorrhages. Ventricles/Cisterns: Normal. No hydrocephalus. Sinuses: Mild mucosal thickening bilateral maxillary sinuses. Bones: Normal. Other: Status post bilateral lens replacement surgery. The visualized orbits are otherwise unremarkab le. Moderate mastoid fluid bilaterally. IMPRESSION: 1. No evidence of acute or subacute infarct, intracranial hemorrhage, mass, midline shift, or hydroce phalus. 2. Scattered T2/FLAIR hyperintense periventricular, subcortical, and deep white matter lesions within the cerebral hemispheres bilaterally and within the manav centrally. While nonspecific, these are fav ored to represent sequela of chronic microangiopathy. [facility] Referring Provider Line: [phone] SITE ID: [id number]
--- NOTE | 2017-07-11 12:56 | MRI Preliminary Report ---
Exam: MRI Angio Brain W/O (MRA) IMPRESSION: 1. No hemodynamically significant stenosis, dissection, occlusion, aneurysm, or vascular malformation within the intracranial arteries. 2. 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 3. The left posterior complicating artery is not clearly visualized, likely hypoplastic or aplastic. [facility] SITE ID: [id number]
--- NOTE | 2017-07-11 12:58 | MRI Report ---
EXAM MRA BRAIN EXAM DATE: 07/11/2017 11:16 AM. CLINICAL HISTORY: Falls and syncope. COMPARISON: None. TECHNIQUE: Multiplanar, multisequence MRA sequences of the brain were performed. Other: None. Post-pr ocessing: Multiplanar 3D MIP reconstructions. IV Contrast: None. FINDINGS: RIGHT Internal Carotid (ICA): No aneurysm, stenosis or anomaly. Middle Cerebral (MCA): No aneurysm, stenosis or anomaly. Anterior Cerebral (DOMINIC): No aneurysm, stenosis or anomaly. Posterior Cerebral (TAX ASSOCIATE): The P1 segment of the right TAX ASSOCIATE is not visualized, prominent right posterio r, thickening artery primarily supplies the right TAX ASSOCIATE which is otherwise unremarkable. Posterior Communicating (P-COM): No aneurysm, stenosis or anomaly. Vertebral: No aneurysm, stenosis or anomaly in the visualized upper vertebral artery. LEFT Internal Carotid (ICA): No aneurysm, stenosis or anomaly. Middle Cerebral (MCA): No aneurysm, stenosis or anomaly. Anterior Cerebral (DOMINIC): No aneurysm, stenosis or anomaly. Posterior Cerebral (TAX ASSOCIATE): No aneurysm, stenosis or anomaly. Posterior Communicating (P-COM): The left posterior communicating artery is not visualized, likely hy poplastic or aplastic. Vertebral: No aneurysm, stenosis or anomaly in the visualized upper vertebral artery. MIDLINE Anterior Communicating (A-COM): No aneurysm, stenosis or anomaly. Other: None. IMPRESSION: 1. No hemodynamically significant stenosis, dissection, occlusion, aneurysm, or vascular malformation within the intracranial arteries. 2. origin of the right TAX ASSOCIATE. 3. The left posterior complicating artery is not clearly visualized, likely hypoplastic or aplastic. [facility] Referring Provider Line: [phone] SITE ID: [id number]
--- NOTE | 2017-07-11 13:02 | MRI Preliminary Report ---
Exam: MRI Angio Neck W/O (MRA) IMPRESSION: 1. Somewhat limited MRA examination of the neck due to absence of intravenous contrast material. Give n this limitation, no definite hemodynamically significant stenoses, dissections, occlusions, aneurys ms or vascular malformations. Evaluation of carotid stenosis is by NASCET criteria . 2. Likely in plane saturation resulting in loss of flow-related enhancement involving the V3 segments of the vertebral arteries bilaterally, likely not true stenosis/occlusion. 3. Concurrently obtained MRA of the head is dictated separately. [facility] SITE ID: [id number]
--- NOTE | 2017-07-11 13:05 | MRI Report ---
EXAM: MR ANGIOGRAM NECK EXAM DATE: 07/11/2017 11:45 AM. CLINICAL HISTORY: Fall and loc with syncope. COMPARISON: None. TECHNIQUE: Multiplanar, multisequence MRA sequences of the neck were performed. Other: None. Post-pro cessing: Multiplanar 3D MIP reconstructions. IV Contrast: Without. Evaluation of arterial stenosis i s based on a NASCET method of measurement. FINDINGS: RIGHT Common Carotid: Patent. No dissection or significant stenosis. Internal Carotid: Patent. No dissection or significant stenosis. External Carotid: Patent. No dissection or significant stenosis. Vertebral: Patent. No dissection or significant stenosis. There is likely in plane saturation with lo ss of flow-related enhancement involving the V3 segment of the right vertebral artery. LEFT Common Carotid: Patent. No dissection or significant stenosis. Internal Carotid: Patent. No dissection or significant stenosis. External Carotid: Patent. No dissection or significant stenosis. Vertebral: Patent. No dissection or significant stenosis. There is likely in plane saturation with l oss of flow-related enhancement involving the V3 segment of the left vertebral artery. Intracranial Circulation: Concurrently obtained MRA of the head is dictated separately. Other: The soft tissues, bones, and lung apices are within normal limits. IMPRESSION: 1. Somewhat limited MRA examination of the neck due to absence of intravenous contrast material. Give n this limitation, no definite hemodynamically significant stenoses, dissections, occlusions, aneurys ms or vascular malformations. Evaluation of carotid stenosis is by NASCET criteria . 2. Likely in plane saturation resulting in loss of flow-related enhancement involving the V3 segments of the vertebral arteries bilaterally, likely not true stenosis/occlusion. 3. Concurrently obtained MRA of the head is dictated separately. [facility] Referring Provider Line: [phone] SITE ID: [id number]
[2017-07-11 14:27] VITALS: BP 128/60
== END 2017-07-11 14:34 | disposition home or self-care (01) | DRG 641 ==
LOC: EDUNIT# → ED 09:38 → MS2 14:14
PROVIDERS: ADMIT Nurse Practitioner; ATTEND Nurse Practitioner
DX: E86.0 Dehydration (principal); N17.9 Acute kidney failure, unspecified; I95.1 Orthostatic hypotension; G20 Parkinson's disease; I25.10 Atherosclerotic heart disease of native coronary artery without angina pectoris; S40.022A Contusion of left upper arm, initial encounter; I10 Essential (primary) hypertension; S40.021A Contusion of right upper arm, initial encounter; M54.2 Cervicalgia; M25.551 Pain in right hip; R10.2 Pelvic and perineal pain; W19.XXXA Unspecified fall, initial encounter; E78.5 Hyperlipidemia, unspecified; K21.9 Gastro-esophageal reflux disease without esophagitis; M19.90 Unspecified osteoarthritis, unspecified site; R33.9 Retention of urine, unspecified; I25.2 Old myocardial infarction; Z85.46 Personal history of malignant neoplasm of prostate; Z79.02 Long term (current) use of antithrombotics/antiplatelets; Z79.899 Other long term (current) drug therapy; Z95.5 Presence of coronary angioplasty implant and graft; Z87.891 Personal history of nicotine dependence; Z91.81 History of falling
CPT/HCPCS: 36415; 70450; 70544; 70547; 70551; 71010; 72125; 72192; 80053; 81001; 81003; 82607; 82668; 82728; 83540; 83605; 83615; 83690; 83735; 84466; 84484; 85025; 85044; 87040; 87086; 93005; 96360; 96361; 99284; 99285

== ENCOUNTER 2017-08-01 08:00 | Outpatient (CLI) | payer MEDICARE, OTHER ==
[2017-08-01 14:27] LABS: CALCIUM 9.2 mg/dL (8.5-10.3); CREATININE 1.1 mg/dL (0.6-1.2); MAGNESIUM 2.1 mg/dL (1.7-2.8); POTASSIUM 4.3 mmol/L (3.5-5.0)
== END 2017-08-01 08:01 | disposition home or self-care (01) ==
LOC: LAB.WCP 08:00
PROVIDERS: ATTEND Family Medicine
DX: G20 Parkinson's disease (principal); I95.9 Hypotension, unspecified; E87.6 Hypokalemia
CPT/HCPCS: 36415; 80048; 83735

== ENCOUNTER 2018-03-15 17:10 | Outpatient (CLI) | payer MEDICARE, OTHER | END 2018-03-15 17:11 | disposition short-term general hospital (02) | LOC: EMS 17:10 | PROVIDERS: ATTEND Surgery | DX: R29.6 Repeated falls (principal); R19.7 Diarrhea, unspecified; R53.1 Weakness | CPT/HCPCS: A0425; A0427 ==

== ENCOUNTER 2018-12-30 02:13 | Outpatient (CLI) | payer MEDICARE, OTHER | END 2018-12-30 02:14 | disposition critical access hospital (66) | LOC: EMS 02:13 | PROVIDERS: ATTEND Surgery | DX: R20.0 Anesthesia of skin (principal); R20.2 Paresthesia of skin; R53.1 Weakness; R26.89 Other abnormalities of gait and mobility; M25.512 Pain in left shoulder; M25.511 Pain in right shoulder | CPT/HCPCS: A0425; A0429 ==

== ENCOUNTER 2018-12-30 02:30 | Inpatient (IN) | payer MEDICARE, OTHER ==
[2018-12-30] MEDS ORDERED: SODIUM CHLORIDE 0.9% 1,000 ML IV ONE (02:55)
--- NOTE | 2018-12-30 02:58 | ED Physician Documentation ---
PD HPI FOCAL NEURO - Stated complaint Stated Complaint: WEAKNESS/RT SIDE NUMBNESS - Chief complaint Chief Complaint: General - History obtained from History obtained from: Patient, EMS - History of Present Illness Timing - onset: How many weeks ago (1) Timing - duration: Weeks (1) Timing - details: Gradual onset, Still present Time of symptom onset unknown: Time of onset unknown Severity of deficit: Moderate Weakness: Arm, Hand, Leg, Foot, Right Numbness: Arm, Hand Associated symptoms: No: Headache, Nausea / vomiting, Seizure, Syncope Contributing factors: positive: Other (hx of parkinsons). negative: Anticoagulated Baseline status: positive: A&OX3, ambulatory, indep Similar symptoms before: Has not had sx before Recently seen: Clinic - Additional information Additional information: 78-year-old male with history of Parkinson's disease has had right-sided weakness for the past 2 years and this is substantially worse in the last 2 days. He is now not able to feed himself and is unable to walk without falling. He has had numerous falls within the past 2 weeks and has been evaluated in the emergency department at [facility] 1 week ago. At that time he had CT scan of his head and chest x-ray done. He is having a lot of pain in his left shoulder and feels like he may have broken this. This was not evident on x-rays done last week but he has had more falls in between these times. Family presents with the patient and indicates that he is also having some hallucinations and delusions. They are concerned they are not able to care for him at home. They indicate that he has been weak on the right side this is profoundly worse now Review of Systems Constitutional: reports: Fatigue. denies: Fever, Chills, Myalgias Eyes: denies: Decreased vision Ears: denies: Ear pain Nose: denies: Rhinorrhea / runny nose, Congestion Throat: denies: Sore throat Cardiac: denies: Chest pain / pressure, Palpitations Respiratory: denies: Dyspnea, Cough GI: denies: Abdominal Pain, Nausea, Vomiting : denies: Dysuria, Frequency Musculoskeletal: reports: Neck pain, Back pain, Extremity pain, Joint pain Neurologic: reports: Focal weakness, Numbness, Difficulty speaking. denies: Generalized weakness, Syncope, Seizure, Head injury, LOC Psychiatric: reports: Hallucinations PD PAST MEDICAL HISTORY - Past Medical History Cardiovascular: Hypertension, High cholesterol, Coronary artery disease, [place] Respiratory: None Neuro: Parkinson's Endocrine/Autoimmune: None GI: GERD : Other HEENT: Chronic vision loss Psych: None Musculoskeletal: Osteoarthritis Derm: None - Past Surgical History Past Surgical History: Yes General: Appendectomy, Hiatal hernia repair Cardiovascular: Coronary stent HEENT: Cataracts, Tonsil/Adenoidectomy - Present Medications Home Medications: Ambulatory Orders Medication Instructions Recorded Confirmed Carbidopa/Levodopa [Rytary ER 4 cap PO 0800,1300,1900 05/31/16 12/30/18 23.75 mg-95 mg Cap] Donepezil HCl 10 mg PO DAILY 05/31/16 12/30/18 Fluticasone Propionate 2 spray LISE DAILY 06/25/17 12/30/18 Midodrine HCl 10 mg PO 0800,1300,1900 06/26/17 12/30/18 Sertraline HCl 100 mg PO DAILY 07/10/17 12/30/18 Droxidopa [Northera] 600 mg PO 0800,1300,1900 12/30/18 12/30/18 Fludrocortisone [Florinef] 0.1 mg PO BID 12/30/18 12/30/18 Folbic 2.5-25-2 Mg 1 tab PO DAILY 12/30/18 12/30/18 Potassium Chloride 20 meq PO QID 12/30/18 12/30/18 - Allergies Allergies/Adverse Reactions: Allergies Allergy/AdvReac Type Severity Reaction Status Date / Time morphine Allergy Hallucinati Verified 12/30/18 02:39 ons - Social History Does the pt smoke?: No Smoking Status: Never smoker Does the pt drink ETOH?: No Does the pt have substance abuse?: No - Immunizations Immunizations are current?: Yes - POLST Patient has POLST: No POLST Status: Full Code PD ED PE NORMAL - Vitals Vital signs reviewed: Yes (hypertensive ) - General General: No acute distress, Well developed/nourished, Other (masked facies of parkinsons some dysarthric speech ) - HEENT HEENT: Atraumatic, PERRL, EOMI, Other - Neck Neck: Supple, no meningeal sign, No bony TTP, No JVD, No bruit - Cardiac Cardiac: RRR, No murmur - Respiratory Respiratory: No respiratory distress, Clear bilaterally - Abdomen Abdomen: Soft, Non tender - Back Back: No CVA TTP, No spinal TTP - Derm Derm: Normal color, Warm and dry, No rash - Extremities Extremities: No deformity, Other (There is tenderness to the left shoulder with any movement or palpation. ) - Neuro Neuro: Other (There is mild dysarthric speech, right sided weakness more evident in the right hand than the foot and no appreciated facial droop. ) Eye Opening: Spontaneous Motor: Obeys Commands Verbal: Oriented GCS Score: 15 - Psych Psych: Normal mood NIHSS - Time Time: 02:45 - Level of Consciousness Level of consciousness: (0) Alert, Keenly responsive LOC Questions: (0) Answers both Q's correct LOC Commands: (0) Performs both correctly - Gaze Best Gaze: (0) Normal - Visual Visual: (0) No loss - Facial Palsy Facial Palsy: (0) Normal, symmetrical movement - Motor Arms (both separate) Motor Arm (right): (1) Drift Motor Arm (left): (0) No drift - Motor Legs (both separate) Motor Leg (right): (1) Drift Motor Leg (left): (0) No drift - Limb Ataxia Limb Ataxia: (1) Present in 1 limb - Sensory Sensory: (1) [id number] loss - Best Language Best Language: (0) No aphasia - Dysarthria Dysarthria: (1) [id number] dysarthria - Extinction and Inattention (formally neg Extinction and inattention: (0) No abnormality - Total Score/Results Total Score/Result: 5 Results - Vitals Vitals: Vital Signs - 24 hr 12/30/18 12/30/18 12/30/18 07:00 09:00 10:33 Heart Rate 87 135 H 139 H Respiratory 22 19 Rate Blood Pressure 158/97 H 144/106 H 132/92 H O2 Saturation 97 98 12/30/18 12/30/18 11:09 11:18 Heart Rate 124 H 137 H Respiratory 19 22 Rate Blood Pressure 152/99 H 151/93 H O2 Saturation 97 98 Oxygen O2 Source Room air - EKG (time done) 0445 Rate: Rate (enter#) (68) Rhythm: NSR Ischemia: Non specific changes Compare to prior EKG: Unchanged from prior EKG ([id number] no changes) Computer interpretation: Agree with computer - Labs Labs: Laboratory Tests 12/30/18 12/30/18 12/30/18 03:26 03:26 03:26 WBC 5.6 RBC 3.42 L Hgb 11.8 L Hct 34.2 L MCV 99.8 H MCH 34.5 H MCHC 34.5 RDW 13.9 Plt Count 197 MPV 8.4 Neut # (Auto) 3.5 Lymph # (Auto) 1.3 L [place] # (Auto) 0.6 Eos # (Auto) 0.2 Baso # (Auto) 0.1 Absolute Nucleated RBC 0.00 Nucleated RBC % 0.1 Sodium 138 Potassium 3.1 L Chloride 101 Carbon Dioxide 26 Anion Gap 11.0 BUN 14 Creatinine 0.7 Estimated GFR (MDRD) 109 Glucose 101 H Lactic Acid Calcium 8.9 Total Bilirubin 1.3 H AST 34 ALT < 10 L Alkaline Phosphatase 140 H Troponin I < 0.04 Total Protein 6.6 L Albumin 3.7 Globulin 2.9 Albumin/Globulin Ratio 1.3 Lipase 26 Urine Color Urine Clarity Urine pH Ur Specific [place] Urine Protein Urine Glucose (UA) Urine Ketones Urine Occult Blood Urine Nitrite Urine Bilirubin Urine Urobilinogen Ur Leukocyte Esterase Ur Microscopic Review Urine Culture Comments 12/30/18 12/30/18 03:26 03:50 WBC RBC Hgb Hct MCV MCH MCHC RDW Plt Count MPV Neut # (Auto) Lymph # (Auto) [place] # (Auto) Eos # (Auto) Baso # (Auto) Absolute Nucleated RBC Nucleated RBC % Sodium Potassium Chloride Carbon Dioxide Anion Gap BUN Creatinine Estimated GFR (MDRD) Glucose Lactic Acid 0.9 Calcium Total Bilirubin AST ALT Alkaline Phosphatase Troponin I Total Protein Albumin Globulin Albumin/Globulin Ratio Lipase Urine Color YELLOW Urine Clarity CLEAR Urine pH 6.5 Ur Specific [place] 1.020 Urine Protein NEGATIVE Urine Glucose (UA) NEGATIVE Urine Ketones TRACE Urine Occult Blood NEGATIVE Urine Nitrite NEGATIVE Urine Bilirubin NEGATIVE Urine Urobilinogen 2 H Ur Leukocyte Esterase NEGATIVE Ur Microscopic Review NOT INDICATED Urine Culture Comments NOT INDICATED - Rads (name of study) CT head without Radiology: Prelim report reviewed (Impression: Generalized age related cortical atrophic changes without evidence of acute intracranial abnormality.), EMP read indepedently, See rad report Procedures - IVC sono (time) 0250 Bedside IVC sono: IVC measures (cm) (0.92), Dehydration (est 1-2 liter deficit) PD MEDICAL DECISION MAKING - ED course Complexity details: reviewed old records, reviewed results, re-evaluated patient, considered differential, d/w patient, d/w family ED course: 78-year-old male with advanced Parkinson's disease has had it saltatory increase in his right sided weakness and this is led to a number of falls and now the patient is unable to feed himself is unable to safely walk at home. The family notes the changes have been precipitous and probably about 2 days ago. On examination he appears to have right-sided weakness of the right upper and lower extremity significantly different than the left. He is diagnosed with a CVA and will admit the patient to the hospital for further work-up and consideration for placement. There is no MRI here over the weekend and arrangements were made to transfer the patient to [facility] for stroke work up and placement. The patient developed afib with RVR and was admitted here. Departure - Departure Disposition: 66 [facility] DC/Xfer Clinical Impression: Moderate dehydration, Parkinson disease, New onset a-fib, Atrial fibrillation with RVR Falls Qualifiers: Encounter type: initial encounter Qualified Code(s): W19.XXXA - Unspecified fall, initial encounter CVA (cerebral vascular accident) Qualifiers: CVA mechanism: unspecified Qualified Code(s): I63.9 - Cerebral infarction, unspecified Condition: Stable Discharge Date/Time: 12/30/18 12:49
[2018-12-30 03:35] LABS: BASOPHILS # (AUTO) 0.1 10^3/uL (0.0-0.1); BASOPHILS % (AUTO) 1.4 %; EOSINOPHILS # (AUTO) 0.2 10^3/uL (0.0-0.7); EOSINOPHILS % (AUTO) 3.7 %; HGB - HEMOGLOBIN 11.8 g/dL (14.0-18.0); LYMPHOCYTES # (AUTO) 1.3 10^3/uL (1.5-3.5); LYMPHOCYTES % (AUTO) 22.5 %; MEAN CORPUSCULAR HEMOGLOBIN 34.5 pg (27.0-31.0); MEAN CORPUSCULAR HGB CONC 34.5 g/dL (32.0-36.0); MEAN CORPUSCULAR VOLUME 99.8 fL (80.0-94.0); MEAN PLATELET VOLUME 8.4 fL (7.4-11.4); MONOCYTES # (AUTO) 0.6 10^3/uL (0.0-1.0); MONOCYTES % (AUTO) 9.9 %; NEUTROPHILS # (AUTO) 3.5 10^3/uL (1.5-6.6); NEUTROPHILS % (AUTO) 62.5 %; PLT - PLATELET COUNT 197 10^3/uL (130-450); RED BLOOD COUNT 3.42 10^6/uL (4.70-6.10); RED CELL DISTRIBUTION WIDTH 13.9 % (12.0-15.0); WHITE BLOOD COUNT 5.6 x10^3/uL (4.8-10.8)
[2018-12-30] MEDS ORDERED: IOPAMIDOL-300 100 ML VIAL ONE (03:40)
[2018-12-30 03:48] LABS: ALBUMIN 3.7 g/dL (3.2-5.5); ALBUMIN/GLOBULIN RATIO 1.3 (1.0-2.2); ALKALINE PHOSPHATASE 140 IU/L (42-121); ALT ALANINE AMINOTRANSFERASE < 10 IU/L (10-60); AST ASPARTATE AMINOTRANSFERASE 34 IU/L (10-42); BILIRUBIN,TOTAL 1.3 mg/dL (0.2-1.0); BUN - BLOOD UREA NITROGEN 14 mg/dL (6-20); CALCIUM 8.9 mg/dL (8.5-10.3); CARBON DIOXIDE - CO2 26 mmol/L (21-32); CHLORIDE 101 mmol/L (101-111); CREATININE 0.7 mg/dL (0.6-1.2); GFR - MDRD 109 (>89); GLUCOSE 101 mg/dL (70-100); LIPASE 26 U/L (22-51); SODIUM 138 mmol/L (135-145); TOTAL PROTEIN 6.6 g/dL (6.7-8.2)
[2018-12-30 03:59] LABS: BILIRUBIN,URINE NEGATIVE (NEGATIVE); GLUCOSE, URINE (UA) NEGATIVE (NEGATIVE); KETONES,URINE (UA) TRACE mg/dL (NEGATIVE); LEUKOCYTE ESTERASE, URINE NEGATIVE (NEGATIVE); NITRITE,URINE NEGATIVE (NEGATIVE); OCCULT BLOOD,URINE NEGATIVE (NEGATIVE); PH,URINE 6.5 PH (5.0-7.5); PROTEIN,URINE NEGATIVE (NEGATIVE); UROBILINOGEN,URINE 2 E.U./dL (NORMAL)
[2018-12-30 04:01] LABS: CLARITY,URINE CLEAR (CLEAR)
[2018-12-30] MEDS ORDERED: POTASSIUM BICARB 25 MEQ TABLET PO STA (04:14)
--- NOTE | 2018-12-30 05:12 | CT Report ---
Reason: right sided weakness Procedure Date: 12/30/2018 Accession Number: [id number] / [id number] Procedure: CT - HEAD WO CPT Code: FULL RESULT: EXAM: CT HEAD EXAM DATE: 12/30/2018 04:43 AM. CLINICAL HISTORY: Right-sided weakness. COMPARISON: HEAD W/O 07/10/2017 10:43 AM BRAIN W/O 07/11/2017 11:14 AM. TECHNIQUE: Multiaxial CT images were obtained from the foramen magnum to the vertex. Reformats: Sagittal and coronal. IV contrast: None. In accordance with CT protocol optimization, one or more of the following dose reduction techniques were utilized for this exam: automated exposure control, adjustment of mA and/or KV based on patient size, or use of iterative reconstructive technique. FINDINGS: Parenchyma: No intraparenchymal hemorrhage. No evidence of mass, midline shift, or CT findings of acute infarction. Carrero-white differentiation is distinct. Mild diffuse chronic microangiopathic white matter changes are evident. Extraaxial Spaces: Normal for age. No subdural or epidural collections identified. Ventricles: The ventricles and cortical sulci are moderately enlarged, consistent with age-related tissue loss. Sinuses and orbits: Surgical changes from cataract extractions are noted in the globes. There is mild mucosal thickening in the bilateral ethmoid and right maxillary sinuses. The mastoid sinuses are not opacified. Bones: No evidence of fracture or calvarial defect. Other: Moderate intracranial atherosclerosis is present. IMPRESSION: Generalized age-related cortical atrophic changes without evidence of acute intracranial abnormality. [facility]
--- NOTE | 2018-12-30 05:20 | XRAY Report ---
Reason: chest pain Procedure Date: 12/30/2018 Accession Number: [id number] / [id number] Procedure: XR - Chest 1 View X-Ray CPT Code: 53981 FULL RESULT: EXAM: CHEST RADIOGRAPHY EXAM DATE: 12/30/2018 05:00 AM. CLINICAL HISTORY: Chest pain. COMPARISON: CHEST 1 VIEW 07/10/2017 10:45 AM. TECHNIQUE: 1 view. FINDINGS: Lungs/Pleura: No focal opacities evident. No pleural effusion. No pneumothorax. Mediastinum: Within exam limitations, the cardiomediastinal contour is normal. Other: None. IMPRESSION: Stable negative single view chest. RADIA
[2018-12-30] MEDS ORDERED: LIDOCAINE 2% URO-JET 5 ML SYRINGE UR STA (08:55)
[2018-12-30] MEDS ORDERED: diltiaZEM INJ 125 MG in DEXTROSE 5% 100 ML IV STA (09:49)
[2018-12-30] MEDS ORDERED: ASPIRIN CHEW 81 MG TABLET PO STA (09:55)
[2018-12-30] MEDS ORDERED: LACTATED RINGERS 1,000 ML IV STA (09:56)
--- NOTE | 2018-12-30 10:09 | ED Physician Documentation ---
ED Addendum - Addendum Addendum: Patient was signed out to me by Dr. De Souza awaiting transfer at [facility] for a stroke. [facility] called back and does not feel that the transfer needs to occur at this time. While waiting in the emergency department, the patient had new onset atrial fibrillation with rapid ventricular response. Started on a diltiazem drip. As symptoms been present for 2 days and he needs to be admitted for the atrial fibrillation with RVR, the MRI can wait until Tuesday as this is a confirmatory study at this point. Given aspirin here. The nurses had trouble placing a Judge catheter, therefore I placed a 16 Wolof coud catheter with clear urine drainage. Potassium was also replaced. He was having pain from a fall to the left shoulder, x-ray ordered and will be followed up by the hospitalist. Discussed the case with Dr. Campa, hospitalist who accepts This document was made in part using voice recognition software. While efforts are made to proofread this document, sound alike and grammatical errors may occur. Departure - Departure Disposition: [facility] DC/Xfer Clinical Impression: Moderate dehydration, Parkinson disease, New onset a-fib, Atrial fibrillation with RVR Falls Qualifiers: Encounter type: initial encounter Qualified Code(s): W19.XXXA - Unspecified fall, initial encounter CVA (cerebral vascular accident) Qualifiers: CVA mechanism: unspecified Qualified Code(s): I63.9 - Cerebral infarction, unspecified Condition: Stable
[2018-12-30] MEDS ORDERED: PROCHLORPERAZINE 10 MG/2 ML VIAL IVP PRN (11:20)
[2018-12-30] MEDS ORDERED: ACETAMINOPHEN 325 MG TABLET PO PRN (11:20)
--- NOTE | 2018-12-30 11:22 | XRAY Report ---
Reason: L shoulder pain s/p fall Procedure Date: 12/30/2018 Accession Number: [id number] / [id number] Procedure: XR - Shoulder 3 View LT CPT Code: FULL RESULT: EXAM: LEFT SHOULDER RADIOGRAPHY EXAM DATE: 12/30/2018 11:01 AM. CLINICAL HISTORY: L shoulder pain s/p fall. COMPARISON: None. TECHNIQUE: 3 views. FINDINGS: Bones: There is a minimally displaced fracture line through the base of the acromion process. There is additional irregularity of the scapular body. Joints: Alignment is anatomic. Degenerative changes are seen at the acromioclavicular joint and glenohumeral joint. Soft tissues: Within normal limits. IMPRESSION: 1. Minimally displaced fracture through the base of the acromion process. 2. Additional irregularity of the scapular body could indicate additional fracture. Cross-sectional imaging is recommended for further evaluation. RADIA
[2018-12-30] MEDS ORDERED: DROXIDOPA 300 MG PO SCH (13:00)
[2018-12-30] MEDS ORDERED: MIDODRINE 2.5 MG TABLET PO SCH (13:00)
[2018-12-30] MEDS: diltiaZEM INJ 125 MG in DEXTROSE 5% 100 ML IV SCH ×2 (13:00→21:54)
[2018-12-30] MEDS: SODIUM CHLORIDE FLUSH 0.9% 10 ML SYRINGE IVP SCH ×2 (13:47→21:56)
[2018-12-30] MEDS: FAMOTIDINE 20 MG TABLET PO SCH ×2 (14:20→20:40)
[2018-12-30] MEDS: ENOXAPARIN 80 MG/0.8 ML SYRINGE SUBQ SCH ×2 (14:27→23:40)
--- NOTE | 2018-12-30 15:45 | ADVANCE CARE PLANNING NOTE ---
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 His Parkinson's has caused him to be very dependant on others. He falls often, even with a walker for ambulation and aggressive medications for his Parkinson's and orthostatic hypotension. He has had a prior CVA, now has new neurologic deficit, and is admitted for probable stroke. He wishes to be made a DNR, since he wants natural . - Objective/Medical story Objective/Medical Story: Elderly man with years of Parkinson's frequent falls due to that, prior CVA and new CVA. Brain CT did not see a mass or bleed or large deficit, but noted atherosclerotic changes of aging. He went into new Afib with RVR while in the ER. He is admitted to the ICU, on a Diltiazem drip for rate control, needs evaluation for clot or atheroosclerosis, workup of new onset afib, anticoagulation chromnically, Physical Therapy, and continued management of his Parkinson's and autonomic dysfunction. - Goals of Care Goals of care determinations: Improve his QOL. Treat the new rapid high HR of Afib. Evaluate for causes of his CVA. Continue to manage his Parkinsons and autonomic dysfunction. - Plan Plan: He wishes that I speak to his and that she sign the POLST, since he cannot sign with his neurologic impairment. As such I will repeat the discussion when she returns. - Code Status Code Status: Do Not Attempt Resuscitation - Time Spent on Advance Care Planning Time spent on advance care plannin
[2018-12-30] MEDS: KETOROLAC 15 MG/ML VIAL IVP PRN ×2 (16:25→21:56)
[2018-12-30] MEDS: DROXIDOPA 300 MG PO SCH ×2 (16:29→18:54)
[2018-12-30] MEDS: POTASSIUM CHLORIDE 20 MEQ TABLET PO SCH ×2 (17:14→20:39)
--- NOTE | 2018-12-30 18:57 | HISTORY & PHYSICAL EXAMINATION ---
DATE OF SERVICE: 12/30/2018 Physician: Taylor Campa MD HISTORY OF PRESENT ILLNESS: This is a 78-year-old white male with a history of Parkinson's disease with autonomic dysfunction with severe orthostatic hypotension, for which he is on several medications, also he had an old CVA. The patient has had frequent falls due to his orthostasis. He was still able to ambulate at home using a walker, but not a cane. Three days ago, there was a fall and he thinks he hit his right side. He had definite syncope with all of these events, therefore cannot give me details and his reports that it takes two people to raise him up off the floor. Two days ago, he started to have weakness of his right arm, which did not resolve in 48 hours. He could not feed himself, the had to feed him, and he was intermittently confused over those two days. The describes that it is "slightly harder for him to swallow recently", but he is able to tolerate solid food and pills. She brought him to the emergency room because of this weakness, and a head CT was done and showed no evidence of stroke. Because of no MRI at this facility for two more days, it was considered that he should be transferred to [facility] where there is an MRI available over the weekend. The ER doctor reached out to the [facility] doctors who stated that in fact, an MRI was not urgent if there was already a completed stroke. As this was happening, the patient was noted to go into new onset of atrial fibrillation on telemetry in a rapid ventricular rate. He does not feel this. There has been no prior documented history of atrial fibrillation. He tells me he is compliant with all of his medications. He denies any chest pain, dyspnea, cough, fever, or GI complaints. PAST MEDICAL HISTORY: Parkinson's disease, orthostatic hypotension, frequent falls because of this, old CVA. SOCIAL HISTORY: The patient lives with his and their adult daughter. 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 He is a nonsmoker, he only smoked a few years in his 20s, and he drinks no alcohol, and has no illicit drug use. FAMILY HISTORY: No inherited diseases. REVIEW OF SYSTEMS: A comprehensive review of systems was performed and the pertinent positives are listed above, the rest are negative. ALLERGIES: MORPHINE. MEDICATIONS 1. Folic acid, unknown dose daily. 2. Potassium chloride 20 mEq daily. 3. Carbidopa-Levodopa 23.75/95 mg 3 times a day. 4. Donepezil 10 mg daily. 5. Northera 600 mg 3 times a day. 6. Fludrocortisone 0.1 mg b.i.d. 8. Fluticasone nasal spray daily. 9. Midodrine 5 mg 3 times a day. 10. Sertraline 100 mg daily. PHYSICAL EXAMINATION GENERAL: A thin, elderly white male. He is in bed with head of bed elevated, in no distress. VITAL SIGNS: Blood pressure supine is 150/89, heart rate 115 in atrial fibrillation. Afebrile, room air saturation 98%. HEENT: Reveals he has normal facial expressions. No flat faces. Oral mucosa is moist. His speech is normal. NECK: Without JVD or carotid bruits. CHEST: Clear lung sounds. HEART: Normal heart sounds. No murmur, but irregular, and tachycardic. ABDOMEN: Soft b , nontender. Normal bowel sounds. EXTREMITIES: No clubbing, cyanosis, or edema. NEUROLOGIC: Weakness of the right arm and hand 2/5. The left has 5/5 strength. The legs have right-sided strength 5/5, left of 4/5. There is no tremulousness, or rigidity. His range of motion of the right arm is diminished possibly because of the recent fall on the right shoulder, he states. LABORATORY DATA: Sodium 138, potassium 3.1, BUN 14, creatinine 0.7. Lactic acid 0.9. Normal liver tests. Troponin not detectable x2. Lipase normal. White blood count 5.6, hemoglobin 11.8 with a high MCV of 99, platelet count normal at 197. No INR was done. Urinalysis showed pH of 6.5, specific gravity 1.02, trace of ketones, 2+ urobilinogen, negative leukocyte esterase and nitrites. STUDIES: Chest x-ray shows no active pulmonary disease. Head CT shows atherosclerotic changes and mild volume loss consistent with his age, but no mass or hemorrhage or stroke seen. Shoulder x-ray was done of the left shoulder and x-ray showed a minimally displaced fracture through the base of the acromion process and irregularity of the scapular body, also degenerative changes of the joint. EKG: Atrial fibrillation with rapid rate, LVH voltage and diffusely flat T waves. There is no old EKG available for comparison. ASSESSMENT 1. Probable cerebrovascular accident with right upper extremity weakness as the main deficit. 2. New onset of atrial fibrillation. This may be paroxysmal and may have occurred without symptoms of palpitations, as now, and led to the new stroke and possibly the old stroke. 3. Atrial fibrillation with rapid ventricular response. 4. Parkinson's disease. 5. Orthostatic hypotension. Autonomic dysfunction in Parkinson's patients is very common. He is on good aggressive management, including the new medication Northera. He says he is followed by a Neurologist in [place]. 6. Frequent falls due to the orthostasis. 7. Fractured acromion of the left shoulder. 8. Right shoulder pain. 9. Anemia with macrocytosis. PLAN: Admit the patient to the ICU, on a diltiazem drip, on telemetry. Begin daily baby aspirin and also consider anticoagulation long-term. However, because of his falls this will have to be thought through. Currently, while he is supine, start therapeutic doses of Lovenox for the atrial fibrillation and further stroke prevention. Check an Echo with bubble study to evaluate for clot, shunt or structural heart disease. Check carotid Doppler to evaluate for atherosclerosis. Check a lipid panel. Begin PT. MRI of the brain will be planned for Tuesday for closer, detailed evaluation of location of stroke. Social work consult will be requested since the says she can no longer take care of him with this much reliance on her and that she alone cannot lift him if there are falls. Begin a pureed diet until he has a swallowing evaluation by Speech Therapy. Continue with his medications for Parkinson's and orthostatic hypotension, I will hold the midodrine at this time because of supine hypertension. Obtain an orthopedic consult and obtain radiographic imaging of the right shoulder as well. Begin pain medications for the pain in the shoulders. Because of his MORPHINE ALLERGY I will order IV Toradol for pain management. Check B12 and Folate levels. CODE STATUS: DNR. DEEP VENOUS THROMBOSIS PROPHYLAXIS: Therapeutic Lovenox and DANIEL stocking with sequential compression devices. ATTESTATION: The patient is expected to be discharged or transferred to another facility within 96 hours: Yes. TD: 12/30/2018 18:23 SUSAN
[2018-12-30] MEDS: FLUDROCORTISONE 0.1 MG TABLET PO SCH (20:40)
--- NOTE | 2018-12-30 21:11 | XRAY Report ---
Reason: Pain in R shoulder after fall at home Procedure Date: 12/30/2018 Accession Number: [id number] / [id number] Procedure: XR - Shoulder 1 View RT CPT Code: FULL RESULT: EXAM: RIGHT SHOULDER RADIOGRAPHY EXAM DATE: 12/30/2018 06:57 PM. CLINICAL HISTORY: Pain in R shoulder after fall at home. COMPARISON: SHOULDER 3 VIEW LT 12/30/2018 10:35 AM CHEST 1 VIEW 12/30/2018 4:47 AM XR SHOULDER COMPLETE 2 VIEW 06/24/2011 4:43 PM. TECHNIQUE: 2 views. FINDINGS: Bones: The bones are osteopenic. No acute fracture or dislocation visualized. Contour deformity of the distal clavicle likely related to old trauma. Joints: The glenohumeral and acromioclavicular joints are intact. Soft tissues: Calcified plaques in the thoracic aorta. IMPRESSION: Osteopenia. No acute fracture or dislocation visualized. RADIA
[2018-12-30] MEDS: DEXTROSE 5%-0.9% NACL 1,000 ML IV SCH (22:50)
[2018-12-30] MEDS: diltiaZEM 30 MG TABLET PO SCH (23:30)
--- NOTE | 2018-12-31 00:51 | Ultrasound Report ---
Reason: CVA Procedure Date: 12/30/2018 Accession Number: [id number] / [id number] Procedure: US - Carotid Doppler Complete CPT Code: FULL RESULT: EXAM: BILATERAL CAROTID AND VERTEBRAL ARTERY DUPLEX DOPPLER ULTRASOUND: EXAM DATE: 12/30/2018 11:44 PM CLINICAL HISTORY: CVA. COMPARISON: None. TECHNIQUE: Grayscale imaging, color Doppler, and duplex spectral Doppler were used to evaluate the carotid and vertebral arteries bilaterally. Static images were obtained. FINDINGS: Irregular calcified plaque is seen in the carotid bifurcations and proximal internal carotid arteries bilaterally. Normal antegrade flow is present in bilateral vertebral arteries. VELOCITIES (cm/sec): Right CCA mid: PSV 113.2 cm/sec CCA dist: PSV 81.8 cm/sec ICA prox: PSV 105.6 cm/sec, EDV 20.8 cm/sec ICA mid: PSV 131.8 cm/sec, EDV 34.3 cm/sec ICA dist: PSV 113.7 cm/sec, EDV 28 cm/sec ECA: PSV 146.5 cm/sec Vert: PSV 58.6 cm/sec ICA/CCA: 1.2 Left CCA mid: PSV 93.6 cm/sec CCA dist: PSV 85.7 cm/sec ICA prox: PSV 110.8 cm/sec, EDV 28 cm/sec ICA mid: PSV 110.8 cm/sec, EDV 22.7 cm/sec ICA dist: PSV 105.6 cm/sec, EDV 27.9 cm/sec ECA: PSV 72 cm/sec Vert: PSV 45.8 cm/sec ICA/CCA: 1.1 ICA diameter stenosis: Right: 50-69% by velocity and <70% by NASCET criteria. Left: <50% by velocity and <70% by NASCET criteria. IMPRESSION: 1. Irregular calcified bilateral carotid artery plaquing. 2. Slightly elevated velocity in the right mid internal carotid artery which could represent 50-69% stenosis. 3. In the left carotid artery there are no elevated carotid artery velocities to suggest hemodynamically significant stenosis. 4. Normal antegrade flow is present in bilateral vertebral arteries. General Recommendations: Stenosis =50% ICA - Follow-up ultrasound 6-12 months Stenosis <50% ICA - High Risk Patient with plaque - Follow-up ultrasound 1-2 years Normal Study but High Risk Patient - Follow-up ultrasound 3-5 years Management recommendations and diagnostic criteria are based on current IAC endorsed standards in Carotid Artery Stenosis: Grayscale and Doppler Ultrasound Diagnosis. Validated velocity measurements with angiographic measurements and velocity criteria are extrapolated from diameter data as defined by the Society of Radiologists in Ultrasound Consensus Conference Radiology 2003; 229;340-346. RADIA
[2018-12-31] MEDS: SODIUM CHLORIDE FLUSH 0.9% 10 ML SYRINGE IVP PRN ×2 (04:00→09:57)
[2018-12-31] MEDS: KETOROLAC 15 MG/ML VIAL IVP PRN ×3 (04:01→20:13)
[2018-12-31 04:11] LABS: BASOPHILS # (AUTO) 0.1 10^3/uL (0.0-0.1); BASOPHILS % (AUTO) 1.4 %; EOSINOPHILS # (AUTO) 0.2 10^3/uL (0.0-0.7); EOSINOPHILS % (AUTO) 4.4 %; HGB - HEMOGLOBIN 10.9 g/dL (14.0-18.0); LYMPHOCYTES # (AUTO) 1.3 10^3/uL (1.5-3.5); MEAN CORPUSCULAR HEMOGLOBIN 33.6 pg (27.0-31.0); MEAN CORPUSCULAR HGB CONC 33.3 g/dL (32.0-36.0); MEAN CORPUSCULAR VOLUME 100.8 fL (80.0-94.0); MEAN PLATELET VOLUME 8.2 fL (7.4-11.4); MONOCYTES # (AUTO) 0.4 10^3/uL (0.0-1.0); NEUTROPHILS % (AUTO) 51.2 %; PLT - PLATELET COUNT 182 10^3/uL (130-450); RED BLOOD COUNT 3.23 10^6/uL (4.70-6.10); RED CELL DISTRIBUTION WIDTH 13.9 % (12.0-15.0)
[2018-12-31 04:21] LABS: CALCIUM 8.5 mg/dL (8.5-10.3); CREATININE 0.7 mg/dL (0.6-1.2); MAGNESIUM 1.6 mg/dL (1.7-2.8)
[2018-12-31 04:30] LABS: CHOL/HDL RATIO 3.1 (<5.0); CHOLESTEROL 146 mg/dL; HDL CHOLESTEROL 47 mg/dL; LDL CHOLESTEROL,CALCULATED 87 mg/dL; LDL/HDL RATIO 1.9 (<3.6); VLDL CHOLESTEROL 12 mg/dL
[2018-12-31] MEDS ORDERED: MAGNESIUM SULFATE 2 GRAM 2 GM/50 ML BAG IV ONE (05:00)
[2018-12-31] MEDS ORDERED: POTASSIUM CHLORIDE 20 MEQ TABLET PO ONE (06:00)
[2018-12-31] MEDS: diltiaZEM 30 MG TABLET PO SCH ×3 (06:06→18:36)
[2018-12-31] MEDS ORDERED: CARBOXYMETHYLCELLULOSE OPHTH DROPS EACHEYE PRN (06:18)
--- NOTE | 2018-12-31 08:17 | PROVIDER PROGRESS NOTE ---
Assessment/Plan - Problem List (1) CVA (cerebral vascular accident) Qualifiers: CVA mechanism: unspecified Qualified Code(s): I63.9 - Cerebral infarction, unspecified Assessment/Plan: PT to start today. Brain MRI planned for Mon (tomorrow) for more detailed brain eval. Swallowing eval by Speech Therapy still pending. Until then will continue pureed diet, which he says he prefers right now. (2) New onset a-fib Assessment/Plan: He converted to sinus rhythm Po Cardizem started and iv Cardizem drip stopped. He is on therapeutic Lovenox doses for Afib (not prophylactic low dose Lovenox). If he will no longer walk, to have a risk of falls, then will start an anticoagulant, otherwise bleeding on anticoagulation due to future risks of falls is excessive. PT evaluation ordered for today, then will determine. He may be moved out of ICU today. (3) Carotid atherosclerosis Qualifiers: Laterality: bilateral Qualified Code(s): I65.23 - Occlusion and stenosis of bilateral carotid arteries Assessment/Plan: Less than 79% stenoses. Will manage medically with daily aspirin and cholesterol control. (4) Parkinson disease Assessment/Plan: Continue his Parkinson's meds. 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 He also uses compression stockings at home, and is on TEDS stockings here. PT to start today. Will order postural VS checks, and he may need his Midodrine restarted, which was on hold due to supine HTN. (6) Falls Qualifiers: Encounter type: initial encounter Qualified Code(s): W19.XXXA - Unspecified fall, initial encounter Assessment/Plan: As in #5 above. (7) Fracture dislocation of left acromioclavicular joint Assessment/Plan: A sling was ordered last night. Will request an Orthopedic consult. Treat with Toradol iv and Tylenol po and a Lidocaine patch, due to morphine allergy, and to avoid narcotics. if possible. - Current Meds Current Meds: Current Medications Generic Name Dose Route Start Last Admin Trade Name Freq PRN Reason Stop Dose Admin Acetaminophen 650 mg 12/30/18 11:20 12/30/18 20:39 Tylenol PO 650 mg Q4HR PRN Administration Pain 1 to 4 Diltiazem HCl 30 mg 12/31/18 00:00 12/31/18 06:06 Cardizem PO 30 mg Q6HR BREN Administration Enoxaparin Sodium 70 mg 12/30/18 12:00 12/30/18 23:40 Lovenox SUBQ 70 mg Q12H BREN Administration Famotidine 20 mg 12/30/18 12:00 12/30/18 20:40 Pepcid PO 20 mg BID BREN Administration Fludrocortisone Acetate 0.1 mg 12/30/18 21:00 12/30/18 20:40 Florinef PO 0.1 mg BID BREN Administration Diltiazem HCl 125 mg/ Dextrose 125 mls @ 5 mls/hr 12/30/18 12:00 12/31/18 00:30 IV 0 mg/hr .Q25H BREN 0 mls/hr Titration Protocol 5 MG/HR Dextrose/Sodium Chloride 1,000 mls @ 100 mls/hr 12/30/18 23:00 12/31/18 06:51 D5ns IV 100 mls/hr .Q10H BREN Infusion Ketorolac Tromethamine 15 mg 12/30/18 15:53 12/31/18 04:01 Toradol Inj (15mg) IVP 01/04/19 15:52 15 mg Q6HR PRN Administration PAIN (Carbidopa/Levodopa 4 each 12/30/18 13:00 12/30/18 18:54 [Rytary Er 23.75 Mg- PO 4 each 95 Mg Cap] Cap) 0800,1300,1900 BREN Administration (Droxidopa [Northera 2 each 12/30/18 16:30 12/30/18 18:54 ] 300 Mg) Capsule PO 2 each 0800,1300,1900 BREN Administration Sodium Chloride 10 ml 12/30/18 17:00 12/30/18 21:56 Normal Saline Flush 0.9% IVP 10 ml 0100,0900,1700 BREN Administration Sodium Chloride 10 ml 12/30/18 11:20 12/31/18 04:00 Normal Saline Flush 0.9% IVP 10 ml PRN PRN Administration NEEDED PER PROVIDER ORDERS - Lab Result Fish Bone Diagrams: 12/31/18 04:00 12/31/18 04:00 - EKG Results EKG Interpreted Independently: Yes EKG Comparison: Changed from prior EKG EKG Findings: NSR, rate 73, PAC, PVC, poss LVH, infero-lateral T wave flattening. Since yesterday, the Afib is absent now. - Additional Planning My Orders: My Active Orders 12/30/18 11:20 Activity Orders [RC] Q2HR Daily Weight [RC] 0600 Judge Insertion [RC] QSHIFT IO [RC] Q1HR IV Insert [RC] ONCE Initiate Bowel Care Protocol [RC] QSHIFT Initiate ICU Electrolyte Prot. [RC] .protocol Initiate Line Care Protocol [RC] .protocol Initiate Line Care Protocol [RC] .protocol Initiate Personal Care Protoco [RC] .protocol Vital Signs [RC] Q2HR Acetaminophen [Tylenol] 650 mg PO Q4HR PRN Prochlorperazine Inj [Compazine Inj] 10 mg IVP Q6HR PRN Sodium Chloride Flush 0.9% [Normal Saline Flush 0.9%] 10 ml IVP PRN PRN Code Status [OTHERS] Routine Condition of Patient [OTHERS] Routine DVT Prophylaxis [OTHERS] Routine 12/30/18 11:25 Oxygen Therapy [RC] .PRN Telemetry- [RC] Q4HR Turn, Cough and Deep Breathe [RC] Routine 12/30/18 11:32 Tad Hose and Compression Devic [RC] Q8H 12/30/18 11:33 Echo Complete w/Bubble Study [ECHO] Routine 12/30/18 12:00 Dextrose 5% [D5w] 100 ml diltiaZEM INJ [Cardizem Inj] 125 mg IV 5 mg/hr Enoxaparin [Lovenox] 70 mg SUBQ Q12H Famotidine [Pepcid] 20 mg PO BID 12/30/18 13:00 Patient Own Med [Patient Own Medication] 4 each PO 0800,1300,1900 12/30/18 15:53 Ketorolac Inj (15Mg) [Toradol Inj (15Mg)] 15 mg IVP Q6HR PRN 12/30/18 16:30 Patient Own Med [Patient Own Medication] 2 each PO 0800,1300,1900 12/30/18 17:00 Sodium Chloride Flush 0.9% [Normal Saline Flush 0.9%] 10 ml IVP 0100,0900,1700 12/30/18 18:14 Miscellaenous Nursing Order [RC] QSHIFT 12/30/18 18:16 Miscellaenous Nursing Order [RC] QSHIFT 12/30/18 21:00 Fludrocortisone [Florinef] 0.1 mg PO BID 12/30/18 Lunch Dysphagia Puree Diet [DIET] 12/31/18 08:00 EKG - Electrocardiogram [RC] Routine 12/31/18 09:00 Aspirin EC [Ecotrin] 81 mg PO DAILY Donepezil [Aricept] 10 mg PO DAILY Fluticasone [Flonase] 2 sprays LISE DAILY Sertraline [Zoloft] 50 mg PO DAILY 01/01/19 05:00 BMP - BASIC METABOLIC PANEL [CHEM] DAILYLAB CBC - COMP BLD CT W/AUTO DIFF [HEME] DAILYLAB MAGNESIUM [CHEM] DAILYLAB PHOSPHORUS [CHEM] DAILYLAB 01/02/19 05:00 BMP - BASIC METABOLIC PANEL [CHEM] DAILYLAB CBC - COMP BLD CT W/AUTO DIFF [HEME] DAILYLAB MAGNESIUM [CHEM] DAILYLAB PHOSPHORUS [CHEM] DAILYLAB 01/03/19 05:00 BMP - BASIC METABOLIC PANEL [CHEM] DAILYLAB CBC - COMP BLD CT W/AUTO DIFF [HEME] DAILYLAB Subjective - Subjective Patient Reports: Resting Comfortably Objective Vital Signs: Vital Signs - 24 hr 12/30/18 12/30/18 12/30/18 09:00 10:33 11:09 Temperature Heart Rate 135 H 139 H 124 H Heart Rate [ Monitoring electrodes] Respiratory 22 19 19 Rate Blood Pressure 144/106 H 132/92 H 152/99 H Blood Pressure [Right Ankle] Blood Pressure [Right Brachial artery] O2 Saturation 98 97 12/30/18 12/30/18 12/30/18 11:18 11:20 12:09 Temperature Heart Rate 137 H 108 H 135 H Heart Rate [ Monitoring electrodes] Respiratory 22 23 19 Rate Blood Pressure 151/93 H 129/98 H 147/101 H Blood Pressure [Right Ankle] Blood Pressure [Right Brachial artery] O2 Saturation 98 100 100 12/30/18 12/30/18 12/30/18 12:47 13:00 13:15 Temperature 36.5 C Heart Rate Heart Rate [ 131 H 120 H 114 H Monitoring electrodes] Respiratory 22 20 16 Rate Blood Pressure 136/85 H Blood Pressure [Right Ankle] Blood Pressure 136/85 H 140/85 H 121/71 [Right Brachial artery] O2 Saturation 96 98 99 12/30/18 12/30/18 12/30/18 13:30 14:30 15:00 Temperature Heart Rate Heart Rate [ 115 H 112 H 97 Monitoring electrodes] Respiratory 15 14 18 Rate Blood Pressure Blood Pressure [Right Ankle] Blood Pressure 151/89 H 140/76 H 126/69 [Right Brachial artery] O2 Saturation 98 100 98 12/30/18 12/30/18 12/30/18 16:00 17:00 18:00 Temperature 37.3 C Heart Rate Heart Rate [ 96 94 85 Monitoring electrodes] Respiratory 17 16 17 Rate Blood Pressure Blood Pressure [Right Ankle] Blood Pressure 134/74 H 126/84 H 92/60 [Right Brachial artery] O2 Saturation 100 98 97 12/30/18 12/30/18 12/30/18 18:30 18:45 19:15 Temperature 36.4 C L Heart Rate Heart Rate [ 77 84 Monitoring electrodes] Respiratory 18 20 Rate Blood Pressure Blood Pressure [Right Ankle] Blood Pressure 110/60 115/66 [Right Brachial artery] O2 Saturation 97 98 12/30/18 12/30/18 12/30/18 20:05 20:10 20:15 Temperature Heart Rate Heart Rate [ 77 80 78 Monitoring electrodes] Respiratory Rate Blood Pressure Blood Pressure [Right Ankle] Blood Pressure 123/83 H 142/68 H 124/72 [Right Brachial artery] O2 Saturation 12/30/18 12/30/18 12/30/18 20:30 20:45 21:00 Temperature Heart Rate Heart Rate [ 76 75 78 Monitoring electrodes] Respiratory 16 Rate Blood Pressure Blood Pressure [Right Ankle] Blood Pressure 124/79 120/62 103/51 L [Right Brachial artery] O2 Saturation 97 12/30/18 12/30/18 12/30/18 21:25 21:37 21:40 Temperature Heart Rate Heart Rate [ 74 82 82 Monitoring electrodes] Respiratory Rate Blood Pressure Blood Pressure [Right Ankle] Blood Pressure 127/64 135/106 H 147/81 H [Right Brachial artery] O2 Saturation 12/30/18 12/30/18 12/30/18 21:45 22:00 22:15 Temperature Heart Rate Heart Rate [ 79 74 76 Monitoring electrodes] Respiratory Rate Blood Pressure Blood Pressure 143/94 H [Right Ankle] Blood Pressure 102/88 H 159/63 H [Right Brachial artery] O2 Saturation 03/16/19 03/16/19 03/16/19 22:30 23:00 23:13 Temperature 36.3 C L Heart Rate Heart Rate [ 81 69 Monitoring electrodes] Respiratory 18 Rate Blood Pressure Blood Pressure 159/101 H 135/111 H [Right Ankle] Blood Pressure [Right Brachial artery] O2 Saturation 97 12/30/18 12/31/18 12/31/18 23:30 00:05 00:10 Temperature Heart Rate Heart Rate [ 82 79 Monitoring electrodes] Respiratory Rate Blood Pressure 125/95 H Blood Pressure 160/85 H 168/73 H [Right Ankle] Blood Pressure [Right Brachial artery] O2 Saturation 12/31/18 12/31/18 12/31/18 00:15 00:31 00:45 Temperature Heart Rate Heart Rate [ 75 78 78 Monitoring electrodes] Respiratory Rate Blood Pressure Blood Pressure 141/92 H 161/70 H 149/86 H [Right Ankle] Blood Pressure [Right Brachial artery] O2 Saturation 12/31/18 12/31/18 12/31/18 01:00 02:00 03:00 Temperature Heart Rate Heart Rate [ 80 75 74 Monitoring electrodes] Respiratory 21 17 15 Rate Blood Pressure Blood Pressure 167/80 H 149/69 H 161/66 H [Right Ankle] Blood Pressure [Right Brachial artery] O2 Saturation 98 12/31/18 12/31/18 12/31/18 04:00 05:16 06:06 Temperature 36.3 C L Heart Rate Heart Rate [ 73 74 Monitoring electrodes] Respiratory 13 17 Rate Blood Pressure 132/74 H Blood Pressure 163/77 H 162/74 H [Right Ankle] Blood Pressure [Right Brachial artery] O2 Saturation 12/31/18 12/31/18 12/31/18 06:18 07:00 08:00 Temperature 36.5 C Heart Rate Heart Rate [ 68 69 64 Monitoring electrodes] Respiratory 14 15 14 Rate Blood Pressure Blood Pressure 132/74 H 158/60 H 147/66 H [Right Ankle] Blood Pressure [Right Brachial artery] O2 Saturation 96 95 Oxygen O2 Source Room air I&O (Last 24 Hrs): Intake and Output Totals x24h 12/29/18 12/30/18 12/31/18 23:59 23:59 23:59 Intake Total 2041.468 943.667 Output Total 2385 200 Balance -343.532 743.667 General: Alert, Oriented x3 HEENT: Other (Mucosa moist. He is able to smile) Neck: Supple, No JVD Neuro: Other (R arm is slow to move and strength is 3/5 today (yesterday was 250.) Cardiovascular: Regular rate, No murmurs Respiratory: No respiratory distress, Breath sounds nml Abdomen: Soft Extremities: No edema - Results Results: Laboratory Results WBC 4.0 x10^3/uL (4.8-10.8) L 12/31/18 04:00 RBC 3.23 10^6/uL (4.70-6.10) L 12/31/18 04:00 Hgb 10.9 g/dL (14.0-18.0) L 12/31/18 04:00 Hct 32.6 % (42.0-52.0) L 12/31/18 04:00 MCV 100.8 fL (80.0-94.0) H 12/31/18 04:00 MCH 33.6 pg (27.0-31.0) H 12/31/18 04:00 MCHC 33.3 g/dL (32.0-36.0) 12/31/18 04:00 RDW 13.9 % (12.0-15.0) 12/31/18 04:00 Plt Count 182 10^3/uL (130-450) 12/31/18 04:00 MPV 8.2 fL (7.4-11.4) 12/31/18 04:00 Neut # (Auto) 2.0 10^3/uL (1.5-6.6) 12/31/18 04:00 Lymph # (Auto) 1.3 10^3/uL (1.5-3.5) L 12/31/18 04:00 [place] # (Auto) 0.4 10^3/uL (0.0-1.0) 12/31/18 04:00 Eos # (Auto) 0.2 10^3/uL (0.0-0.7) 12/31/18 04:00 Baso # (Auto) 0.1 10^3/uL (0.0-0.1) 12/31/18 04:00 Absolute Nucleated RBC 0.01 x10^3/uL 12/31/18 04:00 Nucleated RBC % 0.2 /100WBC 12/31/18 04:00 Sodium 142 mmol/L (135-145) 12/31/18 04:00 Potassium 3.4 mmol/L (3.5-5.0) L 12/31/18 04:00 Chloride 106 mmol/L (101-111) 12/31/18 04:00 Carbon Dioxide 27 mmol/L (21-32) 12/31/18 04:00 Anion Gap 9.0 (6-13) 12/31/18 04:00 BUN 13 mg/dL (6-20) 12/31/18 04:00 Creatinine 0.7 mg/dL (0.6-1.2) 12/31/18 04:00 Estimated GFR (MDRD) 109 (>89) 12/31/18 04:00 Glucose 111 mg/dL (70-100) H 12/31/18 04:00 Lactic Acid 0.9 mmol/L (0.5-2.2) 12/30/18 03:26 Calcium 8.5 mg/dL (8.5-10.3) 12/31/18 04:00 Phosphorus 3.2 mg/dL (2.5-4.6) 12/31/18 04:00 Magnesium 1.6 mg/dL (1.7-2.8) L 12/31/18 04:00 Total Bilirubin 1.3 mg/dL (0.2-1.0) H 12/30/18 03:26 AST 34 IU/L (10-42) 12/30/18 03:26 ALT < 10 IU/L (10-60) L 12/30/18 03:26 Alkaline Phosphatase 140 IU/L (42-121) H 12/30/18 03:26 Troponin I < 0.04 ng/mL (<0.49) 12/31/18 04:00 Total Protein 6.6 g/dL (6.7-8.2) L 12/30/18 03:26 Albumin 3.7 g/dL (3.2-5.5) 12/30/18 03:26 Globulin 2.9 g/dL (2.1-4.2) 12/30/18 03:26 Albumin/Globulin Ratio 1.3 (1.0-2.2) 12/30/18 03:26 Triglycerides 59 mg/dL (-149) 12/31/18 04:00 Cholesterol 146 mg/dL (-199) 12/31/18 04:00 LDL Cholesterol, Calc 87 mg/dL (-129) 12/31/18 04:00 VLDL Cholesterol 12 mg/dL 12/31/18 04:00 HDL Cholesterol 47 mg/dL (60-) L 12/31/18 04:00 LDL/HDL Ratio 1.9 (<3.6) 12/31/18 04:00 Cholesterol/HDL Ratio 3.1 (<5.0) 12/31/18 04:00 Lipase 26 U/L (22-51) 12/30/18 03:26 Vitamin B12 3104 pg/mL (180-914) H 12/31/18 04:00 Folate 28.00 ng/mL (5.90 - >24.8) 12/31/18 04:00 Urine Color YELLOW 12/30/18 03:50 Urine Clarity CLEAR (CLEAR) 12/30/18 03:50 Urine pH 6.5 PH (5.0-7.5) 12/30/18 03:50 Ur Specific [place] 1.020 (1.002-1.030) 12/30/18 03:50 Urine Protein NEGATIVE mg/dL (NEGATIVE) 12/30/18 03:50 Urine Glucose (UA) NEGATIVE mg/dL (NEGATIVE) 12/30/18 03:50 Urine Ketones TRACE mg/dL (NEGATIVE) 12/30/18 03:50 Urine Occult Blood NEGATIVE (NEGATIVE) 12/30/18 03:50 Urine Nitrite NEGATIVE (NEGATIVE) 12/30/18 03:50 Urine Bilirubin NEGATIVE (NEGATIVE) 12/30/18 03:50 Urine Urobilinogen 2 E.U./dL (NORMAL) H 12/30/18 03:50 Ur Leukocyte Esterase NEGATIVE (NEGATIVE) 12/30/18 03:50 Ur Microscopic Review NOT INDICATED 12/30/18 03:50 Urine Culture Comments NOT INDICATED 12/30/18 03:50 Nasal Screen MRSA (PCR) NEGATIVE (NEGATIVE) 12/30/18 Unknown - Procedures Procedures: Procedures EXCISE CORD/EPID LES NEC (02/22/14) LAPAROSCOP APPENDECTOMY (10/29/13) OTH & OPEN REPAIR INDIRECT INGUINAL HERNIA W GRFT OR PROSTH (02/22/14)
[2018-12-31] MEDS: DROXIDOPA 300 MG PO SCH ×3 (08:44→18:38)
[2018-12-31] MEDS ORDERED: FLUTICASONE NASAL SPRAY NAS SCH (09:00)
[2018-12-31] MEDS: ASPIRIN EC 81 MG TABLET PO SCH (09:31)
[2018-12-31] MEDS: FAMOTIDINE 20 MG TABLET PO SCH ×2 (09:31→20:13)
[2018-12-31] MEDS: SERTRALINE 50 MG TABLET PO SCH (09:31)
[2018-12-31] MEDS: DEXTROSE 5%-0.9% NACL 1,000 ML IV SCH ×2 (09:31→18:38)
[2018-12-31] MEDS: FLUDROCORTISONE 0.1 MG TABLET PO SCH ×2 (09:32→20:13)
[2018-12-31] MEDS: DONEPEZIL 5 MG TABLET PO SCH (09:32)
[2018-12-31] MEDS: SODIUM CHLORIDE FLUSH 0.9% 10 ML SYRINGE IVP SCH ×2 (09:33→16:41)
[2018-12-31] MEDS: LIDOCAINE PATCH 5% TOP PRN (10:12)
[2018-12-31] MEDS: ENOXAPARIN 80 MG/0.8 ML SYRINGE SUBQ SCH (11:34)
[2018-12-31] MEDS: HYDROcod/ACETAM 5/325 MG TABLET PO PRN (16:41)
[2018-12-31] MEDS ORDERED: PROCHLORPERAZINE 10 MG/2 ML VIAL IVP PRN (22:20)
[2019-01-01] MEDS: diltiaZEM 30 MG TABLET PO SCH ×3 (00:27→12:44)
[2019-01-01] MEDS: ENOXAPARIN 80 MG/0.8 ML SYRINGE SUBQ SCH ×2 (00:27→12:29)
[2019-01-01] MEDS: SODIUM CHLORIDE FLUSH 0.9% 10 ML SYRINGE IVP SCH ×3 (02:03→18:04)
[2019-01-01] MEDS: DEXTROSE 5%-0.9% NACL 1,000 ML IV SCH ×2 (04:07→19:13)
[2019-01-01] MEDS: HYDROcod/ACETAM 5/325 MG TABLET PO PRN ×2 (04:53→21:14)
[2019-01-01] MEDS: KETOROLAC 15 MG/ML VIAL IVP PRN (05:47)
[2019-01-01 07:02] LABS: CALCIUM 8.4 mg/dL (8.5-10.3); CREATININE 0.6 mg/dL (0.6-1.2); EOSINOPHILS # (AUTO) 0.2 10^3/uL (0.0-0.7); EOSINOPHILS % (AUTO) 4.8 %; HGB - HEMOGLOBIN 11.9 g/dL (14.0-18.0); LYMPHOCYTES # (AUTO) 0.9 10^3/uL (1.5-3.5); MAGNESIUM 1.6 mg/dL (1.7-2.8); MEAN CORPUSCULAR HEMOGLOBIN 34.4 pg (27.0-31.0); MEAN CORPUSCULAR HGB CONC 34.2 g/dL (32.0-36.0); MEAN CORPUSCULAR VOLUME 100.6 fL (80.0-94.0); MEAN PLATELET VOLUME 8.4 fL (7.4-11.4); MONOCYTES # (AUTO) 0.4 10^3/uL (0.0-1.0); MONOCYTES % (AUTO) 8.7 %; NEUTROPHILS % (AUTO) 65.5 %; PHOSPHORUS 3.1 mg/dL (2.5-4.6); PLT - PLATELET COUNT 189 10^3/uL (130-450); RED BLOOD COUNT 3.46 10^6/uL (4.70-6.10); RED CELL DISTRIBUTION WIDTH 14.1 % (12.0-15.0); WHITE BLOOD COUNT 4.6 x10^3/uL (4.8-10.8)
[2019-01-01] MEDS ORDERED: POTASSIUM CHLORIDE 20 MEQ/15 ML UDC PO SCH (07:14)
[2019-01-01] MEDS ORDERED: MAGNESIUM SULFATE 2 GRAM 2 GM/50 ML BAG IV ONE (07:30)
[2019-01-01] MEDS ORDERED: POTASSIUM CHLORIDE INJ 40 MEQ in SODIUM CHLORIDE 0.9% 480 ML IV ONE (08:00)
[2019-01-01] MEDS: ASPIRIN EC 81 MG TABLET PO SCH (08:41)
[2019-01-01] MEDS: DONEPEZIL 5 MG TABLET PO SCH (08:41)
[2019-01-01] MEDS: FLUDROCORTISONE 0.1 MG TABLET PO SCH ×2 (08:41→21:16)
[2019-01-01] MEDS: SERTRALINE 50 MG TABLET PO SCH (08:43)
[2019-01-01] MEDS: DROXIDOPA 300 MG PO SCH ×3 (08:43→19:10)
[2019-01-01] MEDS ORDERED: FLUTICASONE NASAL SPRAY NAS SCH ×2 (09:00→21:50)
[2019-01-01] MEDS: FLUTICASONE NASAL SPRAY NAS SCH ×2 (09:00→21:17)
--- NOTE | 2019-01-01 11:31 | PROVIDER PROGRESS NOTE ---
Assessment/Plan - Problem List (1) CVA (cerebral vascular accident) Qualifiers: CVA mechanism: unspecified Qualified Code(s): I63.9 - Cerebral infarction, unspecified Assessment/Plan: Awaiting Brain MRI to localize stroke. Awaiting swallow eval with Speech Therapy to determine if he can be advanced from pureed food. Echo did not show a clot or shunt and a preserved LVEF. Carotid Dopplers showed mild-moderate plaque. PT started yesterday. He needs OT, for recovering function of R hand to be able to feed himself. He is on aspirin daily. Will add Plavix to aspirin for stroke management. (2) New onset a-fib Assessment/Plan: He converted to sinus rhythm after rate controlled on Cardizem iv >> po and the heart rate is good. He is on aspirin daily. He is on therapeutic Lovenox dosing, but today will not be transitioned to an anticoagulant, since he has documented severe drop in BP, on orthostatic VS c heck, which has caused many falls before. Therefore his risk of bleeding from a potential fall, outweighs the benefit. Will add Plavix to aspirin for stroke management. (3) Carotid atherosclerosis Qualifiers: Laterality: bilateral Qualified Code(s): I65.23 - Occlusion and stenosis of bilateral carotid arteries Assessment/Plan: Continue aspirin, add Plavix. LDL is already <100 (at 87). Continue a cardiac diet. (4) Parkinson disease Assessment/Plan: His Parkinson's symptoms are under good control on present management. (5) Orthostatic hypotension due to Parkinson's disease Assessment/Plan: He has a severe drop in postural VS checked today: Supine: BP 110/45, HR 64... Sittin/54, HR 108... Standin/44, HR 108. He was off his Midodrine for 2 days due to supine HTN. I will resume the Midodrine today at his usual home dose of 5 mg tid. Continue his Florinef and Northera. Check postural VS once a day, preferrably when he gets up with daily PT. (6) Falls Qualifiers: Encounter type: initial encounter Qualified Code(s): W19.XXXA - Unspecified fall, initial encounter Assessment/Plan: He has had many falls in his life. He is on aggressive treatment for Orthostatic Hypotension. The cannot handle him at home and she wishes SNF at [facility] for rehabing. (7) Fracture dislocation of left acromioclavicular joint Assessment/Plan: Orthopedic advice for sling and pain control appreciated. (8) Hypokalemia Assessment/Plan: He has daily low K, likely due to being on Flurinef, which helps retain salt, but creates K loss. Will add daily oral Pottassium to meds, therefore. Follow BMP daily. - Current Meds Current Meds: Current Medications Generic Name Dose Route Start Last Admin Trade Name Freq PRN Reason Stop Dose Admin Acetaminophen 650 mg 12/30/18 11:20 12/30/18 20:39 Tylenol PO 650 mg Q4HR PRN Administration Pain 1 to 4 Hydrocodone Bitart/Acetaminophen 1 tab 12/31/18 00:26 01/01/19 04:53 [place] 5/325 PO 1 tab Q6HR PRN Administration PAIN Aspirin 81 mg 12/31/18 09:00 01/01/19 08:41 Ecotrin PO 81 mg DAILY BREN Administration Carboxymethylcellulose 1 drops 12/31/18 06:18 12/31/18 09:33 Refresh 1% Ophth Drops EACHEYE 1 drops Q4HR PRN Administration Dry Eye Diltiazem HCl 30 mg 12/31/18 00:00 01/01/19 05:46 Cardizem PO 30 mg Q6HR BREN Administration Donepezil HCl 10 mg 12/31/18 09:00 01/01/19 08:41 Aricept PO 10 mg DAILY BREN Administration Enoxaparin Sodium 70 mg 12/30/18 12:00 01/01/19 00:27 Lovenox SUBQ 70 mg Q12H BREN Administration Famotidine 20 mg 12/30/18 12:00 12/31/18 20:13 Pepcid PO 20 mg BID BREN Administration Fludrocortisone Acetate 0.1 mg 12/30/18 21:00 01/01/19 08:41 Florinef PO 0.1 mg BID BREN Administration Fluticasone Propionate 1 sprays 01/01/19 09:00 01/01/19 09:00 Flonase LISE 1 sprays BID BREN Administration Dextrose/Sodium Chloride 1,000 mls @ 100 mls/hr 12/30/18 23:00 01/01/19 04:07 D5ns IV 100 mls/hr .Q10H BREN Administration Potassium Chloride 40 meq/ 500 mls @ 125 mls/hr 01/01/19 08:00 01/01/19 10:54 Sodium Chloride IV 01/01/19 11:59 125 mls/hr ONCE ONE Administration Ketorolac Tromethamine 15 mg 12/30/18 15:53 01/01/19 05:47 Toradol Inj (15mg) IVP 01/04/19 15:52 15 mg Q6HR PRN Administration PAIN Lidocaine 1 patch 12/31/18 08:18 12/31/18 10:12 Lidoderm Patch TOP 1 patch DAILY PRN Administration PAIN (Carbidopa/Levodopa 4 each 12/30/18 13:00 01/01/19 08:44 [Rytary Er 23.75 Mg- PO 4 each 95 Mg Cap] Cap) 0800,1300,1900 BREN Administration (Droxidopa [Northera 2 each 12/30/18 16:30 01/01/19 08:43 ] 300 Mg) Capsule PO 2 each 0800,1300,1900 BREN Administration Sertraline HCl 50 mg 12/31/18 09:00 01/01/19 08:43 Zoloft PO 50 mg DAILY BREN Administration Sodium Chloride 10 ml 12/30/18 17:00 01/01/19 10:56 Normal Saline Flush 0.9% IVP Not Given 0100,0900,1700 BREN Sodium Chloride 10 ml 12/30/18 11:20 12/31/18 09:57 Normal Saline Flush 0.9% IVP 10 ml PRN PRN Administration NEEDED PER PROVIDER ORDERS - Lab Result Fish Bone Diagrams: 01/01/19 06:20 01/01/19 06:20 - Additional Planning My Orders: My Active Orders 01/01/19 08:37 BRAIN WO [MRI] Routine 01/01/19 12:00 Potassium Chloride Oral Soln 20 meq PO ONCE ONE 01/01/19 13:00 Midodrine 5 mg PO 0800,1300,1800 01/01/19 15:00 POTASSIUM [CHEM] Timed 01/02/19 05:00 BMP - BASIC METABOLIC PANEL [CHEM] DAILYLAB CBC - COMP BLD CT W/AUTO DIFF [HEME] DAILYLAB MAGNESIUM [CHEM] DAILYLAB PHOSPHORUS [CHEM] DAILYLAB 01/03/19 05:00 BMP - BASIC METABOLIC PANEL [CHEM] DAILYLAB CBC - COMP BLD CT W/AUTO DIFF [HEME] DAILYLAB Subjective - Subjective Patient Reports: No Complaints Objective Vital Signs: Vital Signs - 24 hr 12/31/18 12/31/18 12/31/18 11:33 11:45 11:47 Temperature Heart Rate [ Monitoring electrodes] Heart Rate [ Sitting (After 1 Minute)] Heart Rate [ 73 Sitting] Heart Rate [ Standing (After 1 Minute)] Heart Rate [ 74 Standing] Heart Rate [ 74 74 Supine] Respiratory Rate Blood Pressure 160/79 H Blood Pressure [Left Brachial artery] Blood Pressure [Right Ankle] Blood Pressure [Right Brachial artery] Blood Pressure [Sitting (After 1 Minute)] Blood Pressure 136/76 H [Sitting] Blood Pressure [Standing ( After 1 Minute) ] Blood Pressure 127/65 [Standing] Blood Pressure 163/88 H 163/88 H [Supine] O2 Saturation O2 Saturation [ 97 Without Activity] 12/31/18 12/31/18 12/31/18 11:53 12:00 13:18 Temperature 36.5 C Heart Rate [ 78 75 Monitoring electrodes] Heart Rate [ Sitting (After 1 Minute)] Heart Rate [ Sitting] Heart Rate [ Standing (After 1 Minute)] Heart Rate [ Standing] Heart Rate [ 72 77 Supine] Respiratory 18 18 Rate Blood Pressure Blood Pressure [Left Brachial artery] Blood Pressure 127/65 116/47 L [Right Ankle] Blood Pressure [Right Brachial artery] Blood Pressure [Sitting (After 1 Minute)] Blood Pressure [Sitting] Blood Pressure [Standing ( After 1 Minute) ] Blood Pressure [Standing] Blood Pressure 136/76 H 127/65 [Supine] O2 Saturation 97 98 O2 Saturation [ Without Activity] 12/31/18 12/31/18 12/31/18 16:21 18:36 21:00 Temperature 36.8 C 36.3 C L Heart Rate [ 62 67 Monitoring electrodes] Heart Rate [ Sitting (After 1 Minute)] Heart Rate [ Sitting] Heart Rate [ Standing (After 1 Minute)] Heart Rate [ Standing] Heart Rate [ Supine] Respiratory 16 18 Rate Blood Pressure 130/60 Blood Pressure [Left Brachial artery] Blood Pressure [Right Ankle] Blood Pressure 155/68 H 120/62 [Right Brachial artery] Blood Pressure [Sitting (After 1 Minute)] Blood Pressure [Sitting] Blood Pressure [Standing ( After 1 Minute) ] Blood Pressure [Standing] Blood Pressure [Supine] O2 Saturation 96 99 O2 Saturation [ Without Activity] 01/01/19 01/01/19 01/01/19 00:34 04:16 07:45 Temperature 36.3 C L 36.3 C L 36.3 C L Heart Rate [ 65 103 H 62 Monitoring electrodes] Heart Rate [ Sitting (After 1 Minute)] Heart Rate [ Sitting] Heart Rate [ Standing (After 1 Minute)] Heart Rate [ Standing] Heart Rate [ Supine] Respiratory 18 16 18 Rate Blood Pressure Blood Pressure 142/72 H 153/64 H 137/63 H [Left Brachial artery] Blood Pressure [Right Ankle] Blood Pressure [Right Brachial artery] Blood Pressure [Sitting (After 1 Minute)] Blood Pressure [Sitting] Blood Pressure [Standing ( After 1 Minute) ] Blood Pressure [Standing] Blood Pressure [Supine] O2 Saturation 99 100 98 O2 Saturation [ Without Activity] 01/01/19 09:40 Temperature Heart Rate [ Monitoring electrodes] Heart Rate [ 108 H Sitting (After 1 Minute)] Heart Rate [ Sitting] Heart Rate [ 108 H Standing (After 1 Minute)] Heart Rate [ Standing] Heart Rate [ 64 Supine] Respiratory Rate Blood Pressure Blood Pressure [Left Brachial artery] Blood Pressure [Right Ankle] Blood Pressure [Right Brachial artery] Blood Pressure 94/54 L [Sitting (After 1 Minute)] Blood Pressure [Sitting] Blood Pressure 64/44 L [Standing ( After 1 Minute) ] Blood Pressure [Standing] Blood Pressure 110/45 L [Supine] O2 Saturation O2 Saturation [ Without Activity] Oxygen O2 Source [Without Activity] Room air O2 Source Room air I&O (Last 24 Hrs): Intake and Output Totals x24h 12/30/18 12/31/18 01/01/19 23:59 23:59 23:59 Intake Total 2041.468 3700.100 1568.333 Output Total 2385 850 4300 Balance -695.753 2557.100 -1471.667 General: Alert, Oriented x3 HEENT: Mucous membr. moist/pink, Other (Quiver in his vice with speaking) Neck: Supple Neuro: Other (R hand strength 3/5) Cardiovascular: Regular rate, No murmurs Respiratory: No respiratory distress, Breath sounds nml Abdomen: Soft Extremities: No edema - Results Results: Laboratory Results WBC 4.6 x10^3/uL (4.8-10.8) L 01/01/19 06:20 RBC 3.46 10^6/uL (4.70-6.10) L 01/01/19 06:20 Hgb 11.9 g/dL (14.0-18.0) L 01/01/19 06:20 Hct 34.8 % (42.0-52.0) L 01/01/19 06:20 MCV 100.6 fL (80.0-94.0) H 01/01/19 06:20 MCH 34.4 pg (27.0-31.0) H 01/01/19 06:20 MCHC 34.2 g/dL (32.0-36.0) 01/01/19 06:20 RDW 14.1 % (12.0-15.0) 01/01/19 06:20 Plt Count 189 10^3/uL (130-450) 01/01/19 06:20 MPV 8.4 fL (7.4-11.4) 01/01/19 06:20 Neut # (Auto) 3.0 10^3/uL (1.5-6.6) 01/01/19 06:20 Lymph # (Auto) 0.9 10^3/uL (1.5-3.5) L 01/01/19 06:20 [place] # (Auto) 0.4 10^3/uL (0.0-1.0) 01/01/19 06:20 Eos # (Auto) 0.2 10^3/uL (0.0-0.7) 01/01/19 06:20 Baso # (Auto) 0.0 10^3/uL (0.0-0.1) 01/01/19 06:20 Absolute Nucleated RBC 0.00 x10^3/uL 01/01/19 06:20 Nucleated RBC % 0.1 /100WBC 01/01/19 06:20 Sodium 137 mmol/L (135-145) 01/01/19 06:20 Potassium 2.5 mmol/L (3.5-5.0) L* 01/01/19 06:20 Chloride 100 mmol/L (101-111) L 01/01/19 06:20 Carbon Dioxide 28 mmol/L (21-32) 01/01/19 06:20 Anion Gap 9.0 (6-13) 01/01/19 06:20 BUN 7 mg/dL (6-20) 01/01/19 06:20 Creatinine 0.6 mg/dL (0.6-1.2) 01/01/19 06:20 Estimated GFR (MDRD) 130 (>89) 01/01/19 06:20 Glucose 109 mg/dL (70-100) H 01/01/19 06:20 Lactic Acid 0.9 mmol/L (0.5-2.2) 12/30/18 03:26 Calcium 8.4 mg/dL (8.5-10.3) L 01/01/19 06:20 Phosphorus 3.1 mg/dL (2.5-4.6) 01/01/19 06:20 Magnesium 1.6 mg/dL (1.7-2.8) L 01/01/19 06:20 Total Bilirubin 1.3 mg/dL (0.2-1.0) H 12/30/18 03:26 AST 34 IU/L (10-42) 12/30/18 03:26 ALT < 10 IU/L (10-60) L 12/30/18 03:26 Alkaline Phosphatase 140 IU/L (42-121) H 12/30/18 03:26 Troponin I < 0.04 ng/mL (<0.49) 12/31/18 04:00 Total Protein 6.6 g/dL (6.7-8.2) L 12/30/18 03:26 Albumin 3.7 g/dL (3.2-5.5) 12/30/18 03:26 Globulin 2.9 g/dL (2.1-4.2) 12/30/18 03:26 Albumin/Globulin Ratio 1.3 (1.0-2.2) 12/30/18 03:26 Triglycerides 59 mg/dL (-149) 12/31/18 04:00 Cholesterol 146 mg/dL (-199) 12/31/18 04:00 LDL Cholesterol, Calc 87 mg/dL (-129) 12/31/18 04:00 VLDL Cholesterol 12 mg/dL 12/31/18 04:00 HDL Cholesterol 47 mg/dL (60-) L 12/31/18 04:00 LDL/HDL Ratio 1.9 (<3.6) 12/31/18 04:00 Cholesterol/HDL Ratio 3.1 (<5.0) 12/31/18 04:00 Lipase 26 U/L (22-51) 12/30/18 03:26 Vitamin B12 3104 pg/mL (180-914) H 12/31/18 04:00 Folate 28.00 ng/mL (5.90 - >24.8) 12/31/18 04:00 Urine Color YELLOW 12/30/18 03:50 Urine Clarity CLEAR (CLEAR) 12/30/18 03:50 Urine pH 6.5 PH (5.0-7.5) 12/30/18 03:50 Ur Specific [place] 1.020 (1.002-1.030) 12/30/18 03:50 Urine Protein NEGATIVE mg/dL (NEGATIVE) 12/30/18 03:50 Urine Glucose (UA) NEGATIVE mg/dL (NEGATIVE) 12/30/18 03:50 Urine Ketones TRACE mg/dL (NEGATIVE) 12/30/18 03:50 Urine Occult Blood NEGATIVE (NEGATIVE) 12/30/18 03:50 Urine Nitrite NEGATIVE (NEGATIVE) 12/30/18 03:50 Urine Bilirubin NEGATIVE (NEGATIVE) 12/30/18 03:50 Urine Urobilinogen 2 E.U./dL (NORMAL) H 12/30/18 03:50 Ur Leukocyte Esterase NEGATIVE (NEGATIVE) 12/30/18 03:50 Ur Microscopic Review NOT INDICATED 12/30/18 03:50 Urine Culture Comments NOT INDICATED 12/30/18 03:50 Nasal Screen MRSA (PCR) NEGATIVE (NEGATIVE) 12/30/18 Unknown - Procedures Procedures: Procedures EXCISE CORD/EPID LES NEC (02/22/14) LAPAROSCOP APPENDECTOMY (10/29/13) OTH & OPEN REPAIR INDIRECT INGUINAL HERNIA W GRFT OR PROSTH (02/22/14)
[2019-01-01] MEDS ORDERED: POTASSIUM CHLORIDE 20 MEQ/15 ML UDC PO ONE (12:00)
[2019-01-01] MEDS: CLOPIDOGREL 75 MG TABLET PO SCH (12:25)
[2019-01-01] MEDS: MIDODRINE 2.5 MG TABLET PO SCH ×2 (12:29→19:09)
[2019-01-01] MEDS: POTASSIUM CHLORIDE 20 MEQ/15 ML UDC PO SCH (15:14)
--- NOTE | 2019-01-01 19:43 | MRI Report ---
Reason: CVA 4 days ago Procedure Date: 01/01/2019 Accession Number: [id number] / [id number] Procedure: MRI - Brain W/O CPT Code: FULL RESULT: EXAM: MRI BRAIN WITHOUT CONTRAST. EXAM DATE: 01/01/2019 02:42 PM. CLINICAL HISTORY: Cerebrovascular accident 4 days ago. COMPARISON: MRI brain 07/11/2017. TECHNIQUE: Multiplanar, multisequence T1-weighted and fluid-sensitive MR sequences of the brain were performed. Sequences optimized for routine evaluation. Other: None. IV Contrast: None. FINDINGS: No abnormal magnetic susceptibility is seen in the brain parenchyma. There is faint restricted diffusion signal on image 64 of series 605. There is no low ADC map signal suggesting that this reflects T2 shine through. There is central FLAIR hyperintense signal in the manav which is stable. A few punctate FLAIR hyperintensities are seen in the cerebral hemisphere white matter bilaterally and are unchanged. Ventricles are stable in size. No extra-axial fluid collection is present. No cerebellar tonsillar ectopia is present. No mass is present in either orbit. No mass is present in either Meckel's cave. There is an expected flow void in the major intracranial vessels at the skull base. IMPRESSION: 1. No definite acute CVA is present on diffusion-weighted imaging. 2. Stable FLAIR hyperintensities in the cerebral hemisphere white matter bilaterally and in the central manav might well reflect stable small vessel ischemic change. RADIA
[2019-01-01] MEDS: FAMOTIDINE 20 MG TABLET PO SCH (21:15)
[2019-01-02] MEDS: SODIUM CHLORIDE FLUSH 0.9% 10 ML SYRINGE IVP SCH ×2 (00:09→09:03)
[2019-01-02] MEDS: ENOXAPARIN 80 MG/0.8 ML SYRINGE SUBQ SCH ×2 (00:29→12:08)
[2019-01-02] MEDS: HYDROcod/ACETAM 5/325 MG TABLET PO PRN (05:08)
[2019-01-02 06:05] LABS: BASOPHILS % (AUTO) 0.9 %; EOSINOPHILS # (AUTO) 0.2 10^3/uL (0.0-0.7); EOSINOPHILS % (AUTO) 5.4 %; HGB - HEMOGLOBIN 11.1 g/dL (14.0-18.0); LYMPHOCYTES # (AUTO) 1.2 10^3/uL (1.5-3.5); LYMPHOCYTES % (AUTO) 30.3 %; MEAN CORPUSCULAR HGB CONC 33.5 g/dL (32.0-36.0); MEAN CORPUSCULAR VOLUME 101.2 fL (80.0-94.0); MEAN PLATELET VOLUME 8.3 fL (7.4-11.4); MONOCYTES # (AUTO) 0.4 10^3/uL (0.0-1.0); MONOCYTES % (AUTO) 9.3 %; NEUTROPHILS # (AUTO) 2.2 10^3/uL (1.5-6.6); NEUTROPHILS % (AUTO) 54.1 %; PLT - PLATELET COUNT 183 10^3/uL (130-450); RED BLOOD COUNT 3.28 10^6/uL (4.70-6.10); RED CELL DISTRIBUTION WIDTH 14.2 % (12.0-15.0); WHITE BLOOD COUNT 4.1 x10^3/uL (4.8-10.8)
[2019-01-02 06:09] LABS: CALCIUM 8.2 mg/dL (8.5-10.3); CREATININE 0.5 mg/dL (0.6-1.2); MAGNESIUM 1.9 mg/dL (1.7-2.8); PHOSPHORUS 3.1 mg/dL (2.5-4.6)
[2019-01-02] MEDS ORDERED: diltiaZEM CD 120 MG CAPSULE PO SCH (09:00)
[2019-01-02] MEDS: DONEPEZIL 5 MG TABLET PO SCH (09:01)
[2019-01-02] MEDS: CLOPIDOGREL 75 MG TABLET PO SCH (09:01)
[2019-01-02] MEDS: FAMOTIDINE 20 MG TABLET PO SCH (09:01)
[2019-01-02] MEDS: ASPIRIN EC 81 MG TABLET PO SCH (09:01)
[2019-01-02] MEDS: SERTRALINE 50 MG TABLET PO SCH (09:02)
[2019-01-02] MEDS: FLUDROCORTISONE 0.1 MG TABLET PO SCH (09:02)
[2019-01-02] MEDS: MIDODRINE 2.5 MG TABLET PO SCH ×2 (09:02→12:45)
[2019-01-02] MEDS: DROXIDOPA 300 MG PO SCH ×2 (09:03→12:45)
[2019-01-02] MEDS: POTASSIUM CHLORIDE 20 MEQ/15 ML UDC PO SCH (09:03)
[2019-01-02] MEDS: FLUTICASONE NASAL SPRAY NAS SCH (09:03)
--- NOTE | 2019-01-02 11:14 | CONSULTATION NOTE ---
DATE OF SERVICE: 01/01/2019 Physician: Tanja Murillo MD REQUESTING PHYSICIAN: Taylor Campa MD. REASON FOR CONSULTATION: Left shoulder fracture post fall. HISTORY OF PRESENT ILLNESS: Patient is a 78-year-old male who had a fall approximately one week prior to presenting to the emergency room with right-sided weakness and numbness with initial concerns for stroke. The patient has a prior history of Parkinson's and has had right-sided weakness for two years and a history of falling. The patient states his most recent fall was directly onto his back, but he has presented complaining of shoulder pain on the left side and over the course of a couple of days of admission, has had right shoulder pain and arm pain. PAST MEDICAL/SURGICAL HISTORY: His prior medical history is reviewed with past surgeries of appendectomy and hiatal hernia, history of cardiac stents, cataracts, tonsils and adenoids. PERTINENT MEDICAL HISTORY: Coronary artery disease, [place], hypertension, high cholesterol, Parkinson's disease, and possible stroke. The patient also orthopedically has had osteoarthritis in joints in his body, but no known replacements. Most of the patient's prior medical history is derived from the patient's admission in the emergency room notes, and the patient is noted to be a very poor historian, and there is no one else present supplementing information or history. PHYSICAL EXAMINATION The physical exam shows a somewhat confused 78-year-old male who gives a prolonged descriptions and rambling of health care issues but does not seem to be focused. He is not slurring his speech. He reports actually more pain extending down his right arm from the neck area down to the ulnar side of his hand on the right side, than he is having with a known acromial fracture in his left shoulder, but he is not able to move his shoulder well without pain on the left, whereas he can move the right shoulder just fine and has been noted to be moving it frequently and using his arm for activities. He is not having abdominal or rib pain or lower extremity pain. Further evaluation of his right shoulder and neck reveals tenderness at the base of his neck and across the upper trapezius muscle with no bruising or discoloration. He has tenderness and pain extending down his arm and seems to have weakness in abduction of fingers and in flexion of fingers and wrist, and with some sense of diminished feeling on that side of his hand with normal pulses and a warm hand. He has excellent shoulder motion both passive and active, and normal cuff strength. The patient's left upper extremity is very tender at the acromion. He has pain in that area with moving his shoulder. He does not seem to have cuff weakness, but it is difficult to determine. He does not have any pain extending down his arm, and a normal neurovascular exam. IMAGES X-rays are reviewed. Left shoulder x-rays reveal a nondisplaced base of acromial fracture and a normal-appearing glenohumeral articulation. The patient's right shoulder is normal appearing with no evidence of fracture or dislocation. The patient has a chest x-ray image, which is obscured for evaluation of his lower cervical spine. He has not had specific cervical spine x-rays recently. In the past he has had a CT scan of his neck, which revealed arthritic changes in the lower cervical area consistent with his age. IMPRESSION This 78-year-old male has two orthopedic oriented issues: 1. Nondisplaced acromial fracture of his left shoulder, which seems to be handled just fine with the patient utilizing his arm as tolerated, not requiring a sling as it would get in his way and be obnoxious and would not really benefit him or give him pain relief at this time. This fracture would be expected to go to uneventful healing. 2. The patient's right arm and shoulder pain does not appear to be secondary to a primary shoulder problem, and appears to be a radicular pain in a C7 or C8 distribution, and this bears observation and may be related to stroke injury or cervical spine radiculopathy issues. Possible continued followup of this is indicated and later on possible nerve conduction tests if the patient persists with hand weakness and diminished function. TD: 01/02/2019 09:22 [email or web address]
--- NOTE | 2019-01-02 11:27 | Discharge Plan ---
"Discharge Plan for SNF / [facility] - Discharge Plan And Transition Orders Disposition: 03 SNF DC/Xfer Condition: Stable Allergies and Adverse Reactions: Allergies Allergy/AdvReac Type Severity Reaction Status Date / Time morphine Allergy Hallucinati Verified 12/30/18 02:39 ons - SNF / [facility] Transition Orders Admit to (Facility): [facility] Discharge Diagnosis: 1. Right arm radiculopathy with weakness and pain 2. New onset atrial fibrillation with RVR 3. Parkinson's disease 4. Dysphagia and dysphonia secondary to Parkinson's disease 5. Orthostatic hypotension 6. Displaced fracture of lateral end of left clavicle after a fall 7. Frequent falls at home 8. Diffuse generalized weakness Medicare Certification Statement: I certify that [facility] care is medically necessary on a continuing basis for any of the conditions for which she/he is receiving care during hospitalization. Notify PCP of admission and forward orders to primary provider for signature. Weight on admission and: Weekly Call PCP immediately if weight increases by: 2.2 kg Other Notification Orders: Call PCP immediately if patient develops dyspnea, chest pain/tightness or edema. House Bowel Program: Yes Additional Bowel Program Orders: If no BM after 2 days, nurse may give M.O.M. 30ml PO PRN and/or ducolax Supp 1 [place] and/or BRUNO 250mg P.O., and/or senna 1-2 tabs PO. On day 3 nurse may give repeat above order until residents constipation is resolved. Annual Influenza Vaccine (between Jun 17 and January 14): Yes Two-step PPD per [facility] [phone] or approved exception documents: Yes Orthopedic Orders: Patient has healing fracture of left shoulder. At this time range of motion exercises are allowed. Gradually increase range of motion. He does not need a sling at this time. Medication Orders: PLEASE REFER TO THE DISCHARGE MEDICATION LIST. Insulin Orders?: No - Medications New Prescriptions: HYDROcod/ACETAM 5/325 [[place] 5/325] 1 tab PO Q6HR PRN #30 tablet PRN Reason: Pain - Diet Type: Geriatric Texture: Puree Liquids: Thin - Therapies | Activity Therapy: Evaluation | Treat if indicated: Speech (For dysphonia from Parkinson's), PT, OT Rehabilitation Potential: Return to independent living Activity: Activity as Tolerated Weight Bearing: Full Weight Assistance Devices: Wheelchair, Walker Additional Instructions: The patient was admitted for 2 days of sudden onset right neck pain, right arm pain, and right hand weakness with a recent fall on the left shoulder resulting in a fracture. CT of head is negative as is MRI of the head for stroke. We think he may have C-spine radiculopathy. He has Parkinson's disease and is deconditioned and its resulting in increasing falls. He is having more problems with swallowing and phonation. Will need rehab to increase endurance, and speech therapy to help with phonation."
[2019-01-02] MEDS ORDERED: POTASSIUM CHLORIDE 20 MEQ/15 ML UDC PO SCH (12:00)
[2019-01-02] MEDS: LIDOCAINE PATCH 5% TOP PRN (12:35)
[2019-01-02] MEDS: KETOROLAC 15 MG/ML VIAL IVP PRN (12:36)
[2019-01-02 12:39] VITALS: BP 120/55
--- NOTE | 2019-01-02 15:14 | XRAY Report ---
Reason: radicular C7 pain on right shoulder>arm Procedure Date: 01/02/2019 Accession Number: [id number] / [id number] Procedure: XR - Cervical Spine Complete CPT Code: FULL RESULT: EXAM: CERVICAL SPINE RADIOGRAPHY EXAM DATE: 01/02/2019 02:54 PM. CLINICAL HISTORY: Radicular C7 pain on right shoulder arm. COMPARISONS: CERVICAL SPINE W/O 07/10/2017 10:47 AM. TECHNIQUE: 5 views. FINDINGS: Alignment: Normal. No spondylolisthesis or scoliosis. Bones: The cervical vertebral bodies and posterior elements are well-visualized from the skull base through C7. No fractures or bone lesions. Disks: Mild disk space narrowing at C5-C6. Facets: Mild facet arthrosis at C4-C5 and C5-C6. Neural Foramina: Mild right-sided foraminal narrowing at C5-C6, similar to comparison CT scan of the cervical spine 07/10/2017. Soft Tissues: Normal. No prevertebral soft tissue swelling. The visualized lung apices are clear. IMPRESSION: Mild right-sided bony neural foraminal narrowing at C5-C6, similar to comparison CT scan from 2016. RADIA
--- NOTE | 2019-01-05 02:43 | DISCHARGE SUMMARY ---
Physician: Ana Brooks MD DATE OF ADMISSION: 12/30/2018 DATE OF DISCHARGE: 01/02/2019 DISCHARGE DIAGNOSES 1. Right arm radiculopathy with right arm pain and hand weakness. 2. New-onset atrial fibrillation with rapid ventricular response. 3. Parkinson's disease. 4. Orthostatic hypotension due to Parkinson's disease. 5. Falls due to orthostatic hypotension. 6. Hypokalemia. 7. Displaced fractures through the base of the acromion process, left shoulder, with additional irre gularity of the scapular body, possibly indicating additional fracture. 8. Dysphonia due to Parkinson's disease. 9. Dementia due to Parkinson's disease. PRINCIPAL PROCEDURES 1. Chest x-ray with stable negative view and no infiltrates. 2. Head CT with generalized age-related cortical atrophic changes without evidence of acute intracra nial abnormality. 3. Shoulder x-ray showing the mildly displaced fractures. 4. Carotid Doppler study with irregular calcified plaque seen in the carotid bifurcations and proxim al internal carotid arteries bilaterally. Normal antegrade flow present in the bilateral vertebral a rteries. The right has 50-69% by velocity stenosis. The left has less than 50% by velocity stenosis . 5. Brain MRI with no definite acute stroke seen on diffusion-weighted imaging. Stable FLAIR hyperin tensities in the cerebral hemisphere in white matter bilaterally and in the central manav, reflecting stable small vessel ischemic changes. 6. C-spine x-ray compared to CT spine 07/10/2017. Mild right-sided bony neural foraminal narrowing at C5-C6, similar to comparison CT scan from 2017. MEDICATIONS 1. Tylenol 650 mg every 4 hours as needed for fever or headache or pain. 2. Redby 5/325 one tablet every 6 hours as needed for pain. 3. Rytary extended-release 23.75/95 mg capsule. Four capsules at 1800, 1300, 1900. 4. Plavix 75 mg a day that was started empirically, but may be discontinued at the discretion of [facility] care provider. 5. Diltiazem CD 120 mg p.o. daily. 6. Donepezil 10 mg p.o. daily. 7. Northera 300 mg capsule, two capsules at 800, 1300, 1900. 6. Florinef 0.1 mg p.o. b.i.d. 7. Fluticasone propionate nasal spray, 2 sprays in nares daily. 8. Folbic 2.5/25/2 mg one tablet daily. 9. Lidoderm patch to affected area for 12 hours daily. 9. Midodrine 5 mg at 0800, 1300, and 1800. 10. Potassium chloride 20 mEq p.o. q.i.d. 11. Sertraline 100 mg p.o. daily. HOSPITAL COURSE: The patient is a 78-year-old white male who has Parkinson's disease with frequent f alls. He has autonomic dysfunction with severe orthostatic hypotension that, between the movement di sorder and hypotension, has caused frequent falls in this elderly gentleman. He has a history of an old stroke. He still ambulates in his home using a walker, but not a cane. Three days ago, he fell and he thinks he hit his right thigh. reports syncope when he falls. Two days ago, he began terry ving weakness of his right arm the day after his fall. The weakness did not resolve after 48 hours a nd he could not feed himself, the had to feed him, and he was intermittently confused. She brou ght him to the emergency room because of this weakness and a head CT was done and showed no stroke. The patient was brought in as possible stroke because of the continued arm weakness. While he was in the emergency room, he was diagnosed as new-onset atrial fibrillation with a right ventricular respo nse. He did not feel this. There is no prior history of atrial fibrillation. The patient was placed in the hospital thinking that he had and completed a stroke. In evaluating steff arguello for his falls, he had an x-ray where he has a left shoulder fracture. Dr. Heath Murillo saw him in c onsultation and feels that the patient had a nondisplaced acromial fracture of the left shoulder. It does not require a sling; eventually, it should be healing. He also felt that the right arm and luc ulder pain were not secondary to a primary shoulder problem and appeared to be a radicular C7 or C8 d istribution. He did not feel this was part of a stroke. The rest of his physical exam confirmed thi s and this patient does have masked facies, intention tremor, stiff movement when you bend his elbow and flex his hips and knees, but no focal deficits in any part of the right side of his body, correla ting with the right arm weakness. C-spine films were done to make sure there was no C-spine patholog y and the above results were noted for arthritis and degenerative changes. During his stay, he did not have any further falls. Hypokalemia was treated. He was noted to have d ysphonia that was getting worse with the Parkinson's disease and speech therapy saw him. He does fee l that he would benefit from speech therapy treatment in view of his Parkinson's disease and most lik narinder some dysphagia. During his stay, he has memory loss evident. Sometimes he would have mild sundowning at night, but w as always cooperative, easily prompted. His new-onset atrial fibrillation responded to Cardizem drip and he converted on his own the day befo re discharge. He had been started on a statin, Plavix and aspirin because of his "possible stroke." Statin and aspirin were discontinued. Plavix was continued with his history of old stroke. I would leave it to the discretion to the PCP to continue it or not. Echocardiogram showed atrial fibrillati on, an ejection fraction of 50-55%. Unable to determine diastolic dysfunction. Moderate increase in left atrial volume. Right-sided heart disease was not evident and he had minimal valvular disease. Because of his falls, and this is now the second admission this last few weeks, the patient is very w eak. It is getting harder and harder for him to ambulate. He was seen by physical therapy, who felt he would be a candidate for physical therapy rehabilitation short-term at a group home facility . As such, the patient was transferred to [facility]. It is hoped that he will have physical therapy to i mprove his endurance and his strength to then help him at home with his . He is continued on mid odrine for his orthostatic hypotension. PHYSICAL EXAMINATION AT DISCHARGE VITAL SIGNS: Temperature was 36.3, pulse 67, blood pressure 120/55, respirations 16, saturation 98% on room air. Orthostatic blood pressure showed him to have a supine blood pressure of 114/44, a sitt ing blood pressure of 120/55, and a standing blood pressure of 102/48. GENERAL APPEARANCE: He is an alert, cachectic, elderly gentleman with masked facies, bradykinesia, a nd pleasant affect. NECK: Supple, but he complains of stiffness, but he is slowly able to follow my command of putting h is chin to his chest, and turning his head to the right and left. JOINTS: Severe pain with abduction of the left shoulder. Right shoulder has stiffness and stiffness of movement of the joint, but no pain. He does have mild decreased strength in the right wrist plan tar and dorsiflexion in comparison to the left wrist and some mild pain at the wrist joint. When I f jl and extend his elbow, triceps and biceps appear similar to strength on the left side. NEUROLOGIC: He does not have facial asymmetry, speech is slowed and occasionally slurred, but I feel this is secondary to Parkinson's disease. There is no asymmetry of his facial muscles. LUNGS: Clear. He has regular rate and rhythm with a systolic ejection murmur at left lower sternal border. ABDOMEN: Soft, nontender. EXTREMITIES: Minimal edema around the ankles. He walks with a slow, shuffling gait and needs a walk er. Greater than 30 minutes was spent coordinating discharge. The patient should see his primary care Dr. Cassy sue, in followup. TD: 01/04/2019 18:48
== END 2019-01-02 13:15 | DRG 74 ==
LOC: EDUNIT# → ED 02:30 → ICU 11:20 → MS2 12-31 13:39
PROVIDERS: ADMIT Internal Medicine; ATTEND Specialist
DX: I63.9 Cerebral infarction, unspecified (principal); G81.91 Hemiplegia, unspecified affecting right dominant side; R47.1 Dysarthria and anarthria; M54.12 Radiculopathy, cervical region; F05 Delirium due to known physiological condition; E78.00 Pure hypercholesterolemia, unspecified; R64 Cachexia; M48.02 Spinal stenosis, cervical region; I48.91 Unspecified atrial fibrillation; G20 Parkinson's disease; R13.10 Dysphagia, unspecified; R29.705 NIHSS score 5; R49.0 Dysphonia; F02.80 Dementia in other diseases classified elsewhere, unspecified severity, without behavioral disturbance, psychotic disturbance, mood disturbance, and anxiety; I95.1 Orthostatic hypotension; E87.6 Hypokalemia; S42.125A Nondisplaced fracture of acromial process, left shoulder, initial encounter for closed fracture; W19.XXXA Unspecified fall, initial encounter; Y92.009 Unspecified place in unspecified non-institutional (private) residence as the place of occurrence of the external cause; R53.1 Weakness; E86.0 Dehydration; F45.8 Other somatoform disorders; D53.9 Nutritional anemia, unspecified; I10 Essential (primary) hypertension; I65.23 Occlusion and stenosis of bilateral carotid arteries; I25.10 Atherosclerotic heart disease of native coronary artery without angina pectoris; K21.9 Gastro-esophageal reflux disease without esophagitis; H91.90 Unspecified hearing loss, unspecified ear; M19.90 Unspecified osteoarthritis, unspecified site; Z79.899 Other long term (current) drug therapy; R29.6 Repeated falls; Z66 Do not resuscitate; Z91.81 History of falling; Z68.23 Body mass index [BMI] 23.0-23.9, adult; I25.2 Old myocardial infarction; Z95.5 Presence of coronary angioplasty implant and graft; Z87.891 Personal history of nicotine dependence; Z86.73 Personal history of transient ischemic attack (TIA), and cerebral infarction without residual deficits
CPT/HCPCS: 36415; 51703; 70450; 70551; 71045; 72050; 73020; 73030; 80048; 80053; 80061; 81003; 82607; 82746; 83605; 83690; 83735; 84100; 84132; 84484; 85025; 87150; 92610; 93005; 93306; 93880; 96361; 96365; 97116; 97162; 99285; A9270; J1650; J7120; 81001; 83721; 87086